=== PATIENT | female | born 1965 | race American Indian/Alaskan Native ===

== ENCOUNTER 2016-10-11 12:33 | Emergency (ER) | payer MEDICARE ==
[2016-10-11 13:39] LABS: Urine Drugs of Abuse Note Disclamer
[2016-10-11 13:55] LABS: Bacteria,Urine 1+ /HPF (Negative); Bilirubin,Urine NEG (Negative); Blood,Urine SM (Negative); Ketones,Urine 20 mg/dL (Negative); Leukocyte Esterase,Urine NEG (Negative); Mucus,Urine FEW /HPF; Nitrite,Urine NEG (Negative)
[2016-10-11 14:30] LABS: Basophils % (Auto) 0.7 % (0.0-1.8); Eosinophils % (Auto) 1.4 % (0.0-4.3); Hematocrit 37.8 % (30.3-42.9); Hemoglobin 12.6 gm/dl (10.1-14.3); Mean Corpuscular HGB Conc 33 % (30-34); Mean Corpuscular Hemoglobin 29 pg (28-32); Mean Corpuscular Volume 88 fl (79-97); Platelet Count 163 K/mm3 (140-440); Red Blood Count 4.32 M/mm3 (3.65-5.03); Red Cell Distribution Width 15.3 % (13.2-15.2)
[2016-10-11 14:31] LABS: Anion Gap 15 mmol/L; BUN/Creatinine Ratio 25.71; Blood Urea Nitrogen 18 mg/dL (7-17); Calcium 8.5 mg/dL (8.4-10.2); Carbon Dioxide 30 mmol/L (22-30); Glucose 260 mg/dL (65-100); Sodium 140 mmol/L (137-145)
[2016-10-11 14:40] LABS: INR 1.86 (0.87-1.13)
[2016-10-11] MEDS ORDERED: CATAPRES PO ONE (15:07)
[2016-10-11] MEDS ORDERED: APRESOLINE PO ONE (15:08)
[2016-10-11] MEDS ORDERED: NORVASC PO ONE (15:20)
[2016-10-11] MEDS ORDERED: COREG PO ONE (15:22)
--- NOTE | 2016-10-11 19:01 | Emergency Department Report ---
ED Psych HPI - General Chief Complaint: Psych Stated Complaint: EVALUATION Time Seen by Provider: 10/11/16 15:11 Source: EMS Mode of arrival: Stretcher - History of Present Illness Initial Comments: Patient is a 50-year-old female past medical history schizophrenia and diabetes who presents from [facility] for medical clearance. Patient was in her blood pressure checked and it was elevated. She states that she wants to go back to [facility]. She denies having any homicidal or suicidal ideation. However the triage summary states that she wants to cut her wrists. Patient also states that she is currently hearing voices at the moment. Patient symptoms are moderate and nothing makes them better or worse. They have been going on for the last 2 days. Patient denies having chest pain nausea vomiting or any fever. - Related Data Allergies Allergy/AdvReac Type Severity Reaction Status Date / Time hydrocortisone Allergy Unknown Verified 10/11/16 13:24 [From [facility]] yerba maya [From [facility]] Allergy Unknown Verified 10/11/16 13:24 ED Review of Systems ROS: Stated complaint: EVALUATION Other details as noted in HPI Constitutional: denies: chills, fever Eyes: denies: eye pain, eye discharge, vision change ENT: denies: ear pain, throat pain Respiratory: denies: cough, shortness of breath, wheezing Cardiovascular: denies: chest pain, palpitations Endocrine: no symptoms reported Gastrointestinal: denies: abdominal pain, nausea, diarrhea Genitourinary: denies: urgency, dysuria, discharge Musculoskeletal: denies: back pain, joint swelling, arthralgia Skin: denies: rash, lesions Neurological: denies: headache, weakness, paresthesias Psychiatric: auditory hallucinations. denies: anxiety, depression, homicidal thoughts, suicidal thoughts Hematological/Lymphatic: denies: easy bleeding, easy bruising ED Past Medical Hx - Past Medical History Hx Hypertension: Yes Hx Diabetes: Yes Hx Seizures: Yes Hx Psychiatric Treatment: Yes (Schizophrenia) Additional medical history: Neuropathy, Hyperlipidemia - Social History Smoking Status: Never Smoker Substance Use Type: None ED Physical Exam - General Limitations: No Limitations General appearance: alert, in no apparent distress - Head Head exam: Present: atraumatic, normocephalic - Eye Eye exam: Present: normal appearance - ENT ENT exam: Present: mucous membranes moist - Neck Neck exam: Present: normal inspection - Respiratory Respiratory exam: Present: normal lung sounds bilaterally. Absent: respiratory distress - Cardiovascular Cardiovascular Exam: Present: regular rate, normal rhythm. Absent: systolic murmur, diastolic murmur, rubs, gallop - GI/Abdominal GI/Abdominal exam: Present: soft, normal bowel sounds - Extremities Exam Extremities exam: Present: normal inspection - Back Exam Back exam: Present: normal inspection - Neurological Exam Neurological exam: Present: alert, oriented X3, CN II-XII intact - Psychiatric Psychiatric exam: Present: flat affect, other (auditory hallucinations). Absent : homicidal ideation, suicidal ideation - Skin Skin exam: Present: warm, dry, intact, normal color. Absent: rash ED Course Vital Signs 10/11/16 10/11/16 10/11/16 13:24 14:36 15:45 Temperature 98.0 F Pulse Rate 64 65 Respiratory Rate Blood Pressure 209/92 230/95 Blood Pressure 213/78 [Left] O2 Sat by Pulse 96 Oximetry 10/11/16 10/11/16 10/11/16 15:46 16:26 17:15 Temperature Pulse Rate 65 65 74 Respiratory 16 16 Rate Blood Pressure 230/95 Blood Pressure 192/67 173/68 [Left] O2 Sat by Pulse 95 95 Oximetry - Reevaluation(s) Reevaluation #1: 10/11/16 19:00 [facility] states that therefore I'll have patient be evaluated by mental health worker. Also see if the patient can be transferred to [facility]. Reevaluation #2: 10/11/16 19:45 Mental health worker has evaluated patient and I will sign [id number] hold for patient to the patient needing to go to refer [facility] and patient now stating that she wants to slice her wrists. ED Medical Decision Making - Lab Data Result diagrams: 10/11/16 14:01 10/11/16 14:01 Lab Results 10/11/16 10/11/16 10/11/16 Range/Units 13:30 13:30 14:01 WBC (4.5-11.0) K/mm3 RBC (3.65-5.03) M/mm3 Hgb (10.1-14.3) gm/dl Hct (30.3-42.9) % MCV (79-97) fl MCH (28-32) pg MCHC (30-34) % RDW (13.2-15.2) % Plt Count (140-440) K/mm3 Lymph % (Auto) (13.4-35.0) % [place] % (Auto) (0.0-7.3) % Eos % (Auto) (0.0-4.3) % Baso % (Auto) (0.0-1.8) % Lymph # (1.2-5.4) K/mm3 [place] # (0.0-0.8) K/mm3 Eos # (0.0-0.4) K/mm3 Baso # (0.0-0.1) K/mm3 Seg Neutrophils % (40.0-70.0) % Seg Neutrophils # (1.8-7.7) K/mm3 PT (12.2-14.9) Sec. INR (0.87-1.13) Sodium 140 (137-145) mmol/L Potassium 4.0 (3.6-5.0) mmol/L Chloride 99.0 (98-107) mmol/L Carbon Dioxide 30 (22-30) mmol/L Anion Gap 15 mmol/L BUN 18 H (7-17) mg/dL Creatinine 0.7 (0.7-1.2) mg/dL Estimated GFR > 60 ml/min BUN/Creatinine Ratio 25.71 % Glucose 260 H (65-100) mg/dL Calcium 8.5 (8.4-10.2) mg/dL Urine Color Yellow (Yellow) Urine Turbidity Clear (Clear) Urine pH 5.0 (5.0-7.0) Ur Specific [place] 1.032 H (1.003-1.030) Urine Protein 100 mg/dl (Negative) mg/dL Urine Glucose (UA) >=500 (Negative) mg/dL Urine Ketones 20 (Negative) mg/dL Urine Blood Sm (Negative) Urine Nitrite Neg (Negative) Urine Bilirubin Neg (Negative) Urine Urobilinogen 2.0 (<2.0) mg/dL Ur Leukocyte Esterase Neg (Negative) Urine WBC (Auto) 2.0 (0.0-6.0) /HPF Urine RBC (Auto) 5.0 (0.0-6.0) /HPF U Epithel Cells (Auto) 6.0 (0-13.0) /HPF Urine Bacteria (Auto) 1+ (Negative) /HPF Urine Mucus Few /HPF Urine Opiates Screen Presumptive negative Urine Methadone Screen Presumptive negative Ur Barbiturates Screen Presumptive negative Ur Phencyclidine Scrn Presumptive negative Ur Amphetamines Screen Presumptive negative U Benzodiazepines Scrn Presumptive negative Urine Cocaine Screen Presumptive negative U Marijuana (THC) Screen Presumptive negative Drugs of Abuse Note Disclamer Plasma/Serum Alcohol (0-0.07) gm% 10/11/16 10/11/16 10/11/16 Range/Units 14:01 14:01 14:01 WBC 10.0 (4.5-11.0) K/mm3 RBC 4.32 (3.65-5.03) M/mm3 Hgb 12.6 (10.1-14.3) gm/dl Hct 37.8 (30.3-42.9) % MCV 88 (79-97) fl MCH 29 (28-32) pg MCHC 33 (30-34) % RDW 15.3 H (13.2-15.2) % Plt Count 163 (140-440) K/mm3 Lymph % (Auto) 43.9 H (13.4-35.0) % [place] % (Auto) 6.0 (0.0-7.3) % Eos % (Auto) 1.4 (0.0-4.3) % Baso % (Auto) 0.7 (0.0-1.8) % Lymph # 4.4 (1.2-5.4) K/mm3 [place] # 0.6 (0.0-0.8) K/mm3 Eos # 0.1 (0.0-0.4) K/mm3 Baso # 0.1 (0.0-0.1) K/mm3 Seg Neutrophils % 48.0 (40.0-70.0) % Seg Neutrophils # 4.8 (1.8-7.7) K/mm3 PT 21.4 H (12.2-14.9) Sec. INR 1.86 H (0.87-1.13) Sodium (137-145) mmol/L Potassium (3.6-5.0) mmol/L Chloride (98-107) mmol/L Carbon Dioxide (22-30) mmol/L Anion Gap mmol/L BUN (7-17) mg/dL Creatinine (0.7-1.2) mg/dL Estimated GFR ml/min BUN/Creatinine Ratio % Glucose (65-100) mg/dL Calcium (8.4-10.2) mg/dL Urine Color (Yellow) Urine Turbidity (Clear) Urine pH (5.0-7.0) Ur Specific [place] (1.003-1.030) Urine Protein (Negative) mg/dL Urine Glucose (UA) (Negative) mg/dL Urine Ketones (Negative) mg/dL Urine Blood (Negative) Urine Nitrite (Negative) Urine Bilirubin (Negative) Urine Urobilinogen (<2.0) mg/dL Ur Leukocyte Esterase (Negative) Urine WBC (Auto) (0.0-6.0) /HPF Urine RBC (Auto) (0.0-6.0) /HPF U Epithel Cells (Auto) (0-13.0) /HPF Urine Bacteria (Auto) (Negative) /HPF Urine Mucus /HPF Urine Opiates Screen Urine Methadone Screen Ur Barbiturates Screen Ur Phencyclidine Scrn Ur Amphetamines Screen U Benzodiazepines Scrn Urine Cocaine Screen U Marijuana (THC) Screen Drugs of Abuse Note Plasma/Serum Alcohol < 0.01 (0-0.07) gm% - Medical Decision Making Chief medical diagnosis: Hypotension secondary to his essential hypertension Differential medical diagnosis: Substance induced mood disorder, psychosis, schizophrenia, bipolar CBC, CMP, urine drug screen, urinalysis and I'll give patient oral antihypertensive medication. Also I will have patient seen by mental health worker. Critical care attestation.: If time is entered above; I have spent that time in minutes in the direct care of this critically ill patient, excluding procedure time. ED Disposition Clinical Impression: HTN (hypertension) Qualifiers: Hypertension type: essential hypertension Qualified Code(s): I10 - Essential ( primary) hypertension Schizophrenia Qualifiers: Schizophrenia type: unspecified Qualified Code(s): F20.9 - Schizophrenia, unspecified Disposition: DC/TX-65 PSY HOSP/PSY UNIT Is pt being admited?: No Does the pt Need Aspirin: No Condition: Stable Instructions: Hypertension (ED) Referrals: PRIMARY CARE, [Primary Care Provider] - 3-5 Days
[2016-10-11] MEDS ORDERED: ALUM-MAG HYDROX-SIMETH 200-200-20MG/5ML PO PRN (19:46)
[2016-10-11] MEDS ORDERED: TYLENOL PO PRN (19:46)
[2016-10-11] MEDS ORDERED: COREG PO PRN (19:47)
[2016-10-12] MEDS ORDERED: NACL 0.9% 1000 ML 1,000 ML IV ONE (01:28)
[2016-10-12 15:20] VITALS: BP 135/82
== END 2016-10-12 18:50 ==
LOC: ED 12:33 → EEVIPCON 12:33 → ED 10-12 18:50
DX: F20.9 Schizophrenia, unspecified (principal); E11.9 Type 2 diabetes mellitus without complications; E78.00 Pure hypercholesterolemia, unspecified; E11.65 Type 2 diabetes mellitus with hyperglycemia
CPT/HCPCS: 36415; 80048; 80307; 81001; 82962; 85025; 85610; 96374; 99285; G0480; J7030; 80320; J1815

== ENCOUNTER 2019-10-06 23:06 | Emergency (ER) | payer SELFPAY ==
[2019-10-06] MEDS ORDERED: ASPIRIN 325 MG TAB PO ONE (23:23)
--- NOTE | 2019-10-07 00:07 | XRay Report ---
CHEST 1 VIEW, 10/06/2019 11:52 PM CLINICAL INFORMATION/INDICATION: Chest pain COMPARISON: None FINDINGS: SUPPORT DEVICES: None. HEART: The cardiac silhouette is normal in size. LUNGS/PLEURA: The lungs are clear of focal airspace disease or significant pleural effusion. ADDITIONAL FINDINGS: No additional acute findings. IMPRESSION: 1. No evidence of acute cardiopulmonary process. Signer Name: Heydi Marcelo MD Signed: 10/07/2019 12:03 AM Workstation Name: [id number]
[2019-10-07 00:32] LABS: BUN/Creatinine Ratio 21; Blood Urea Nitrogen 19 mg/dL (7-17); Calcium 9.7 mg/dL (8.4-10.2); Hemolysis Index 7
[2019-10-07 00:34] LABS: Hematocrit 33.9 % (30.3-42.9); Hemoglobin 11.5 gm/dl (10.1-14.3); Mean Corpuscular HGB Conc 34 % (30-34); Mean Corpuscular Volume 87 fl (79-97); Platelet Count 247 K/mm3 (140-440); Red Cell Distribution Width 15.8 % (13.2-15.2)
[2019-10-07 03:27] VITALS: BP 145/55
--- NOTE | 2019-10-07 04:07 | Emergency Department Report ---
ED Chest Pain HPI - General Chief Complaint: Chest Pain Stated Complaint: CP PUI?: No Time Seen by Provider: 10/07/19 03:54 Source: patient, EMS Mode of arrival: Stretcher Limitations: No Limitations - History of Present Illness Initial Comments: Mrs. Ashley is a 53-year-old female with history of diabetes mellitus, hypertension, schizophrenia, seizures, neuropathy, hyperlipidemia who presents with chest pain. Gradual onset this evening while she was getting out of the bathtub. Sharp mild pain. She denies chest pain. She denies shortness of breath. She denies leg pain. No previous history of cardiac disease. MD Complaint: chest pain -: Gradual, This evening Onset: during rest, during exertion Pain Location: substernal Severity: mild Quality: sharp Consistency: constant Improves With: nothing Worsens With: nothing re: denies: nausea, vomting, diaphoresis, dyspnea, sense of impending doom - Related Data Allergies Allergy/AdvReac Type Severity Reaction Status Date / Time hydrocortisone Allergy Unknown Verified 10/11/16 13:24 [From [facility]] yerba maya [From [facility]] Allergy Unknown Verified 10/11/16 13:24 Heart Score - HEART Score History: Slightly suspicious EKG: Normal Age: 45-65 Risk factors: > 3 risk factors or hx of atherosclerotic disease Troponin: < normal limit HEART Score: 3 ED Review of Systems ROS: Stated complaint: CP Other details as noted in HPI Comment: All other systems reviewed and negative Constitutional: denies: fever, malaise Respiratory: denies: cough, shortness of breath, wheezing Cardiovascular: chest pain Gastrointestinal: denies: abdominal pain, nausea, vomiting ED Past Medical Hx - Past Medical History Previous Medical History?: Yes Hx Hypertension: Yes Hx Diabetes: Yes Hx Seizures: Yes Hx Psychiatric Treatment: Yes (Schizophrenia) Additional medical history: Neuropathy, Hyperlipidemia - Surgical History Past Surgical History?: No - Social History Smoking Status: Current Every Day Smoker Substance Use Type: None ED Physical Exam - General Limitations: No Limitations General appearance: alert, in no apparent distress, other (Patient is sleeping once I enter examination room. She is easily arousable and gives a full history.) - Head Head exam: Present: atraumatic, normocephalic - Eye Eye exam: Present: normal appearance - ENT ENT exam: Present: mucous membranes moist - Neck Neck exam: Present: normal inspection, full ROM - Respiratory Respiratory exam: Present: normal lung sounds bilaterally. Absent: respiratory distress, wheezes, rales, rhonchi - Cardiovascular Cardiovascular Exam: Present: regular rate, normal rhythm, normal heart sounds. Absent: systolic murmur, diastolic murmur, rubs, gallop - GI/Abdominal GI/Abdominal exam: Present: soft, normal bowel sounds. Absent: distended, tenderness, guarding, rebound - Extremities Exam Extremities exam: Present: normal inspection - Back Exam Back exam: Present: normal inspection - Neurological Exam Neurological exam: Present: alert, oriented X3 - Psychiatric Psychiatric exam: Present: normal mood, flat affect - Skin Skin exam: Present: warm, dry, intact, normal color. Absent: rash ED Course Vital Signs 10/06/19 10/07/19 10/07/19 23:23 03:20 03:21 Temperature 97.7 F Pulse Rate 70 Respiratory 18 Rate Blood Pressure 140/61 O2 Sat by Pulse 97 96 97 Oximetry 10/07/19 10/07/19 10/07/19 03:23 03:24 03:25 Temperature Pulse Rate 63 59 L 64 Respiratory 14 13 13 Rate Blood Pressure 145/55 145/55 O2 Sat by Pulse 96 93 96 Oximetry ED Medical Decision Making - Lab Data Result diagrams: 10/06/19 23:52 10/07/19 Unknown Laboratory Results - last 24 hr 10/06/19 10/07/19 10/07/19 23:52 02:19 Unknown WBC 10.1 RBC 3.90 Hgb 11.5 Hct 33.9 MCV 87 MCH 30 MCHC 34 RDW 15.8 H Plt Count 247 Lymph # Piece Worker Sodium 142 Potassium 4.3 Chloride 104.9 Carbon Dioxide 23 Anion Gap 18 BUN 19 H Creatinine 0.9 Estimated GFR > 60 BUN/Creatinine Ratio 21 Glucose 313 H Calcium 9.7 Troponin T < 0.010 < 0.010 - EKG Data -: EKG Interpreted by Me EKG shows normal: sinus rhythm, axis, intervals, QRS complexes, ST-T waves Rate: normal - EKG Data Interpretation: normal EKG 10/07/19 04:06 EKG obtained 2316 interpreted by me Normal sinus rhythm normal rate normal axis normal intervals no ST elevation no ST-T signs of ischemia normal EKG - Radiology Data Radiology results: report reviewed Chest radiograph: No acute findings - Medical Decision Making Ms. Ashley presents with chest pain atypical for ACS. For initial examination, patient was sleeping comfortably. Without tachycardia shortness of breath I do not suspect pulmonary embolism or acute emergent cause of chest pain such as aortic dissection. With chest radiograph pneumothorax pneumonia have been ruled out. Patient was referred to outpatient medicine physician and armed custom protection officer. Referral request faxed to [facility]. She is discharged home. Critical care attestation.: If time is entered above; I have spent that time in minutes in the direct care of this critically ill patient, excluding procedure time. ED Disposition Clinical Impression: Chest pain Disposition: DC-01 TO HOME OR SELFCARE Is pt being admited?: No Does the pt Need Aspirin: No Condition: Stable Instructions: Chest Pain (ED) Referrals: KAREN PLATT MD [Staff Physician] - 3-5 Days YUMIKO MACDONALD MD [Staff Physician] - 3-5 Days
[2019-10-07 04:52] LABS: Anisocytosis 1+; Basophils % (Manual) 0 % (0.0-1.8); Platelet Estimate Consistent w Auto; Total Cells Counted 100
== END 2019-10-07 04:30 | disposition home or self-care (01) ==
LOC: ED 23:06
DX: R07.89 Other chest pain (principal); I10 Essential (primary) hypertension; E11.9 Type 2 diabetes mellitus without complications; Z86.69 Personal history of other diseases of the nervous system and sense organs; F20.9 Schizophrenia, unspecified; F17.200 Nicotine dependence, unspecified, uncomplicated; Z79.899 Other long term (current) drug therapy
CPT/HCPCS: 36415; 71045; 80048; 84484; 85007; 85025; 93005

== ENCOUNTER 2020-02-14 09:49 | Emergency (ER) | payer MEDICARE ==
[2020-02-14 09:57] VITALS: BP 148/61
--- NOTE | 2020-02-14 10:44 | Emergency Department Report ---
Chief Complaint: Extremity Injury, Lower Stated Complaint: LT HIP PAIN Time Seen by Provider: 02/14/20 10:42 - HPI History of Present Illness: no fall or trauma ambulatory to ER with l hip pain no neuro def or focal def - ROS Review of Systems: l hip pain for 3 days did not see pcp out of motrin at home - Exam Vital Signs: Vital Signs 02/14/20 09:56 Temperature 98.0 F Pulse Rate 71 Respiratory 18 Rate Blood Pressure 148/61 O2 Sat by Pulse 96 Oximetry Physical Exam: a/o nad ambulatory neurovasc intact dp plus 2 b no cva tenderness no abd pain abd snt no n/v/d no fever no cough no sob a/p without focal def MSE screening note: Focused history and physical exam performed. Due to findings the following was ordered: no life threat will see pcp in AM Patient discussed with doctor:: LISSET PARKER ED Disposition for MSE Clinical Impression: Hip pain Disposition: DC-01 TO HOME OR SELFCARE Condition: Stable Prescriptions: Ibuprofen [Ibu-200] 600 mg PO Q8H #14 tablet Referrals: KAREN PLATT MD [Staff Physician] - 3-5 Days
[2020-02-14] MEDS ORDERED: IBUPROFEN 800 MG TAB PO ONE (10:45)
== END 2020-02-14 10:50 | disposition left against medical advice (07) ==
LOC: ED 09:49
DX: M25.552 Pain in left hip (principal)
CPT/HCPCS: 99282

== ENCOUNTER 2020-03-04 07:16 | Emergency (ER) | payer SELFPAY ==
[2020-03-04 07:26] VITALS: BP 142/70
[2020-03-04] MEDS ORDERED: IBUPROFEN 800 MG TAB PO ONE (07:39)
--- NOTE | 2020-03-04 07:39 | Emergency Department Report ---
Chief Complaint: Extremity Problem,Nontraumatic Stated Complaint: HIP PAIN Time Seen by Provider: 03/04/20 07:37 - HPI History of Present Illness: Patient is a 54-year-old -[place] female who comes to the emergency room with acute on chronic left hip pain. Patient has no fall or trauma. She states her hip is hurt for over a month and she reports that she has been taking [id number] Motrin with no relief. Patient denies having seen her primary care doctor. Patient tells me that she does have a primary care doctor. However, when I called her friend and roommate the roommate says that there is a problem with her insurance and that they have been unable to verify her medical insurance. The friend as this is why she was brought to the emergency room. Patient has a medical history of diabetes, hypertension and schizophrenia. The patient and friend state that she is taking her medications. The friend adds that she has bubble packs of her medicines and is not out of her meds. When asked how she gets her medications they are mail order and the friend does not have know how they come or how they are paid for. I explained to the patient and friend that the patient has a nonmedical emergency. She has no acute traumatic injury to her hip. And that she really needs to be seen by primary care who can follow her not only for her hip pain but also her chronic medical conditions. She is can get to a point where she needs her medications refilled and be unable to get them refilled in the emergency room. I have encouraged him to be proactive in resolving this insurance issue and finding a primary care doctor to address these chronic is sues. - ROS Review of Systems: Left hip pain. Worse with movement. Ambulatory. Full range of motion of hip. Full range of motion of knee. Motrin alleviates the pain to some degree but does not take it away. Patient has not tried Tylenol. She has not tried warm bathing or compresses. - Exam Vital Signs: Vital Signs 03/04/20 07:23 Temperature 98.3 F Pulse Rate 76 Respiratory 16 Rate Blood Pressure 142/70 O2 Sat by Pulse 98 Oximetry Physical Exam: Patient is alert and oriented x4. Her friend brings her into the ER in a wheelchair. However, the patient is able to walk. She has no tenderness on palpation to the hip. Patient has full range of motion of the knee. Patient has no distal swelling. DP +2 bilaterally. Patient has a history of schizophrenia. No HI no SI. Denies hearing voices or seeing things that are not present. States that she is taking her schizophrenic medications. Patient is cooperative. MSE screening note: Focused history and physical exam performed. Due to findings the following was ordered: Patient has no life-threatening medical issues and is being MSE with PCP referral. Patient being discharged home. Her friend dropped her off is gone to work so patient is calling over for a ride home. Patient verbalizes understanding of the need to see primary care. She is has referral in her hand. She is also been encouraged to continue Motrin, Tylenol and warm baths and compresses. Patient discussed with doctor:: FERNANDO KEATING ED Disposition for MSE Clinical Impression: Chronic hip pain Disposition: MED SCREENING EXAM-LEFT Is pt being admited?: No Does the pt Need Aspirin: No Condition: Stable Instructions: Chronic Pain (ED) Additional Instructions: continue over the counter motrin and or tylenol for pain warm compresses referral to our PCP is given below Referrals: KAREN PLATT MD [Staff Physician] - 3-5 Days Time of Disposition: 07:38
== END 2020-03-04 08:00 | disposition left against medical advice (07) ==
LOC: ED 07:16
DX: M25.552 Pain in left hip (principal); Z53.21 Procedure and treatment not carried out due to patient leaving prior to being seen by health care provider

== ENCOUNTER 2020-06-02 22:08 | Emergency (ER) | payer OTHER ==
[2020-06-02 23:54] LABS: Basophils # (Auto) 0.1 K/mm3 (0.0-0.1); Basophils % (Auto) 0.9 % (0.0-1.8); Eosinophils # (Auto) 0.2 K/mm3 (0.0-0.4); Eosinophils % (Auto) 2.2 % (0.0-4.3); Hematocrit 33.8 % (30.3-42.9); Hemoglobin 11.3 gm/dl (10.1-14.3); Lymphocytes # (Auto) 4.5 K/mm3 (1.2-5.4); Lymphocytes % (Auto) 39.9 % (13.4-35.0); Mean Corpuscular HGB Conc 34 % (30-34); Mean Corpuscular Volume 89 fl (79-97); Monocytes # (Auto) 0.5 K/mm3 (0.0-0.8); Monocytes % (Auto) 4.7 % (0.0-7.3); Platelet Count 219 K/mm3 (140-440); Red Blood Count 3.81 M/mm3 (3.65-5.03); Red Cell Distribution Width 16.4 % (13.2-15.2)
[2020-06-02 23:59] LABS: Calcium 9.1 mg/dL (8.4-10.2)
--- NOTE | 2020-06-03 01:26 | Emergency Department Report ---
ED Psych HPI - General Chief Complaint: Psych Stated Complaint: AMS Time Seen by Provider: 06/03/20 01:19 Source: patient Mode of arrival: Ambulatory - History of Present Illness Initial Comments: 54-year-old female, history of schizophrenia, presents to ED with report of auditory hallucinations. Patient states voices are telling her to drown herself. Patient reports left-sided. States she did attempt to drown herself but states it did not work. Patient states she is supposed to be on psychiatric medications but has not been taking them. She denies any alcohol or drug. She denies any HI. Patient has fracture boot to right foot. States she broke her ankle a couple of weeks ago. MD Complaint: suicidal ideation, other -: unknown Associated Psychiatric Symptoms: suicidal ideation, auditory hallucinations Quality: constant Improves With: none Worsens With: medication Context: not taking psychiatric Associated Symptoms: denies other symptoms - Related Data Home Medications Medication Instructions Recorded Confirmed Last Taken Citalopram Hydrobromide [celeXA] 40 mg PO DAILY 06/03/20 06/03/20 Unknown Citalopram [celeXA] 20 mg PO QDAY 06/03/20 06/03/[address] [DepaKOTE DR] 500 mg PO BID 06/03/20 06/03/20 Unknown Losartan [Cozaar] 25 mg PO QDAY 06/03/20 06/03/20 Unknown Ziprasidone [Geodon] 40 mg PO DAILY 06/03/20 06/03/20 Unknown amLODIPine [Norvasc] 10 mg PO DAILY 06/03/20 06/03/20 Unknown traMADoL [Ultram] 50 mg PO Q4HR PRN 06/03/20 06/03/20 Unknown Allergies Allergy/AdvReac Type Severity Reaction Status Date / Time hydrocortisone Allergy Unknown Verified 03/04/20 07:26 [From [facility]] yerba maya [From [facility]] Allergy Unknown Verified 03/04/20 07:26 ED Review of Systems ROS: Stated complaint: AMS Other details as noted in HPI Comment: All other systems reviewed and negative Psychiatric: auditory hallucinations, suicidal thoughts ED Past Medical Hx - Past Medical History Hx Hypertension: Yes Hx Diabetes: Yes Hx Seizures: Yes Hx Psychiatric Treatment: Yes (Schizophrenia) Additional medical history: Neuropathy, Hyperlipidemia - Surgical History Hx Cholecystectomy: Yes - Social History Smoking Status: Current Every Day Smoker Substance Use Type: None - Medications Home Medications: Home Medications Medication Instructions Recorded Confirmed Last Taken Type Citalopram Hydrobromide [celeXA] 40 mg PO DAILY 06/03/20 06/03/20 Unknown History Citalopram [celeXA] 20 mg PO QDAY 06/03/20 06/03/[address] [DepaKOTE DR] 500 mg PO BID 06/03/20 06/03/20 Unknown History Losartan [Cozaar] 25 mg PO QDAY 06/03/20 06/03/20 Unknown History Ziprasidone [Geodon] 40 mg PO DAILY 06/03/20 06/03/20 Unknown History amLODIPine [Norvasc] 10 mg PO DAILY 06/03/20 06/03/20 Unknown History traMADoL [Ultram] 50 mg PO Q4HR PRN 06/03/20 06/03/20 Unknown History ED Physical Exam - General Limitations: No Limitations General appearance: alert, in no apparent distress - Head Head exam: Present: atraumatic, normocephalic - Eye Eye exam: Present: normal appearance - ENT ENT exam: Present: mucous membranes moist - Neck Neck exam: Present: normal inspection - Respiratory Respiratory exam: Absent: respiratory distress - Cardiovascular Cardiovascular Exam: Present: regular rate, normal rhythm - GI/Abdominal GI/Abdominal exam: Absent: distended - Extremities Exam Extremities exam: Present: other (Fracture boot right foot) - Neurological Exam Neurological exam: Present: alert, oriented X3 - Psychiatric Psychiatric exam: Present: normal affect, normal mood - Skin Skin exam: Present: warm, dry, intact, normal color ED Course Vital Signs 06/02/20 06/03/20 06/03/20 23:02 02:17 04:26 Temperature 98.3 F 98.3 F Pulse Rate 85 77 Respiratory 16 18 20 Rate Blood Pressure 154/64 Blood Pressure 114/55 [Right] O2 Sat by Pulse 98 97 98 Oximetry ED Medical Decision Making - Lab Data Result diagrams: 06/02/20 23:14 06/02/20 23:14 Critical care attestation.: If time is entered above; I have spent that time in minutes in the direct care of this critically ill patient, excluding procedure time. ED Disposition Condition: Stable Referrals: PRIMARY CARE, [Primary Care Provider] - 3-5 Days
[2020-06-03] MEDS ORDERED: SODIUM CHLORIDE 0.9% 1000 ML 1,000 ML IV ONE (03:20)
[2020-06-03] MEDS: traMADol 50 MG TAB PO PRN ×2 (05:00→11:25)
[2020-06-03 07:58] LABS: Bilirubin,Urine NEG (Negative); Blood,Urine NEG (Negative); Color,Urine Straw (Yellow); Mucus,Urine FEW /HPF; Urobilinogen,Urine < 2.0 mg/dL (<2.0)
[2020-06-03 08:04] LABS: Amphetamine Screen,Urine Negative; Benzodiazepines Screen,Urine Negative; Cannabinoid Screen,Urine Negative; Cocaine Screen,Urine Negative; Methadone Screen,Urine Negative; Opiate Screen,Urine Negative
--- NOTE | 2020-06-03 09:53 | Consultation ---
History of Present Illness - Reason for Consult Consult date: 06/03/20 Reason for consult: MHE Requesting physician: ROSE VALLEJO - History of Present Psychiatric Illness Per ED Provider: 54-year-old female, history of schizophrenia, presents to ED with report of auditory hallucinations. Patient states voices are telling her to drown herself. Patient reports left-sided. States she did attempt to drown herself but states it did not work. Patient states she is supposed to be on psychiatric medications but has not been taking them. She denies any alcohol or drug. She denies any HI. Patient has fracture boot to right foot. States she broke her ankle a couple of weeks ago. PSYCH HPI Patient is single, disabled 54-year-old -[place] female with past psychiatric history of schizophrenia and past medical history of diabetes, hypertension and seizure who currently resides in a personal group home presented to the ED with chief complaint of having hallucinations. Patient reported she has been having very bad hallucinations since last week, was hoping taking the medication that she had previously stopped after she traveled to attend a [facility] forgot to bring along her medications with her. She reports she is to resume her medication, but symptoms are still not gone awake she reports she has been hearing commanding auditory hallucination telling her to drown herself. She reportedly with psychiatric issues since age of 17, currently has 1 daughter who resides in [facility] and has 2 other cousins in the [facility] but rarely communicate. PAST PSYCHIATRIC HISTORY Diagnoses: Schizophrenia Suicide attempts or Self-harm behavior: Yes Prior psychiatric hospitalizations: Yes Substance Abuse history: Cocaine Previous psychiatric medications tried: Geodon, Celexa and Depakote Outpatient treatment: Yes PAST MEDICAL HISTORY: Hypertension, diabetes, seizures Family Psychiatric History: None reported or documented SOCIAL HISTORY Marital Status: Single Living Arrangements: Personal-group home Employment Status: Disabled Access to guns/weapons: None reported Education: College History of Abuse: None reported Legal History: None report REVIEW OF SYSTEMS Constitutional: Negative for weight loss ENT: Negative for stridor Respiratory: Negative for cough or hemoptysis All other systems reviewed and are negative MENTAL STATUS EXAMINATION General Appearance and Behavior: Age appropriate, good hygiene, wearing appropriate clothes, poor eye contact, cooperative polite with questioning. Cooperation: Cooperative Psychomotor Behavior: Psychomotor normal Mood: so-so Affect and affective range: dysthymic Thought Process:=Illogical, Thought Content: Obsessions, Hallucinations Speech: Normal rate volume and rhythm Intellectual Functioning: Average Suicidal Ideation: Denies SI Homicidal Ideation: Denies HI Impulse Control: Impaired Insight and Judgment: Impaired Memory: Short term memory impaired, Attention: Divided attention impaired Orientation: Alert, oriented Diagnoses: Assessment and Plan - Psychiatric problem (1) Schizophrenia Current Visit: Yes Status: Acute Treatment Plan We will resume patient's home medication MEDICATIONS: Risks, benefits and alternatives of medications discussed with the patient, questions answered and consent obtained from patient. PSYCHOTHERAPY: Supportive psychotherapy provided MEDICAL: Per primary team DELIRIUM PRECAUTIONS: Please re-orient patient frequently, keep lights on during the day, and minimize benzodiazepines and opiates as these medications could worsen patient's confusion. AGING ROOM HAND: DISPOSITION: Do Recommend acute inpatient psychiatric hospitalization at this time. Case discussed with Dr. Kan who agrees with current disposition LEGAL STATUS: 1013 FOLLOW-UP: Will follow Thank you for the consult. Please contact with any questions and/or concerns. Medications and Allergies Allergies Allergy/AdvReac Type Severity Reaction Status Date / Time hydrocortisone Allergy Unknown Verified 03/04/20 07:26 [From [facility]] yerba maya [From [facility]] Allergy Unknown Verified 03/04/20 07:26 Home Medications Medication Instructions Recorded Confirmed Last Taken Type Citalopram Hydrobromide [celeXA] 40 mg PO DAILY 06/03/20 06/03/20 Unknown History Citalopram [celeXA] 20 mg PO QDAY 06/03/20 06/03/[address] [Elda MACIEL] 500 mg PO BID 06/03/20 06/03/20 Unknown History Losartan [Cozaar] 25 mg PO QDAY 06/03/20 06/03/20 Unknown History Ziprasidone [Geodon] 40 mg PO DAILY 06/03/20 06/03/20 Unknown History amLODIPine [Norvasc] 10 mg PO DAILY 06/03/20 06/03/20 Unknown History traMADoL [Ultram] 50 mg PO Q4HR PRN 06/03/20 06/03/20 Unknown History Active Meds: Active Medications Divalproex Sodium (Divalproex Dr 500 Mg Tab) 500 mg PO BID BHASKAR Tramadol HCl (Tramadol 50 Mg Tab) 50 mg PO Q4HR PRN PRN Reason: PAIN Last Admin: 06/03/20 05:00 Dose: 50 mg Documented by: Mental Status Exam - Vital signs Last Vital Signs Temp 98.3 F 06/03/20 02:17 Pulse 77 06/03/20 02:17 Resp 20 06/03/20 04:26 BP 114/55 06/03/20 02:17 Pulse Ox 98 06/03/20 04:26 Results Result Diagrams: 06/02/20 23:14 06/02/20 23:14 Abnormal lab results 06/02/20 06/02/20 06/02/20 Range/Units 23:14 23:14 23:14 WBC (4.5-11.0) K/mm3 RDW (13.2-15.2) % Lymph % (Auto) (13.4-35.0) % Sodium 136 L (137-145) mmol/L Chloride 96.8 L (98-107) mmol/L BUN 26 H (7-17) mg/dL Creatinine 1.3 H (0.6-1.2) mg/dL Glucose 303 H (65-100) mg/dL POC Glucose (70-105) mg/dL Salicylates < 0.3 L (2.8-20.0) mg/dL Acetaminophen 5.0 L (10.0-30.0) ug/mL 06/02/20 06/03/20 Range/Units 23:14 04:37 WBC 11.2 H (4.5-11.0) K/mm3 RDW 16.4 H (13.2-15.2) % Lymph % (Auto) 39.9 H (13.4-35.0) % Sodium (137-145) mmol/L Chloride (98-107) mmol/L BUN (7-17) mg/dL Creatinine (0.6-1.2) mg/dL Glucose (65-100) mg/dL POC Glucose 231 H (70-105) mg/dL Salicylates (2.8-20.0) mg/dL Acetaminophen (10.0-30.0) ug/mL All other labs normal. Assessment and Plan - Psychiatric problem (1) Schizophrenia Current Visit: Yes Status: Acute
[2020-06-03] MEDS ORDERED: DIVALPROEX DR 500 MG TAB PO SCH (10:00)
[2020-06-03] MEDS ORDERED: CITALOPRAM HYDROBROMIDE 40 MG PO SCH (11:00)
[2020-06-03] MEDS ORDERED: ZIPRASIDONE 40 MG CAP PO SCH (11:00)
[2020-06-03] MEDS ORDERED: CITALOPRAM 20 MG TAB PO SCH (11:30)
[2020-06-04 02:34] VITALS: BP 133/52
== END 2020-06-03 20:30 | disposition other institution (70) ==
LOC: EEVIPCON 22:08 → ED 22:08
DX: R41.82 Altered mental status, unspecified (principal); I10 Essential (primary) hypertension; E11.9 Type 2 diabetes mellitus without complications; G40.909 Epilepsy, unspecified, not intractable, without status epilepticus; F20.9 Schizophrenia, unspecified; F17.200 Nicotine dependence, unspecified, uncomplicated; Z90.49 Acquired absence of other specified parts of digestive tract; Z79.899 Other long term (current) drug therapy; Z20.828 Contact with and (suspected) exposure to other viral communicable diseases
CPT/HCPCS: 36415; 80048; 80307; 81001; 82962; 85025; 96360; 96361; 99285; J7030; U0003; 80320; G0480

== ENCOUNTER 2020-09-27 11:52 | Inpatient (IN) | payer MEDICARE, OTHER ==
--- NOTE | 2020-09-27 12:43 | XRay Report ---
CHEST 1 VIEW 09/27/2020 12:28 PM INDICATION / CLINICAL INFORMATION: Altered mental status. COMPARISON: 10/06/2019 FINDINGS: SUPPORT DEVICES: None. HEART / MEDIASTINUM: No significant abnormality. LUNGS / PLEURA: Multifocal patchy airspace disease throughout the right lung. No pneumothorax. ADDITIONAL FINDINGS: No significant additional findings. IMPRESSION: 1. Multifocal patchy airspace disease throughout the right lung. Signer Name: Julius Soares MD Signed: 09/27/2020 12:38 PM Workstation Name: [id number]
--- NOTE | 2020-09-27 12:47 | Emergency Department Report ---
HPI - General Time Seen by Provider: 09/27/20 12:10 - HPI HPI: This is a 54-year-old -[place] female presents to the emergency department via EMS from her home, that she shares with roommates, with a complaint of altered mental status and shortness of breath with low oxygen. The patient is currently confused and therefore a poor historian. Information is obtained from EMS and previous charts. EMS found the patient to have a room air pulse ox of about 55%. She was given some supplemental oxygen via nasal cannula and a breathing treatment and they were able to get up her oxygen saturation to about 90%. Upon arrival to our emergency department, on room air, the patient is seen to be 70% oxygen saturation. The patient is lethargic/somnolent and attempts to answer questions with nodding her head or grunting. Patient was seen here about 4 days ago with complaint of left leg pain and some rib pain after a previous fall. There was also concern at that time as the patient had a history of lower extremity DVT, but no acute DVT was found. She does appear to have a history of hypertension and schizophrenia. ED Past Medical Hx - Past Medical History Hx Hypertension: Yes Hx Diabetes: Yes Hx Seizures: Yes Hx Psychiatric Treatment: Yes (Schizophrenia) Additional medical history: Neuropathy, Hyperlipidemia - Surgical History Hx Cholecystectomy: Yes - Social History Smoking Status: Unknown if ever smoked - Medications Home Medications: Home Medications Medication Instructions Recorded Confirmed Last Taken Type Citalopram Hydrobromide [celeXA] 40 mg PO DAILY 06/03/20 09/27/20 Unknown History Citalopram [celeXA] 20 mg PO QDAY 06/03/20 09/27/20 Unknown History Divalproex [Elda MACIEL] 500 mg PO BID 06/03/20 09/27/20 Unknown History Losartan [Cozaar] 25 mg PO QDAY 06/03/20 09/27/20 Unknown History Ziprasidone [Geodon] 40 mg PO DAILY 06/03/20 09/27/20 Unknown History amLODIPine [Norvasc] 10 mg PO DAILY 06/03/20 09/27/20 Unknown History traMADoL [Ultram] 50 mg PO Q4HR PRN 06/03/20 09/27/20 Unknown History ED Review of Systems ROS: Stated complaint: YAMIL Other details as noted in HPI Comment: Unobtainable due to pts medical conditions Physical Exam - Physical Exam Vital Signs: Vital Signs 09/27/20 09/27/20 09/27/20 12:06 12:31 12:32 Temperature 100.5 F H Pulse Rate 92 H 85 Respiratory 21 18 Rate Blood Pressure 137/52 O2 Sat by Pulse 70 L 97 Oximetry Physical Exam: GENERAL: The patient is ill-appearing. HENT: Normocephalic. Atraumatic. Patient has moist mucous membranes. EYES: Extraocular motions are intact. Pupils equal reactive to light bilaterally. NECK: Supple. Trachea is midline. CHEST/LUNGS: Rhonchi heard bilaterally. There is tachypnea. No cough heard during examination. HEART/CARDIOVASCULAR: Regular. There is no tachycardia. There is no murmur. ABDOMEN: Abdomen is soft, nontender. Patient has normal bowel sounds. SKIN: Skin is warm and dry. NEURO: The patient is awake and cooperative, but appears confused. Answers questions yes/no or with nodding or grunting. Withdraws from painful stimuli. MUSCULOSKELETAL: There is no obvious deformity. ED Course Vital Signs 09/27/20 09/27/20 09/27/20 12:06 12:31 12:32 Temperature 100.5 F H Pulse Rate 92 H 85 Respiratory 21 18 Rate Blood Pressure 137/52 O2 Sat by Pulse 70 L 97 Oximetry - Consultations Consultation #1: 09/27/20 14:[address] Walters at [place] and we have been given permission to admit this patient to our hospital. ED Medical Decision Making - Lab Data Result diagrams: 09/27/20 12:47 09/27/20 12:47 Lab Results 09/27/20 09/27/20 09/27/20 Range/Units 12:47 12:47 12:47 WBC 11.3 H (4.5-11.0) K/mm3 RBC 4.08 (3.65-5.03) M/mm3 Hgb 12.1 (10.1-14.3) gm/dl Hct 35.9 (30.3-42.9) % MCV 88 (79-97) fl MCH 30 (28-32) pg MCHC 34 (30-34) % RDW 15.7 H (13.2-15.2) % Plt Count 286 (140-440) K/mm3 Lymph % (Auto) 15.5 (13.4-35.0) % [place] % (Auto) 7.2 (0.0-7.3) % Eos % (Auto) 0.3 (0.0-4.3) % Baso % (Auto) 1.4 (0.0-1.8) % Lymph # (Auto) 1.8 (1.2-5.4) K/mm3 [place] # (Auto) 0.8 (0.0-0.8) K/mm3 Eos # (Auto) 0.0 (0.0-0.4) K/mm3 Baso # (Auto) 0.2 H (0.0-0.1) K/mm3 Seg Neutrophils % 75.6 H (40.0-70.0) % Seg Neutrophils # 8.5 H (1.8-7.7) K/mm3 PT 13.9 (12.2-14.9) Sec. INR 1.01 (0.87-1.13) APTT 26.6 (24.2-36.6) Sec. D-Dimer 445.09 H (0-234) ng/mlDDU Sodium 132 L (137-145) mmol/L Potassium 5.6 H (3.6-5.0) mmol/L Chloride 92.7 L (98-107) mmol/L Carbon Dioxide 29 (22-30) mmol/L Anion Gap 16 mmol/L BUN 22 H (7-17) mg/dL Creatinine 1.0 (0.6-1.2) mg/dL Estimated GFR > 60 ml/min BUN/Creatinine Ratio 22 % Glucose 254 H (65-100) mg/dL Lactic Acid (0.7-2.0) mmol/L Calcium 9.3 (8.4-10.2) mg/dL Ferritin (10.0-200.0) ng/mL Total Bilirubin 0.40 (0.1-1.2) mg/dL AST 15 (5-40) units/L ALT 10 (7-56) units/L Alkaline Phosphatase 83 (35-129) units/L Ammonia (25-60) umol/L Lactate Dehydrogenase 221 H (91-180) units/L Troponin T 0.012 (0.00-0.029) ng/mL C-Reactive Protein 10.10 H (0.00-1.30) mg/dL NT-Pro-B Natriuret Pep 1392 H (0-900) pg/mL Total Protein 7.8 (6.3-8.2) g/dL Albumin 3.9 (3.9-5) g/dL Albumin/Globulin Ratio 1.0 % Procalcitonin (<0.15) ng/mL TSH (0.270-4.200) mlU/mL Plasma/Serum Alcohol (0-0.07) % 09/27/20 09/27/20 09/27/20 Range/Units 12:47 12:47 12:47 WBC (4.5-11.0) K/mm3 RBC (3.65-5.03) M/mm3 Hgb (10.1-14.3) gm/dl Hct (30.3-42.9) % MCV (79-97) fl MCH (28-32) pg MCHC (30-34) % RDW (13.2-15.2) % Plt Count (140-440) K/mm3 Lymph % (Auto) (13.4-35.0) % [place] % (Auto) (0.0-7.3) % Eos % (Auto) (0.0-4.3) % Baso % (Auto) (0.0-1.8) % Lymph # (Auto) (1.2-5.4) K/mm3 [place] # (Auto) (0.0-0.8) K/mm3 Eos # (Auto) (0.0-0.4) K/mm3 Baso # (Auto) (0.0-0.1) K/mm3 Seg Neutrophils % (40.0-70.0) % Seg Neutrophils # (1.8-7.7) K/mm3 PT (12.2-14.9) Sec. INR (0.87-1.13) APTT (24.2-36.6) Sec. D-Dimer (0-234) ng/mlDDU Sodium (137-145) mmol/L Potassium (3.6-5.0) mmol/L Chloride (98-107) mmol/L Carbon Dioxide (22-30) mmol/L Anion Gap mmol/L BUN (7-17) mg/dL Creatinine (0.6-1.2) mg/dL Estimated GFR ml/min BUN/Creatinine Ratio % Glucose (65-100) mg/dL Lactic Acid (0.7-2.0) mmol/L Calcium (8.4-10.2) mg/dL Ferritin 142.8 (10.0-200.0) ng/mL Total Bilirubin (0.1-1.2) mg/dL AST (5-40) units/L ALT (7-56) units/L Alkaline Phosphatase (35-129) units/L Ammonia 17.0 L (25-60) umol/L Lactate Dehydrogenase (91-180) units/L Troponin T (0.00-0.029) ng/mL C-Reactive Protein (0.00-1.30) mg/dL NT-Pro-B Natriuret Pep (0-900) pg/mL Total Protein (6.3-8.2) g/dL Albumin (3.9-5) g/dL Albumin/Globulin Ratio % Procalcitonin (<0.15) ng/mL TSH 1.760 (0.270-4.200) mlU/mL Plasma/Serum Alcohol (0-0.07) % 09/27/20 09/27/20 09/27/20 Range/Units 12:47 12:47 13:43 WBC (4.5-11.0) K/mm3 RBC (3.65-5.03) M/mm3 Hgb (10.1-14.3) gm/dl Hct (30.3-42.9) % MCV (79-97) fl MCH (28-32) pg MCHC (30-34) % RDW (13.2-15.2) % Plt Count (140-440) K/mm3 Lymph % (Auto) (13.4-35.0) % [place] % (Auto) (0.0-7.3) % Eos % (Auto) (0.0-4.3) % Baso % (Auto) (0.0-1.8) % Lymph # (Auto) (1.2-5.4) K/mm3 [place] # (Auto) (0.0-0.8) K/mm3 Eos # (Auto) (0.0-0.4) K/mm3 Baso # (Auto) (0.0-0.1) K/mm3 Seg Neutrophils % (40.0-70.0) % Seg Neutrophils # (1.8-7.7) K/mm3 PT (12.2-14.9) Sec. INR (0.87-1.13) APTT (24.2-36.6) Sec. D-Dimer (0-234) ng/mlDDU Sodium (137-145) mmol/L Potassium (3.6-5.0) mmol/L Chloride (98-107) mmol/L Carbon Dioxide (22-30) mmol/L Anion Gap mmol/L BUN (7-17) mg/dL Creatinine (0.6-1.2) mg/dL Estimated GFR ml/min BUN/Creatinine Ratio % Glucose (65-100) mg/dL Lactic Acid 1.20 (0.7-2.0) mmol/L Calcium (8.4-10.2) mg/dL Ferritin (10.0-200.0) ng/mL Total Bilirubin (0.1-1.2) mg/dL AST (5-40) units/L ALT (7-56) units/L Alkaline Phosphatase (35-129) units/L Ammonia (25-60) umol/L Lactate Dehydrogenase (91-180) units/L Troponin T (0.00-0.029) ng/mL C-Reactive Protein (0.00-1.30) mg/dL NT-Pro-B Natriuret Pep (0-900) pg/mL Total Protein (6.3-8.2) g/dL Albumin (3.9-5) g/dL Albumin/Globulin Ratio % Procalcitonin < 0.05 (<0.15) ng/mL TSH (0.270-4.200) mlU/mL Plasma/Serum Alcohol < 0.01 (0-0.07) % - EKG Data -: EKG Interpreted by Ks EKG shows normal: sinus rhythm, axis, intervals, QRS complexes, ST-T waves (Nonspecific T waves laterally) Rate: normal - EKG Data When compared to previous EKG there are: previous EKG unavailable Interpretation: other (Sinus rhythm at 86 bpm, normal axis, normal intervals, nonspecific T waves laterally. No ST elevation SD) - Radiology Data Radiology results: report reviewed CT HEAD WITHOUT CONTRAST INDICATION / CLINICAL INFORMATION: Altered mental status. TECHNIQUE: All CT scans at this location are performed using CT dose reduction for ALARA by means of automated exposure control. COMPARISON: None available. FINDINGS: BRAIN PARENCHYMA: No acute intracranial hemorrhage. No evidence of recent infarct. No mass effect or midline shift. VENTRICULAR SYSTEM/EXTRA-AXIAL SPACES: Ventricles are normal for age. No extra-axial fluid collection. ORBITS: Normal as visualized. SKELETAL SYSTEM/SOFT TISSUES: Normal bones and soft tissues. PARANASAL SINUSES/MASTOID AIR CELLS: No significant abnormality. ADDITIONAL FINDINGS: None. IMPRESSION: 1. No acute intracranial abnormality. CHEST 1 VIEW 09/27/2020 12:28 PM INDICATION / CLINICAL INFORMATION: Altered mental status. COMPARISON: 10/06/2019 FINDINGS: SUPPORT DEVICES: None. HEART / MEDIASTINUM: No significant abnormality. LUNGS / PLEURA: Multifocal patchy air space disease throughout the right lung. No pneumothorax. ADDITIONAL FINDINGS: No significant additional findings. IMPRESSION: 1. Multifocal patchy airspace disease throughout the right lung. - Medical Decision Making This patient presents to the emergency department from her house with altered mental status, shortness of breath and hypoxia. She was about 55% on room air initially with EMS. The patient has a room air oxygen saturation of 70%. She went up to 90%, and later 95%, on a nonrebreather. Chest x-ray shows bilateral patchy infiltrates much greater on the left with concern for pneumonia. Patient's labs are remarkable for mild hyperkalemia with a potassium of 5.6, hyperglycemia with a sugar of about 250, and elevated inflammatory markers D- dimer, LDH and CRP. The patient is supposedly vaccinated against COVID-19. However, with the hypoxia, pneumonia, elevated inflammatory markers, and this delta variant, the patient is still a concern for a COVID-19 infection. She is allergic to hydrocortisone so the patient has not been given Decadron to treat her hypoxia as is usually an appropriate treatment for a Covid infection. She has been given IV antibiotics and blood cultures have been sent. The patient has become more lucid during her ED course. However, the patient has been seen pulling off her mask and monitoring equipment. I just saw the patient talking on the phone to her roommates and her oxygen saturation, when she was placed back on the monitor, was at 49%. The patient was placed on back on the nonrebreather and went up to 83%. We will continue to monitor and respiratory therapy is on their way to assess for high flow oxygen versus BiPAP. The patient will be admitted to the IM and was accepted for admission by the hospitalist, Dr. Paredes. Critical Care Time: Yes Critical care time in (mins) excluding proc time.: 35 Critical care attestation.: If time is entered above; I have spent that time in minutes in the direct care of this critically ill patient, excluding procedure time. Critical care time was spent on this patient in doing her initial evaluation, multiple reevaluations, ordering and interpretation of labs and imaging, supplemental oxygen for her hypoxia, multiple discussions. Critical Care Time: 35 minutes ED Disposition Clinical Impression: Acute respiratory failure with hypoxia, Suspected COVID-19 virus infection, Pneumonia, Hypoxia Disposition: ADMITTED INPATIENT Is pt being admited?: Yes Condition: Serious Instructions: Bacterial Pneumonia (ED) Time of Disposition: 18:25
[2020-09-27] MEDS ORDERED: AZITHROMYCIN/NS 500 MG/250 ML 500 MG/250 ML BAG IV ONE (12:49)
[2020-09-27] MEDS ORDERED: cefTRIAXone/NS 1 GM/50 ML 1 GM/50 ML BAG IV ONE (12:49)
[2020-09-27 13:08] LABS: Basophils # (Auto) 0.2 K/mm3 (0.0-0.1); Basophils % (Auto) 1.4 % (0.0-1.8); Eosinophils % (Auto) 0.3 % (0.0-4.3); Hematocrit 35.9 % (30.3-42.9); Hemoglobin 12.1 gm/dl (10.1-14.3); Lymphocytes # (Auto) 1.8 K/mm3 (1.2-5.4); Lymphocytes % (Auto) 15.5 % (13.4-35.0); Mean Corpuscular HGB Conc 34 % (30-34); Mean Corpuscular Volume 88 fl (79-97); Monocytes # (Auto) 0.8 K/mm3 (0.0-0.8); Monocytes % (Auto) 7.2 % (0.0-7.3); Platelet Count 286 K/mm3 (140-440); Red Blood Count 4.08 M/mm3 (3.65-5.03); Red Cell Distribution Width 15.7 % (13.2-15.2)
[2020-09-27 13:16] LABS: Alanine Aminotransferase 10 units/L (7-56); Albumin 3.9 g/dL (3.9-5); BUN/Creatinine Ratio 22; Blood Urea Nitrogen 22 mg/dL (7-17); Calcium 9.3 mg/dL (8.4-10.2); Hemolysis Index 4
[2020-09-27 13:18] LABS: INR 1.01 (0.87-1.13)
[2020-09-27 13:19] LABS: Partial Thromboplastin Time 26.6 Sec. (24.2-36.6)
[2020-09-27] MEDS ORDERED: ACETAMINOPHEN 325 MG TAB PO ONE (13:50)
--- NOTE | 2020-09-27 14:07 | Cat Scan Report ---
CT HEAD WITHOUT CONTRAST INDICATION / CLINICAL INFORMATION: Altered mental status. TECHNIQUE: All CT scans at this location are performed using CT dose reduction for ALARA by means of automated exposure control. COMPARISON: None available. FINDINGS: BRAIN PARENCHYMA: No acute intracranial hemorrhage. No evidence of recent infarct. No mass effect or midline shift. VENTRICULAR SYSTEM/EXTRA-AXIAL SPACES: Ventricles are normal for age. No extra-axial fluid collection . ORBITS: Normal as visualized. SKELETAL SYSTEM/SOFT TISSUES: Normal bones and soft tissues. PARANASAL SINUSES/MASTOID AIR CELLS: No significant abnormality. ADDITIONAL FINDINGS: None. IMPRESSION: 1. No acute intracranial abnormality. Signer Name: Vik Ramirez MD Signed: 09/27/2020 2:02 PM Workstation Name: [id number]
[2020-09-27] MEDS ORDERED: ACETAMINOPHEN 325 MG TAB PO PRN (21:27)
[2020-09-27] MEDS ORDERED: ONDANSETRON 4 MG/2 ML INJ IV PRN (21:27)
[2020-09-27] MEDS ORDERED: HYDROmorphone 1 MG/1 ML INJ IV PRN (21:27)
[2020-09-27] MEDS ORDERED: MORPHINE 2 MG/1 ML INJ IV PRN (21:27)
[2020-09-27] MEDS ORDERED: SODIUM CHLORIDE 0.9% 1000 ML 1,000 ML IV SCH (21:30)
[2020-09-27] MEDS: dexAMETHasone 4 MG/ML VIAL IV SCH (23:58)
[2020-09-28] MEDS: ENOXAPARIN 40 MG/0.4 ML INJ SUB-Q SCH ×2 (03:19→12:37)
[2020-09-28 06:50] LABS: Basophils # (Auto) 0.1 K/mm3 (0.0-0.1); Basophils % (Auto) 0.7 % (0.0-1.8); Eosinophils % (Auto) 0.5 % (0.0-4.3); Hematocrit 32.9 % (30.3-42.9); Hemoglobin 10.9 gm/dl (10.1-14.3); Lymphocytes # (Auto) 2.3 K/mm3 (1.2-5.4); Lymphocytes % (Auto) 21.2 % (13.4-35.0); Mean Corpuscular HGB Conc 33 % (30-34); Mean Corpuscular Volume 90 fl (79-97); Monocytes # (Auto) 0.6 K/mm3 (0.0-0.8); Monocytes % (Auto) 5.6 % (0.0-7.3); Platelet Count 252 K/mm3 (140-440); Red Blood Count 3.67 M/mm3 (3.65-5.03); Red Cell Distribution Width 15.5 % (13.2-15.2)
--- NOTE | 2020-09-28 06:57 | History and Physical Report ---
History of Present Illness Date of examination: 09/27/20 Date of admission: 09/27/2020 Chief complaint: Shortness of breath for 1 day History of present illness: 54-year-old -French female with history of hypertension and behavioral disorder on Depakote and Geodon lives in a alf. Brought in by EMS for low oxygen saturations of 55%. EMS gave supplemental oxygen and they were able to get her oxygen saturations up to 90%. In the emergency room patient was again in the 70s and was lethargic and somnolent. Unable to review much history. Patient was seen in the same emergency room 4 days ago with history of back pain. But no acute DVT was found. Vaccination status not known. Pulmonary and problem was shortness of breath and low oxygen saturations. - Past Medical History --Hypertension: Yes -- Diabetes: Yes --Seizures: Yes --Psychiatric Treatment: Yes (Schizophrenia) --Additional medical history: Neuropathy, Hyperlipidemia - Surgical History --Cholecystectomy: Yes - Social History --Smoking Status: Unknown if ever smoked - Medications Home Medications: Home Medications Medication Instructions Recorded Confirmed Last Taken Type Citalopram Hydrobromide [celeXA] 40 mg PO DAILY 06/03/20 09/27/20 Unknown History Citalopram [celeXA] 20 mg PO QDAY 06/03/20 09/27/[address] [DepaKOTE DR] 500 mg PO BID 06/03/20 09/27/20 Unknown History Losartan [Cozaar] 25 mg PO QDAY 06/03/20 09/27/20 Unknown History Ziprasidone [Geodon] 40 mg PO DAILY 06/03/20 09/27/20 Unknown History amLODIPine [Norvasc] 10 mg PO DAILY 06/03/20 09/27/20 Unknown History traMADoL [Ultram] 50 mg PO Q4HR PRN 06/03/20 09/27/20 Unknown History Review of Systems ROS: Stated complaint: YAMIL Other details as noted in HPI Comment: Unobtainable due to pts medical conditions Medications and Allergies Allergies Allergy/AdvReac Type Severity Reaction Status Date / Time hydrocortisone Allergy Unknown Verified 03/04/20 07:26 [From EarSol-HC] yerba maya [From EarSol-[facility]] Allergy Unknown Verified 03/04/20 07:26 Home Medications Medication Instructions Recorded Confirmed Last Taken Type Citalopram Hydrobromide [celeXA] 40 mg PO DAILY 06/03/20 09/27/20 Unknown History Citalopram [celeXA] 20 mg PO QDAY 06/03/20 09/27/[address] [Elda MACIEL] 500 mg PO BID 06/03/20 09/27/20 Unknown History Losartan [Cozaar] 25 mg PO QDAY 06/03/20 09/27/20 Unknown History Ziprasidone [Geodon] 40 mg PO DAILY 06/03/20 09/27/20 Unknown History amLODIPine [Norvasc] 10 mg PO DAILY 06/03/20 09/27/20 Unknown History traMADoL [Ultram] 50 mg PO Q4HR PRN 06/03/20 09/27/20 Unknown History Active Meds: Active Medications Acetaminophen (Acetaminophen 325 Mg Tab) 650 mg PO Q4H PRN PRN Reason: Pain MILD(1-3)/Fever >100.5/CAM Dexamethasone (Dexamethasone 4 Mg/Ml Vial) 8 mg IV Q24H [facility] Last Admin: 09/27/20 23:58 Dose: 8 mg Documented by: Enoxaparin Sodium (Enoxaparin 40 Mg/0.4 Ml Inj) 40 mg SUB-Q QDAY [facility] Last Admin: 09/28/20 03:19 Dose: 40 mg Documented by: Hydromorphone HCl (Hydromorphone 1 Mg/1 Ml Inj) 0.5 mg IV Q3H PRN PRN Reason: Pain , Severe (7-10) Sodium Chloride (Nacl 0.9% 1000 Ml) 1,000 mls @ 100 mls/hr IV DIRECT [facility] Azithromycin (Zithromax/Ns) 500 mg in 250 mls @ 250 mls/hr IV Q24H [facility] Ceftriaxone Sodium (Rocephin/Ns 2 Gm/100 Ml) 2 gm in 100 mls @ 200 mls/hr IV Q24HR [facility]; Protocol Morphine Sulfate (Morphine 2 Mg/1 Ml Inj) 2 mg IV Q4H PRN PRN Reason: Pain, Moderate (4-6) Ondansetron HCl (Ondansetron 4 Mg/2 Ml Inj) 4 mg IV Q8H PRN PRN Reason: Nausea And Vomiting Sodium Chloride (Sodium Chloride 0.9% 10 Ml Flush Syringe) 10 ml IV BID [facility] Last Admin: 09/27/20 23:58 Dose: 10 ml Documented by: Sodium Chloride (Sodium Chloride 0.9% 10 Ml Flush Syringe) 10 ml IV PRN PRN PRN Reason: LINE FLUSH Exam - Constitutional Vitals: Temp Pulse Resp BP Pulse Ox 100.5 F H 77 16 136/58 94 09/27/20 12:32 09/28/20 03:15 09/28/20 03:15 09/28/20 03:15 09/28/20 03:15 General appearance: Present: severe distress, well-nourished - EENT Eyes: Present: PERRL ENT: hearing intact, clear oral mucosa - Neck Neck: Present: supple, normal ROM - Respiratory Respiratory effort: normal Respiratory: bilateral: CTA, rhonchi (Scattered rhonchi) - Cardiovascular Heart rate: 90 Rhythm: regular Heart Sounds: Present: S1 & S2. Absent: rub, click - Extremities Extremities: pulses symmetrical, No edema Peripheral Pulses: within normal limits - Abdominal General gastrointestinal: Present: soft, non-tender, non-distended, normal bowel sounds Female genitourinary: Present: normal - Integumentary Integumentary: Present: clear, warm, dry - Musculoskeletal Musculoskeletal: gait normal, strength equal bilaterally - Psychiatric Psychiatric: appropriate mood/affect, intact judgment & insight - Neurologic Neurologic: CNII-XII intact, moves all extremities HEART Score - HEART Score History: Slightly suspicious Risk factors: 1-2 risk factors Troponin: Troponin T 0.012 ng/mL (0.00-0.029) 09/27/20 12:47 Troponin: < normal limit - Critical Actions Critical Actions: 0-3 pts:0.9-1.7%risk of adverse cardiac event.Candidate for discharge Results - Labs CBC & Chem 7: 09/28/20 05:59 09/27/20 12:47 Labs: Laboratory Last Values WBC 10.8 K/mm3 (4.5-11.0) 09/28/20 05:59 RBC 3.67 M/mm3 (3.65-5.03) 09/28/20 05:59 Hgb 10.9 gm/dl (10.1-14.3) 09/28/20 05:59 Hct 32.9 % (30.3-42.9) 09/28/20 05:59 MCV 90 fl (79-97) 09/28/20 05:59 MCH 30 pg (28-32) 09/28/20 05:59 MCHC 33 % (30-34) 09/28/20 05:59 RDW 15.5 % (13.2-15.2) H 09/28/20 05:59 Plt Count 252 K/mm3 (140-440) 09/28/20 05:59 Lymph % (Auto) 21.2 % (13.4-35.0) 09/28/20 05:59 Borden % (Auto) 5.6 % (0.0-7.3) 09/28/20 05:59 Eos % (Auto) 0.5 % (0.0-4.3) 09/28/20 05:59 Baso % (Auto) 0.7 % (0.0-1.8) 09/28/20 05:59 Lymph # (Auto) 2.3 K/mm3 (1.2-5.4) 09/28/20 05:59 Borden # (Auto) 0.6 K/mm3 (0.0-0.8) 09/28/20 05:59 Eos # (Auto) 0.0 K/mm3 (0.0-0.4) 09/28/20 05:59 Baso # (Auto) 0.1 K/mm3 (0.0-0.1) 09/28/20 05:59 Seg Neutrophils % 72.0 % (40.0-70.0) H 09/28/20 05:59 Seg Neutrophils # 7.8 K/mm3 (1.8-7.7) H 09/28/20 05:59 PT 13.9 Sec. (12.2-14.9) 09/27/20 12:47 INR 1.01 (0.87-1.13) 09/27/20 12:47 APTT 26.6 Sec. (24.2-36.6) 09/27/20 12:47 D-Dimer 445.09 ng/mlDDU (0-234) H 09/27/20 12:47 Sodium 132 mmol/L (137-145) L 09/27/20 12:47 Potassium 5.6 mmol/L (3.6-5.0) H 09/27/20 12:47 Chloride 92.7 mmol/L (98-107) L 09/27/20 12:47 Carbon Dioxide 29 mmol/L (22-30) 09/27/20 12:47 Anion Gap 16 mmol/L 09/27/20 12:47 BUN 22 mg/dL (7-17) H 09/27/20 12:47 Creatinine 1.0 mg/dL (0.6-1.2) 09/27/20 12:47 Estimated GFR > 60 ml/min 09/27/20 12:47 BUN/Creatinine Ratio 22 % 09/27/20 12:47 Glucose 254 mg/dL (65-100) H 09/27/20 12:47 Lactic Acid 1.20 mmol/L (0.7-2.0) 09/27/20 13:43 Calcium 9.3 mg/dL (8.4-10.2) 09/27/20 12:47 Ferritin 142.8 ng/mL (10.0-200.0) 09/27/20 12:47 Total Bilirubin 0.40 mg/dL (0.1-1.2) 09/27/20 12:47 AST 15 units/L (5-40) 09/27/20 12:47 ALT 10 units/L (7-56) 09/27/20 12:47 Alkaline Phosphatase 83 units/L (35-129) 09/27/20 12:47 Ammonia 17.0 umol/L (25-60) L 09/27/20 12:47 Lactate Dehydrogenase 221 units/L (91-180) H 09/27/20 12:47 Troponin T 0.012 ng/mL (0.00-0.029) 09/27/20 12:47 C-Reactive Protein 10.10 mg/dL (0.00-1.30) H 09/27/20 12:47 NT-Pro-B Natriuret Pep 1392 pg/mL (0-900) H 09/27/20 12:47 Total Protein 7.8 g/dL (6.3-8.2) 09/27/20 12:47 Albumin 3.9 g/dL (3.9-5) 09/27/20 12:47 Albumin/Globulin Ratio 1.0 % 09/27/20 12:47 Procalcitonin < 0.05 ng/mL (<0.15) 09/27/20 12:47 TSH 1.760 mlU/mL (0.270-4.200) 09/27/20 12:47 Plasma/Serum Alcohol < 0.01 % (0-0.07) 09/27/20 12:47 Short CBC 09/27/20 09/28/20 Range/Units 12:47 05:59 WBC 11.3 H 10.8 (4.5-11.0) K/mm3 Hgb 12.1 10.9 (10.1-14.3) gm/dl Hct 35.9 32.9 (30.3-42.9) % Plt Count 286 252 (140-440) K/mm3 BMP 09/27/20 12:47 Sodium 132 L Potassium 5.6 H Chloride 92.7 L Carbon Dioxide 29 BUN 22 H Creatinine 1.0 Glucose 254 H Calcium 9.3 Cardiac Enzymes 09/27/20 Range/Units 12:47 Troponin T 0.012 (0.00-0.029) ng/mL Liver Function 09/27/20 Range/Units 12:47 Total Bilirubin 0.40 (0.1-1.2) mg/dL AST 15 (5-40) units/L ALT 10 (7-56) units/L Alkaline Phosphatase 83 (35-129) units/L Albumin 3.9 (3.9-5) g/dL Microbiology: Microbiology 09/27/20 13:43 Peripheral/Venous Blood Culture - Preliminary Culture in Progress 09/27/20 13:47 Peripheral/Venous Blood Culture - Preliminary Culture in Progress - Imaging and Cardiology Chest x-ray: report reviewed Imaging and Cardiology: Chest x-ray Multifocal patchy airspace disease throughout the right lung head CT No acute intracranial abnormality Assessment and Plan Advance Directives: Yes (Full code) VTE prophylaxis?: Chemical Plan of care discussed with patient/family: Yes - Patient Problems (1) Acute respiratory failure with hypoxia Current Visit: Yes Status: Acute Plan to address problem: Patient on high flow nasal cannula oxygen IV Decadron initiated IV antibiotics in the form of Zithromax and ceftriaxone initiated Patient appears to be unvaccinated (2) Pneumonia Current Visit: Yes Status: Acute Plan to address problem: Right-sided pneumonia Possible bacterial pneumonia Patient initiated on IV Zithromax and IV Rocephin Covid test pending (3) Suspected COVID-19 virus infection Current Visit: Yes Status: Acute Plan to address problem: Covid test pending Patient initiated on IV Decadron ID consult (4) Schizophrenia Current Visit: No Status: Chronic Qualifiers: Schizophrenia type: unspecified Qualified Code(s): F20.9 - Schizophrenia, unspecified Plan to address problem: Continue Geodon and Depakote (5) Hyponatremia Current Visit: Yes Status: Acute Plan to address problem: Normal saline for about 10 hours (6) Hyperkalemia Current Visit: Yes Status: Acute Plan to address problem: Treated (7) DVT prophylaxis Current Visit: Yes Status: Acute Plan to address problem: On Lovenox and GI prophylaxis
[2020-09-28 07:10] LABS: Alanine Aminotransferase 8 units/L (7-56); Albumin 3.3 g/dL (3.9-5); BUN/Creatinine Ratio 29; Blood Urea Nitrogen 26 mg/dL (7-17); Calcium 8.5 mg/dL (8.4-10.2); Hemolysis Index 0
[2020-09-28] MEDS: CHOLECALCIFEROL (VIT D3) 1000 UNIT (25 mcg) TAB PO SCH (12:35)
[2020-09-28] MEDS: ASCORBIC ACID 500 MG TAB PO SCH ×2 (12:35→23:00)
[2020-09-28] MEDS: ZINC SULFATE 220 MG CAP PO SCH ×2 (12:35→23:00)
--- NOTE | 2020-09-28 14:16 | Progress Note ---
Assessment and Plan Advance Directives: Yes (Full code) VTE prophylaxis?: Chemical Plan of care discussed with patient/family: Yes - Patient Problems (1) Acute respiratory failure with hypoxia Current Visit: Yes Status: Acute Plan to address problem: Patient on high flow nasal cannula oxygen IV Decadron initiated IV antibiotics in the form of Zithromax and ceftriaxone initiated Patient appears to be unvaccinated Pulmonary consult placed (2) Pneumonia Current Visit: Yes Status: Acute Plan to address problem: Right-sided pneumonia Possible bacterial pneumonia Patient initiated on IV Zithromax and IV Rocephin Covid test pending (3) Suspected COVID-19 virus infection Current Visit: Yes Status: Acute Plan to address problem: Covid test pending Patient initiated on IV Decadron ID consult (4) Schizophrenia Current Visit: No Status: Chronic Qualifiers: Schizophrenia type: unspecified Qualified Code(s): F20.9 - Schizophrenia, unspecified Plan to address problem: Continue Geodon and Depakote (5) Hyponatremia Current Visit: Yes Status: Acute Plan to address problem: Normal saline for about 10 hours (6) Hyperkalemia Current Visit: Yes Status: Acute Plan to address problem: Treated (7) DVT prophylaxis Current Visit: Yes Status: Acute Plan to address problem: On Lovenox and GI prophylaxis 09/28/2020: Pending COVID-19 test. Patient states that she did get Covid vaccine. She is currently on high flow nasal cannula. Titrate off oxygen as patient tolerates. Pulmonary consult placed. Subjective Date of service: 09/27/20 Interval history: Resting comfortably on a.m. encounter. Objective - Constitutional Vitals: Vital Signs - 12hr 09/28/20 09/28/20 09/28/20 02:31 02:45 02:51 Pulse Rate 83 79 Respiratory 13 14 Rate Blood Pressure 136/58 136/58 O2 Sat by Pulse 95 95 95 Oximetry 09/28/20 09/28/20 09/28/20 03:01 03:15 08:50 Pulse Rate 81 77 Respiratory 16 16 Rate Blood Pressure 136/58 136/58 O2 Sat by Pulse 94 94 96 Oximetry General appearance: Present: no acute distress, well-nourished - EENT Eyes: PERRL, EOM intact ENT: hearing intact, clear oral mucosa Ears: bilateral: normal - Neck Neck: supple, normal ROM - Respiratory Respiratory effort: normal Respiratory: bilateral: CTA - Breasts Breasts: normal - Cardiovascular Rhythm: regular Heart Sounds: Present: S1 & S2. Absent: gallop, rub Extremities: pulses intact, No edema, normal color, Full ROM - Gastrointestinal General gastrointestinal: Present: soft, non-tender, non-distended, normal bowel sounds - Genitourinary Female genitourinary: normal - Integumentary Integumentary: clear, warm, dry - Musculoskeletal Musculoskeletal: 1, strength equal bilaterally - Neurologic Neurologic: moves all extremities - Psychiatric Psychiatric: memory intact, appropriate mood/affect, intact judgment & insight - Labs CBC & Chem 7: 09/28/20 05:59 09/28/20 05:59 Labs: Abnormal lab results 09/28/20 09/28/20 Range/Units 05:59 05:59 RDW 15.5 H (13.2-15.2) % Seg Neutrophils % 72.0 H (40.0-70.0) % Seg Neutrophils # 7.8 H (1.8-7.7) K/mm3 Potassium 5.2 H (3.6-5.0) mmol/L BUN 26 H (7-17) mg/dL Glucose 198 H (65-100) mg/dL Albumin 3.3 L (3.9-5) g/dL HEART Score - HEART Score Risk factors: 1-2 risk factors Troponin: Troponin T 0.012 ng/mL (0.00-0.029) 09/27/20 12:47 Troponin: < normal limit - Critical Actions Critical Actions: 0-3 pts:0.9-1.7%risk of adverse cardiac event.Candidate for discharge
[2020-09-28] MEDS ORDERED: AZITHROMYCIN/NS 500 MG/250 ML 500 MG/250 ML BAG IV SCH (15:00)
[2020-09-28] MEDS: cefTRIAXone/NS 2 GM/100 ML 2 GM/100 ML BAG IV SCH (15:10)
[2020-09-28] MEDS: dexAMETHasone 4 MG/ML VIAL IV SCH (23:00)
--- NOTE | 2020-09-29 08:41 | Consultation ---
History of Present Illness Consult date: 09/29/20 Requesting physician: JOANNE GARCIA Reason for consult: hypoxemia History of present illness: 54 y/o morbidly obese female admitted with acute respiratory failure. Initial concern for COVID but covid testing is negative. CXR shows right greater than left infiltrates with white count of 11k. She was started on abx and steroids as well as COVID precautions. BNP was >1300 on admit and she is hypertensive. Patient is vaccinated for COVID and currently resides in a long term. Past History Past Medical History: hypertension, other (behavioral/psych disorder) Medications and Allergies Allergies Allergy/AdvReac Type Severity Reaction Status Date / Time hydrocortisone Allergy Unknown Verified 03/04/20 07:26 [From EarSol-HC] yerba maya [From EarSol-HC] Allergy Unknown Verified 03/04/20 07:26 Home Medications Medication Instructions Recorded Confirmed Last Taken Type Citalopram Hydrobromide [celeXA] 40 mg PO DAILY 06/03/20 09/27/20 Unknown History Citalopram [celeXA] 20 mg PO QDAY 06/03/20 09/27/20 Unknown History Divalproex [Elda MACIEL] 500 mg PO BID 06/03/20 09/27/20 Unknown History Losartan [Cozaar] 25 mg PO QDAY 06/03/20 09/27/20 Unknown History Ziprasidone [Geodon] 40 mg PO DAILY 06/03/20 09/27/20 Unknown History amLODIPine [Norvasc] 10 mg PO DAILY 06/03/20 09/27/20 Unknown History traMADoL [Ultram] 50 mg PO Q4HR PRN 06/03/20 09/27/20 Unknown History Active Meds: Active Medications Acetaminophen (Acetaminophen 325 Mg Tab) 650 mg PO Q4H PRN PRN Reason: Pain MILD(1-3)/Fever >100.5/CAM Ascorbic Acid (Ascorbic Acid 500 Mg Tab) 1,000 mg PO BID [facility] Last Admin: 09/28/20 23:00 Dose: 1,000 mg Documented by: Azithromycin (Azithromycin 250 Mg Tab) 500 mg PO Q24H [facility]; Protocol Stop: 10/01/20 10:01 Cholecalciferol (Cholecalciferol (Vit D3) 1000 Unit (25 Mcg) Tab) 1,000 unit PO QDAY [facility] Last Admin: 09/28/20 12:35 Dose: 1,000 unit Documented by: Dexamethasone (Dexamethasone 4 Mg/Ml Vial) 8 mg IV Q24H [facility] Last Admin: 09/28/20 23:00 Dose: 8 mg Documented by: Enoxaparin Sodium (Enoxaparin 40 Mg/0.4 Ml Inj) 40 mg SUB-Q QDAY [facility] Last Admin: 09/28/20 12:37 Dose: 40 mg Documented by: Furosemide (Furosemide 40 Mg/4 Ml Inj) 40 mg IV ONCE ONE Stop: 09/29/20 08:36 Hydromorphone HCl (Hydromorphone 1 Mg/1 Ml Inj) 0.5 mg IV Q3H PRN PRN Reason: Pain , Severe (7-10) Sodium Chloride (Nacl 0.9% 1000 Ml) 1,000 mls @ 100 mls/hr IV DIRECT [facility] Ceftriaxone Sodium (Rocephin/Ns 2 Gm/100 Ml) 2 gm in 100 mls @ 200 mls/hr IV Q24HR [facility]; Protocol Stop: 10/02/20 10:29 Last Admin: 09/28/20 15:10 Dose: 200 mls/hr Documented by: Morphine Sulfate (Morphine 2 Mg/1 Ml Inj) 2 mg IV Q4H PRN PRN Reason: Pain, Moderate (4-6) Ondansetron HCl (Ondansetron 4 Mg/2 Ml Inj) 4 mg IV Q8H PRN PRN Reason: Nausea And Vomiting Sodium Chloride (Sodium Chloride 0.9% 10 Ml Flush Syringe) 10 ml IV BID [facility] Last Admin: 09/28/20 21:00 Dose: 10 ml Documented by: Sodium Chloride (Sodium Chloride 0.9% 10 Ml Flush Syringe) 10 ml IV PRN PRN PRN Reason: LINE FLUSH Zinc Sulfate (Zinc Sulfate 220 Mg Cap) 220 mg PO BID [facility] Last Admin: 09/28/20 23:00 Dose: 220 mg Documented by: Review of Systems All systems: negative Physical Examination Vital signs: Vital Signs Pulse Resp Pulse Ox 92 H 21 70 L 09/27/20 12:06 09/27/20 12:06 09/27/20 12:06 General appearance: no acute distress, alert Eyes: non-icteric Neck: supple, other (large in circumference) Effort: mildly labored Ascultation: Bilateral: rales Percussion: Bilateral: not dull Cardiovascular: regular rate and rhythm Gastrointestinal: other (obese) Results - Laboratory Findings CBC and BMP: 09/28/20 05:59 09/28/20 05:59 PT/INR, D-dimer PT 13.9 Sec. (12.2-14.9) 09/27/20 12:47 INR 1.01 (0.87-1.13) 09/27/20 12:47 D-Dimer 445.09 ng/mlDDU (0-234) H 09/27/20 12:47 Abnormal lab findings: Abnormal Labs 09/27/20 09/27/20 09/27/20 12:47 12:47 12:47 WBC 11.3 H RDW 15.7 H Baso # (Auto) 0.2 H Seg Neutrophils % 75.6 H Seg Neutrophils # 8.5 H D-Dimer 445.09 H Sodium 132 L Potassium 5.6 H Chloride 92.7 L BUN 22 H Glucose 254 H Ammonia Lactate Dehydrogenase 221 H C-Reactive Protein 10.10 H NT-Pro-B Natriuret Pep 1392 H Albumin 09/27/20 09/28/20 09/28/20 12:47 05:59 05:59 WBC RDW 15.5 H Baso # (Auto) Seg Neutrophils % 72.0 H Seg Neutrophils # 7.8 H D-Dimer Sodium Potassium 5.2 H Chloride BUN 26 H Glucose 198 H Ammonia 17.0 L Lactate Dehydrogenase C-Reactive Protein NT-Pro-B Natriuret Pep Albumin 3.3 L - Diagnostic Findings Chest x-ray: image reviewed Assessment and Plan 54 y/o female with acute respiratory failure secondary to possible right sided p neumonia vs pulmonary edema with morbid obesity. 1. ABG NOW 2. Lasix 40mg IV x1 now 3. May need bipap therapy given low saturations on HFNC 4. BP control, may need to consider nitropaste and morphine injection to help with dyspnea 5. Weight loss 6. Ok with abx therapy
[2020-09-29] MEDS ORDERED: FUROSEMIDE 40 MG/4 ML INJ IV NR (08:45)
[2020-09-29 10:32] LABS: ABG Base Excess 4.5 mmol/L (-2.0-3.0); ABG HCO3 29.8 mmol/L (20.0-26.0); ABG Methemoglobin 0.6 % (0.0-1.5); ABG Oxygen Saturation 87.2 % (95.0-99.0); ABG PCO2 47.2 mm Hg; ABG PH 7.419 pH Units (7.350-7.450); ABG PO2 53.3 mm Hg (80.0-90.0)
--- NOTE | 2020-09-29 10:57 | Electrocardiograph Report ---
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
[2020-09-29] MEDS: amLODIPine 10 MG TAB PO SCH (12:04)
[2020-09-29] MEDS: ENOXAPARIN 40 MG/0.4 ML INJ SUB-Q SCH (12:05)
[2020-09-29] MEDS: LOSARTAN 25 MG TAB PO SCH (12:05)
[2020-09-29] MEDS: CITALOPRAM 20 MG TAB PO SCH (12:05)
[2020-09-29] MEDS: cefTRIAXone/NS 2 GM/100 ML 2 GM/100 ML BAG IV SCH (12:05)
[2020-09-29] MEDS: DIVALPROEX DR 500 MG TAB PO SCH (12:05)
[2020-09-29] MEDS: AZITHROMYCIN 250 MG TAB PO SCH (12:06)
[2020-09-29] MEDS: CHOLECALCIFEROL (VIT D3) 1000 UNIT (25 mcg) TAB PO SCH (12:06)
[2020-09-29] MEDS: ASCORBIC ACID 500 MG TAB PO SCH (12:06)
[2020-09-29] MEDS: ZINC SULFATE 220 MG CAP PO SCH (12:09)
[2020-09-29] MEDS: ZIPRASIDONE 40 MG CAP PO SCH (12:41)
--- NOTE | 2020-09-29 14:56 | Progress Note ---
Assessment and Plan Assessment and plan: Advance Directives: Yes (Full code) VTE prophylaxis?: Chemical Plan of care discussed with patient/family: Yes - Patient Problems (1) Acute respiratory failure with hypoxia Current Visit: Yes Status: Acute Plan to address problem: Patient on high flow nasal cannula oxygen 40 L/min at 100% FiO2 IV Decadron initiated, will maintain at this time even if Covid negative IV antibiotics in the form of Zithromax and ceftriaxone initiated CTA chest ordered, rule out pulmonary embolism Pulmonary following Lasix 40 IV x 1 ordered. (2) Pneumonia Current Visit: Yes Status: Acute Plan to address problem: Admission chest x-ray: Multifocal patchy infiltrates appreciated official read per radiology Possible bacterial pneumonia Patient initiated on IV Zithromax and IV Rocephin Covid 19 PCR test negative (3) Suspected COVID-19 virus infection Current Visit: Yes Status: Acute Plan to address problem: Covid test pending Patient initiated on IV Decadron, IV zithromax, IV rocephin ID following. (4) Schizophrenia Current Visit: No Status: Chronic Qualifiers: Schizophrenia type: unspecified Qualified Code(s): F20.9 - Schizophrenia, unspecified Plan to address problem: Continue Geodon and Depakote (5) Hyponatremia Current Visit: Yes Status: Acute Plan to address problem: Normal saline for about 10 hours (6) Hyperkalemia Current Visit: Yes Status: Acute Plan to address problem: Treated (7) DVT prophylaxis Current Visit: Yes Status: Acute Plan to address problem: On Lovenox and GI prophylaxis 09/28/2020: Pending COVID-19 test. Patient states that she did get Covid vaccine. She is currently on high flow nasal cannula. Titrate off oxygen as patient tolerates. Pulmonary consult placed. 09/29/2020: COVID test negative. Bilateral insterstial edema noted on cxr, lasix 40 IV x 1 per pulm direction. CTA chest ordered to R/o PE. Last sat 100% per notes. Will order PT for evaluation of weakness. History Interval history: Resting comfortably on a.m. encounter. Hospitalist Physical - Constitutional Vitals: Temp Pulse Resp BP Pulse Ox 98.2 F 65 11 L 149/80 100 09/29/20 12:11 09/29/20 14:01 09/29/20 14:01 09/29/20 14:01 09/29/20 14:01 General appearance: Present: no acute distress, well-nourished HEART Score - HEART Score Risk factors: 1-2 risk factors Troponin: Troponin T 0.012 ng/mL (0.00-0.029) 09/27/20 12:47 Troponin: < normal limit - Critical Actions Critical Actions: 0-3 pts:0.9-1.7%risk of adverse cardiac event.Candidate for discharge Results - Labs CBC & Chem 7: 09/28/20 05:59 09/28/20 05:59 Labs: Laboratory Last Values WBC 10.8 K/mm3 (4.5-11.0) 09/28/20 05:59 RBC 3.67 M/mm3 (3.65-5.03) 09/28/20 05:59 Hgb 10.9 gm/dl (10.1-14.3) 09/28/20 05:59 Hct 32.9 % (30.3-42.9) 09/28/20 05:59 MCV 90 fl (79-97) 09/28/20 05:59 MCH 30 pg (28-32) 09/28/20 05:59 MCHC 33 % (30-34) 09/28/20 05:59 RDW 15.5 % (13.2-15.2) H 09/28/20 05:59 Plt Count 252 K/mm3 (140-440) 09/28/20 05:59 Lymph % (Auto) 21.2 % (13.4-35.0) 09/28/20 05:59 [place] % (Auto) 5.6 % (0.0-7.3) 09/28/20 05:59 Eos % (Auto) 0.5 % (0.0-4.3) 09/28/20 05:59 Baso % (Auto) 0.7 % (0.0-1.8) 09/28/20 05:59 Lymph # (Auto) 2.3 K/mm3 (1.2-5.4) 09/28/20 05:59 [place] # (Auto) 0.6 K/mm3 (0.0-0.8) 09/28/20 05:59 Eos # (Auto) 0.0 K/mm3 (0.0-0.4) 09/28/20 05:59 Baso # (Auto) 0.1 K/mm3 (0.0-0.1) 09/28/20 05:59 Seg Neutrophils % 72.0 % (40.0-70.0) H 09/28/20 05:59 Seg Neutrophils # 7.8 K/mm3 (1.8-7.7) H 09/28/20 05:59 PT 13.9 Sec. (12.2-14.9) 09/27/20 12:47 INR 1.01 (0.87-1.13) 09/27/20 12:47 APTT 26.6 Sec. (24.2-36.6) 09/27/20 12:47 D-Dimer 445.09 ng/mlDDU (0-234) H 09/27/20 12:47 ABG pH 7.419 pH Units (7.350-7.450) 09/29/20 09:44 ABG pCO2 47.2 mm Hg 09/29/20 09:44 ABG pO2 53.3 mm Hg (80.0-90.0) L 09/29/20 09:44 ABG HCO3 29.8 mmol/L (20.0-26.0) H 09/29/20 09:44 ABG O2 Saturation 87.2 % (95.0-99.0) L 09/29/20 09:44 ABG O2 Content 16.6 (0.0-44) 09/29/20 09:44 ABG Base Excess 4.5 mmol/L (-2.0-3.0) H 09/29/20 09:44 ABG Hemoglobin 13.8 gm/dl (12.0-16.0) 09/29/20 09:44 ABG Carboxyhemoglobin 1.3 % (0.0-5.0) 09/29/20 09:44 ABG Methemoglobin 0.6 % (0.0-1.5) 09/29/20 09:44 Oxyhemoglobin 85.5 % (95.0-99.0) L 09/29/20 09:44 FiO2 100 % 09/29/20 09:44 Sodium 138 mmol/L (137-145) 09/28/20 05:59 Potassium 5.2 mmol/L (3.6-5.0) H 09/28/20 05:59 Chloride 98.3 mmol/L (98-107) 09/28/20 05:59 Carbon Dioxide 30 mmol/L (22-30) 09/28/20 05:59 Anion Gap 15 mmol/L 09/28/20 05:59 BUN 26 mg/dL (7-17) H 09/28/20 05:59 Creatinine 0.9 mg/dL (0.6-1.2) 09/28/20 05:59 Estimated GFR > 60 ml/min 09/28/20 05:59 BUN/Creatinine Ratio 29 % 09/28/20 05:59 Glucose 198 mg/dL (65-100) H 09/28/20 05:59 Lactic Acid 1.20 mmol/L (0.7-2.0) 09/27/20 13:43 Calcium 8.5 mg/dL (8.4-10.2) 09/28/20 05:59 Ferritin 142.8 ng/mL (10.0-200.0) 09/27/20 12:47 Total Bilirubin 0.30 mg/dL (0.1-1.2) 09/28/20 05:59 AST 14 units/L (5-40) 09/28/20 05:59 ALT 8 units/L (7-56) 09/28/20 05:59 Alkaline Phosphatase 74 units/L (35-129) 09/28/20 05:59 Ammonia 17.0 umol/L (25-60) L 09/27/20 12:47 Lactate Dehydrogenase 221 units/L (91-180) H 09/27/20 12:47 Troponin T 0.012 ng/mL (0.00-0.029) 09/27/20 12:47 C-Reactive Protein 10.10 mg/dL (0.00-1.30) H 09/27/20 12:47 NT-Pro-B Natriuret Pep 1392 pg/mL (0-900) H 09/27/20 12:47 Total Protein 6.7 g/dL (6.3-8.2) 09/28/20 05:59 Albumin 3.3 g/dL (3.9-5) L 09/28/20 05:59 Albumin/Globulin Ratio 1.0 % 09/28/20 05:59 Procalcitonin < 0.05 ng/mL (<0.15) 09/27/20 12:47 TSH 1.760 mlU/mL (0.270-4.200) 09/27/20 12:47 Plasma/Serum Alcohol < 0.01 % (0-0.07) 09/27/20 12:47 Coronavirus (PCR) Negative (Negative) 09/27/20 Unknown Microbiology: Microbiology 09/27/20 13:43 Peripheral/Venous Blood Culture - Preliminary NO GROWTH AFTER 48 HOURS 09/27/20 13:47 Peripheral/Venous Blood Culture - Preliminary NO GROWTH AFTER 48 HOURS Active Medications - Current Medications Current Medications: Generic Name Dose Route Start Last Admin Trade Name Freq PRN Reason Stop Dose Admin Acetaminophen 650 mg 09/27/20 21:27 Acetaminophen 325 Mg Tab PO Q4H PRN Pain MILD(1-3)/Fever >100.5/CAM Amlodipine Besylate 10 mg 09/29/20 10:00 09/29/20 12:04 Amlodipine 10 Mg Tab PO 10 mg DAILY BHASKAR Administration Ascorbic Acid 1,000 mg 09/28/20 10:00 09/29/20 12:06 Ascorbic Acid 500 Mg Tab PO 1,000 mg BID BHASKAR Administration Azithromycin 500 mg 09/29/20 10:00 09/29/20 12:06 Azithromycin 250 Mg Tab PO 10/01/20 10:01 500 mg Q24H BHASKAR Administration Protocol Cholecalciferol 1,000 unit 09/28/20 10:00 09/29/20 12:06 Cholecalciferol (Vit D3) 1000 Unit (25 Mcg) Tab PO 1,000 unit QDAY BHASKAR Administration Citalopram Hydrobromide 20 mg 09/29/20 10:00 09/29/20 12:05 Citalopram 20 Mg Tab PO 20 mg QDAY BHASKAR Administration Divalproex Sodium 500 mg 09/29/20 10:00 09/29/20 12:[address] 500 Mg Tab PO 500 mg BID BHASKAR Administration Enoxaparin Sodium 40 mg 09/27/20 22:00 09/29/20 12:05 Enoxaparin 40 Mg/0.4 Ml Inj SUB-Q 40 mg QDAY BHASKRA Administration Hydromorphone HCl 0.5 mg 09/27/20 21:27 Hydromorphone 1 Mg/1 Ml Inj IV Q3H PRN Pain , Severe (7-10) Sodium Chloride 1,000 mls @ 100 mls/hr 09/27/20 21:30 Nacl 0.9% 1000 Ml IV DIRECT BHASKAR Ceftriaxone Sodium 2 gm in 100 mls @ 200 mls/hr 09/28/20 15:00 09/29/20 12:05 Rocephin/Ns 2 Gm/100 Ml IV 10/02/20 10:29 200 mls/hr Q24HR BHASKAR Administration Protocol Labetalol HCl 10 mg 09/29/20 09:00 Labetalol 20 Mg/4 Ml Inj IV Q4HR PRN SBP>160 Losartan Potassium 25 mg 09/29/20 10:00 09/29/20 12:05 Losartan 25 Mg Tab PO 25 mg QDAY BHASKAR Administration Morphine Sulfate 2 mg 09/27/20 21:27 Morphine 2 Mg/1 Ml Inj IV Q4H PRN Pain, Moderate (4-6) Ondansetron HCl 4 mg 09/27/20 21:27 Ondansetron 4 Mg/2 Ml Inj IV Q8H PRN Nausea And Vomiting Sodium Chloride 10 ml 09/27/20 22:00 09/29/20 12:06 Sodium Chloride 0.9% 10 Ml Flush Syringe IV 10 ml BID BHASKAR Administration Sodium Chloride 10 ml 09/27/20 21:27 Sodium Chloride 0.9% 10 Ml Flush Syringe IV PRN PRN LINE FLUSH Zinc Sulfate 220 mg 09/28/20 10:00 09/29/20 12:09 Zinc Sulfate 220 Mg Cap PO Not Given BID BHASKAR Ziprasidone 40 mg 09/29/20 10:00 09/29/20 12:41 Ziprasidone 40 Mg Cap PO 40 mg DAILY BHASKAR Administration
--- NOTE | 2020-09-30 01:12 | Cat Scan Report ---
CTA CHEST WITH IV CONTRAST INDICATION: Respiratory Distress. TECHNIQUE: Axial CT images were obtained through the chest after injection of 100 cc IV contrast. 3 plane MIP re constructions were produced. All CT scans at this location are performed using CT dose reduction for ALARA by means of automated exposure control. COMPARISON: None available. FINDINGS: PULMONARY ARTERIES: No pulmonary emboli. THORACIC AORTA: No acute abnormality. HEART: Normal. CORONARY ARTERIES: No significant calcification. PLEURA: No pleural effusion. No pneumothorax. LYMPH NODES: No significant adenopathy. LUNGS: Moderate bilateral streaky groundglass parenchymal disease characteristic for Covid pneumonia ADDITIONAL FINDINGS: None. UPPER ABDOMEN: Gallbladder surgically absent. Hepatic Steatosis SKELETAL STRUCTURES: No significant osseous abnormality. IMPRESSION: 1. No CT evidence for pulmonary embolism. 2. Bilateral Covid pneumonia Signer Name: Kanu Gaitan MD Signed: 09/30/2020 1:07 AM Workstation Name: [id number]
[2020-09-30] MEDS: DIVALPROEX DR 500 MG TAB PO SCH ×3 (01:13→23:49)
[2020-09-30] MEDS: ASCORBIC ACID 500 MG TAB PO SCH ×2 (01:13→10:36)
[2020-09-30] MEDS: ZINC SULFATE 220 MG CAP PO SCH ×2 (01:13→10:37)
[2020-09-30 07:14] LABS: C-Reactive Protein 6.6 mg/dL (0.00-1.30)
--- NOTE | 2020-09-30 08:35 | XRay Report ---
XR chest 1V ap INDICATION / CLINICAL INFORMATION: covid 19 pna. COMPARISON: 09/27/2020 FINDINGS: SUPPORT DEVICES: None HEART /PULMONARY VASCULATURE: Unchanged. LUNGS / PLEURA: Slight improvement in bilateral airspace opacities, particularly within the right upp er and midlung. No pneumothorax. IMPRESSION: Slight improvement in pulmonary airspace opacities. Signer Name: Vik Ramirez MD Signed: 09/30/2020 8:31 AM Workstation Name: [id number]
[2020-09-30] MEDS: ZIPRASIDONE 40 MG CAP PO SCH (10:35)
[2020-09-30] MEDS: amLODIPine 10 MG TAB PO SCH (10:35)
[2020-09-30] MEDS: CHOLECALCIFEROL (VIT D3) 1000 UNIT (25 mcg) TAB PO SCH (10:35)
[2020-09-30] MEDS: CITALOPRAM 20 MG TAB PO SCH (10:36)
[2020-09-30] MEDS: ENOXAPARIN 40 MG/0.4 ML INJ SUB-Q SCH (10:36)
[2020-09-30] MEDS: LOSARTAN 25 MG TAB PO SCH (10:36)
--- NOTE | 2020-09-30 12:26 | Progress Note ---
Assessment and Plan 54 y/o female with acute respiratory failure secondary to possible right sided pneumonia vs pulmonary edema with morbid obesity. 09/30/20: Continue diuretic therapy as this is helping with oxygen requirement. Keep bipap available PRN. Continue to wean for sats >88%. BP control per primary. 1. ABG NOW 2. Lasix 40mg IV x1 now 3. May need bipap therapy given low saturations on HFNC 4. BP control, may need to consider nitropaste and morphine injection to help with dyspnea 5. Weight loss 6. Ok with abx therapy Subjective Date of service: 09/30/20 Interval history: Weaned to [place] 8 liters with good sats. Objective Vital Signs - 12hr 09/30/20 09/30/20 09/30/20 02:14 05:53 08:35 O2 Sat by Pulse 94 98 96 Oximetry Constitutional: no acute distress, alert Eyes: non-icteric Neck: supple, other (large in circumference) Effort: mildly labored Ascultation: Bilateral: rales Percussion: Bilateral: not dull Cardiovascular: regular rate and rhythm Gastrointestinal: other (obese) CBC and BMP: 09/28/20 05:59 09/28/20 05:59 ABG, PT/INR, D-dimer: ABG ABG pH 7.419 pH Units (7.350-7.450) 09/29/20 09:44 ABG pCO2 47.2 mm Hg 09/29/20 09:44 ABG pO2 53.3 mm Hg (80.0-90.0) L 09/29/20 09:44 ABG O2 Saturation 87.2 % (95.0-99.0) L 09/29/20 09:44 PT/INR, D-dimer PT 13.9 Sec. (12.2-14.9) 09/27/20 12:47 INR 1.01 (0.87-1.13) 09/27/20 12:47 D-Dimer 1726.31 ng/mlDDU (0-234) H 09/30/20 04:31 Abnormal lab findings: Abnormal Labs 09/27/20 09/27/20 09/27/20 12:47 12:47 12:47 WBC 11.3 H RDW 15.7 H Baso # (Auto) 0.2 H Seg Neutrophils % 75.6 H Seg Neutrophils # 8.5 H D-Dimer 445.09 H ABG pO2 ABG HCO3 ABG O2 Saturation ABG Base Excess Oxyhemoglobin Sodium 132 L Potassium 5.6 H Chloride 92.7 L BUN 22 H Glucose 254 H POC Glucose Ammonia Lactate Dehydrogenase 221 H C-Reactive Protein 10.10 H NT-Pro-B Natriuret Pep 1392 H Albumin 09/27/20 09/28/20 09/28/20 12:47 05:59 05:59 WBC RDW 15.5 H Baso # (Auto) Seg Neutrophils % 72.0 H Seg Neutrophils # 7.8 H D-Dimer ABG pO2 ABG HCO3 ABG O2 Saturation ABG Base Excess Oxyhemoglobin Sodium Potassium 5.2 H Chloride BUN 26 H Glucose 198 H POC Glucose Ammonia 17.0 L Lactate Dehydrogenase C-Reactive Protein NT-Pro-B Natriuret Pep Albumin 3.3 L 09/29/20 09/30/20 09/30/20 09:44 04:31 04:31 WBC RDW Baso # (Auto) Seg Neutrophils % Seg Neutrophils # D-Dimer 1726.31 H ABG pO2 53.3 L ABG HCO3 29.8 H ABG O2 Saturation 87.2 L ABG Base Excess 4.5 H Oxyhemoglobin 85.5 L Sodium Potassium Chloride BUN Glucose POC Glucose Ammonia Lactate Dehydrogenase 392 H C-Reactive Protein 6.60 H NT-Pro-B Natriuret Pep Albumin 09/30/20 09/30/20 07:55 11:21 WBC RDW Baso # (Auto) Seg Neutrophils % Seg Neutrophils # D-Dimer ABG pO2 ABG HCO3 ABG O2 Saturation ABG Base Excess Oxyhemoglobin Sodium Potassium Chloride BUN Glucose POC Glucose 319 H 324 H Ammonia Lactate Dehydrogenase C-Reactive Protein NT-Pro-B Natriuret Pep Albumin
[2020-09-30] MEDS: AZITHROMYCIN 250 MG TAB PO SCH (12:58)
--- NOTE | 2020-09-30 18:11 | Progress Note ---
Assessment and Plan Assessment and plan: Advance Directives: Yes (Full code) VTE prophylaxis?: Chemical Plan of care discussed with patient/family: Yes --Acute respiratory failure with hypoxia/on high flow nasal cannula oxygen Current Visit: Yes Status: Acute Patient on high flow nasal cannula oxygen 15 L/min at 100% FiO2 COVID-19 negative, continue supportive care, wean as tolerated Pulmonary following, continue empiric antibiotics CTA chest negative for PE Continue supportive care --Pneumonia/community-acquired Current Visit: Yes Status: Acute Admission chest x-ray: Multifocal patchy infiltrates appreciated official read p er radiology Possible bacterial pneumonia Patient initiated on IV Zithromax and IV Rocephin Covid 19 PCR test negative --Negative COVID-19 test Current Visit: Yes Status: Acute Remy PCR test negative --Hyperglycemia/type 2 diabetes mellitus; Current Visit: Yes Status: Acute Accu-Chek, sliding scale coverage, ADA diet Check A1c, long-acting insulin as needed Diabetic education, nutrition education prior to discharge --History of schizophrenia Current Visit: No Status: Chronic Continue Geodon and Depakote Psych evaluation if needed --Hyponatremia/present on admission Current Visit: Yes Status: Acute Resolved , closely monitor electrolytes Gentle hydration -- Hyperkalemia/resolved Current Visit: Yes Status: Acute Monitor electrolytes --Obesity; BMI 36.5; Current Visit: No Status: Chronic Diet modification, lifestyle changes, exercise as tolerated Weight reduction when medically stable --DVT prophylaxis Current Visit: Yes Status: Acute Plan to address problem: On Lovenox and GI prophylaxis [employer] recommendations noted and appreciated We will closely monitor the patient and adjust the management as needed Plan of care reviewed with the patient and her nurse Daily Hospital course: 09/28/2020: Pending COVID-19 test. Patient states that she did get Covid vaccine. She is currently on high flow nasal cannula. Titrate off oxygen as patient tolerates. Pulmonary consult placed. 09/29/2020: COVID test negative. Bilateral insterstial edema noted on cxr, lasix 40 IV x 1 per pulm direction. CTA chest ordered to R/o PE. Last sat 100% per notes. Will order PT for evaluation of weakness. 09/30/2020; uncontrolled blood sugars, Accu-Chek sliding scale coverage, ADA diet, long-acting insulin Check A1c, diabetic education, nutrition education prior to discharge History Interval history: I have seen and examined the patient at the bedside Patient's chart and medications reviewed Patient complains of generalized weakness Continues to be on high flow oxygen 15 L Vital signs noted Hospitalist Physical - Constitutional Vitals: Temp Pulse Resp BP Pulse Ox 98.0 F 77 14 119/81 97 09/29/20 14:36 09/30/20 00:11 09/30/20 00:11 09/30/20 00:11 09/30/20 13:06 General appearance: Present: no acute distress, well-nourished, obese - EENT Eyes: Present: PERRL, EOM intact - Neck Neck: Present: supple, normal ROM - Respiratory Respiratory effort: normal Respiratory: bilateral: diminished, rhonchi, negative: rales, wheezing - Cardiovascular Rhythm: regular Heart Sounds: Present: S1 & S2 - Extremities Extremities: no ischemia, No edema - Abdominal General gastrointestinal: soft, non-tender, non-distended, normal bowel sounds - Integumentary Integumentary: Present: clear, warm - Psychiatric Psychiatric: appropriate mood/affect, cooperative - Neurologic Neurologic: CNII-XII intact, moves all extremities HEART Score - HEART Score Risk factors: 1-2 risk factors Troponin: Troponin T 0.012 ng/mL (0.00-0.029) 09/27/20 12:47 Troponin: < normal limit - Critical Actions Critical Actions: 0-3 pts:0.9-1.7%risk of adverse cardiac event.Candidate for discharge Results - Labs CBC & Chem 7: 09/28/20 05:59 09/28/20 05:59 Labs: Laboratory Last Values WBC 10.8 K/mm3 (4.5-11.0) 09/28/20 05:59 RBC 3.67 M/mm3 (3.65-5.03) 09/28/20 05:59 Hgb 10.9 gm/dl (10.1-14.3) 09/28/20 05:59 Hct 32.9 % (30.3-42.9) 09/28/20 05:59 MCV 90 fl (79-97) 09/28/20 05:59 MCH 30 pg (28-32) 09/28/20 05:59 MCHC 33 % (30-34) 09/28/20 05:59 RDW 15.5 % (13.2-15.2) H 09/28/20 05:59 Plt Count 252 K/mm3 (140-440) 09/28/20 05:59 Lymph % (Auto) 21.2 % (13.4-35.0) 09/28/20 05:59 [place] % (Auto) 5.6 % (0.0-7.3) 09/28/20 05:59 Eos % (Auto) 0.5 % (0.0-4.3) 09/28/20 05:59 Baso % (Auto) 0.7 % (0.0-1.8) 09/28/20 05:59 Lymph # (Auto) 2.3 K/mm3 (1.2-5.4) 09/28/20 05:59 [place] # (Auto) 0.6 K/mm3 (0.0-0.8) 09/28/20 05:59 Eos # (Auto) 0.0 K/mm3 (0.0-0.4) 09/28/20 05:59 Baso # (Auto) 0.1 K/mm3 (0.0-0.1) 09/28/20 05:59 Seg Neutrophils % 72.0 % (40.0-70.0) H 09/28/20 05:59 Seg Neutrophils # 7.8 K/mm3 (1.8-7.7) H 09/28/20 05:59 PT 13.9 Sec. (12.2-14.9) 09/27/20 12:47 INR 1.01 (0.87-1.13) 09/27/20 12:47 APTT 26.6 Sec. (24.2-36.6) 09/27/20 12:47 D-Dimer 1726.31 ng/mlDDU (0-234) H 09/30/20 04:31 ABG pH 7.419 pH Units (7.350-7.450) 09/29/20 09:44 ABG pCO2 47.2 mm Hg 09/29/20 09:44 ABG pO2 53.3 mm Hg (80.0-90.0) L 09/29/20 09:44 ABG HCO3 29.8 mmol/L (20.0-26.0) H 09/29/20 09:44 ABG O2 Saturation 87.2 % (95.0-99.0) L 09/29/20 09:44 ABG O2 Content 16.6 (0.0-44) 09/29/20 09:44 ABG Base Excess 4.5 mmol/L (-2.0-3.0) H 09/29/20 09:44 ABG Hemoglobin 13.8 gm/dl (12.0-16.0) 09/29/20 09:44 ABG Carboxyhemoglobin 1.3 % (0.0-5.0) 09/29/20 09:44 ABG Methemoglobin 0.6 % (0.0-1.5) 09/29/20 09:44 Oxyhemoglobin 85.5 % (95.0-99.0) L 09/29/20 09:44 FiO2 100 % 09/29/20 09:44 Sodium 138 mmol/L (137-145) 09/28/20 05:59 Potassium 5.2 mmol/L (3.6-5.0) H 09/28/20 05:59 Chloride 98.3 mmol/L (98-107) 09/28/20 05:59 Carbon Dioxide 30 mmol/L (22-30) 09/28/20 05:59 Anion Gap 15 mmol/L 09/28/20 05:59 BUN 26 mg/dL (7-17) H 09/28/20 05:59 Creatinine 0.9 mg/dL (0.6-1.2) 09/28/20 05:59 Estimated GFR > 60 ml/min 09/28/20 05:59 BUN/Creatinine Ratio 29 % 09/28/20 05:59 Glucose 198 mg/dL (65-100) H 09/28/20 05:59 POC Glucose 303 mg/dL (70-105) H 09/30/20 15:35 Lactic Acid 1.20 mmol/L (0.7-2.0) 09/27/20 13:43 Calcium 8.5 mg/dL (8.4-10.2) 09/28/20 05:59 Ferritin 193.8 ng/mL (10.0-200.0) 09/30/20 04:31 Total Bilirubin 0.30 mg/dL (0.1-1.2) 09/28/20 05:59 AST 14 units/L (5-40) 09/28/20 05:59 ALT 8 units/L (7-56) 09/28/20 05:59 Alkaline Phosphatase 74 units/L (35-129) 09/28/20 05:59 Ammonia 17.0 umol/L (25-60) L 09/27/20 12:47 Lactate Dehydrogenase 392 units/L (91-180) H 09/30/20 04:31 Troponin T 0.012 ng/mL (0.00-0.029) 09/27/20 12:47 C-Reactive Protein 6.60 mg/dL (0.00-1.30) H 09/30/20 04:31 NT-Pro-B Natriuret Pep 1392 pg/mL (0-900) H 09/27/20 12:47 Total Protein 6.7 g/dL (6.3-8.2) 09/28/20 05:59 Albumin 3.3 g/dL (3.9-5) L 09/28/20 05:59 Albumin/Globulin Ratio 1.0 % 09/28/20 05:59 Procalcitonin < 0.05 ng/mL (<0.15) 09/27/20 12:47 TSH 1.760 mlU/mL (0.270-4.200) 09/27/20 12:47 Plasma/Serum Alcohol < 0.01 % (0-0.07) 09/27/20 12:47 Coronavirus (PCR) Negative (Negative) 09/27/20 Unknown Microbiology: Microbiology 09/27/20 13:43 Peripheral/Venous Blood Culture - Preliminary NO GROWTH AFTER 72 HOURS 09/27/20 13:47 Peripheral/Venous Blood Culture - Preliminary NO GROWTH AFTER 72 HOURS Harry/IV: Voiding Method External Female Catheter Active Medications - Current Medications Current Medications: Generic Name Dose Route Start Last Admin Trade Name Freq PRN Reason Stop Dose Admin Acetaminophen 650 mg 09/27/20 21:27 Acetaminophen 325 Mg Tab PO Q4H PRN Pain MILD(1-3)/Fever >100.5/CAM Amlodipine Besylate 10 mg 09/29/20 10:00 09/30/20 10:35 Amlodipine 10 Mg Tab PO 10 mg DAILY BHASKAR Administration Azithromycin 500 mg 09/29/20 10:00 09/30/20 12:58 Azithromycin 250 Mg Tab PO 10/01/20 10:01 500 mg Q24H BHASKAR Administration Protocol Citalopram Hydrobromide 20 mg 09/29/20 10:00 09/30/20 10:36 Citalopram 20 Mg Tab PO 20 mg QDAY BHASKAR Administration Divalproex Sodium 500 mg 09/29/20 10:00 09/30/20 10:[address] 500 Mg Tab PO 500 mg BID BHASKAR Administration Enoxaparin Sodium 40 mg 09/27/20 22:00 09/30/20 10:36 Enoxaparin 40 Mg/0.4 Ml Inj SUB-Q 40 mg QDAY BHASKAR Administration Hydromorphone HCl 0.5 mg 09/27/20 21:27 Hydromorphone 1 Mg/1 Ml Inj IV Q3H PRN Pain , Severe (7-10) Sodium Chloride 1,000 mls @ 100 mls/hr 09/27/20 21:30 Nacl 0.9% 1000 Ml IV DIRECT BHASKAR Ceftriaxone Sodium 2 gm in 100 mls @ 200 mls/hr 09/28/20 15:00 09/29/20 12:05 Rocephin/Ns 2 Gm/100 Ml IV 10/02/20 10:29 200 mls/hr Q24HR BHASKAR Administration Protocol Insulin Human Isoph/Insulin Regular 10 unit 10/01/20 08:00 Insulin Nph/Regular 70/30 Inj SUB-Q BIDDIAB BHASKAR Insulin Human Lispro 0 unit 09/30/20 22:00 Insulin Lispro 100 Unit/Ml SUB-Q [facility] Protocol Labetalol HCl 10 mg 09/29/20 09:00 Labetalol 20 Mg/4 Ml Inj IV Q4HR PRN SBP>160 Losartan Potassium 25 mg 09/29/20 10:00 09/30/20 10:36 Losartan 25 Mg Tab PO 25 mg QDAY BHASKAR Administration Morphine Sulfate 2 mg 09/27/20 21:27 Morphine 2 Mg/1 Ml Inj IV Q4H PRN Pain, Moderate (4-6) Ondansetron HCl 4 mg 09/27/20 21:27 Ondansetron 4 Mg/2 Ml Inj IV Q8H PRN Nausea And Vomiting Sodium Chloride 10 ml 09/27/20 22:00 09/30/20 10:36 Sodium Chloride 0.9% 10 Ml Flush Syringe IV 10 ml BID BHASKAR Administration Sodium Chloride 10 ml 08/14/21 21:27 Sodium Chloride 0.9% 10 Ml Flush Syringe IV PRN PRN LINE FLUSH Ziprasidone 40 mg 09/29/20 10:00 09/30/20 10:35 Ziprasidone 40 Mg Cap PO 40 mg DAILY BHASKAR Administration
[2020-09-30] MEDS ORDERED: INSULIN NPH/REGULAR 70/30 INJ SUB-Q ONE (19:00)
[2020-09-30] MEDS: INSULIN LISPRO 100 UNIT/ML SUB-Q SCH (23:50)
--- NOTE | 2020-10-01 07:04 | Progress Note ---
Assessment and Plan 54 y/o female with acute respiratory failure secondary to possible right sided pneumonia vs pulmonary edema with morbid obesity. 10/01/20: Suggest obtaining echo given elevated BNP on admission. Will give another dose of lasix today. Wean FiO2 for sats >88%. Can likely stop abx therapy as well. Will repeat CXR today to see improvement in opacities, if so, most likely related to edema. 09/30/20: Continue diuretic therapy as this is helping with oxygen requirement. Keep bipap available PRN. Continue to wean for sats >88%. BP control per primary. 1. ABG NOW 2. Lasix 40mg IV x1 now 3. May need bipap therapy given low saturations on HFNC 4. BP control, may need to consider nitropaste and morphine injection to help with dyspnea 5. Weight loss 6. Ok with abx therapy Subjective Date of service: 10/01/20 Interval history: No acute events. Awake and alert. Asking about going home today but still on 8 liter salter. Lasix has fallen off APR. BP better but still elevated. Objective Vital Signs - 12hr 09/30/20 09/30/20 09/30/20 19:35 20:00 23:28 Temperature 98.3 F 98.2 F Pulse Rate 65 77 Respiratory 18 18 Rate Blood Pressure 146/46 165/74 O2 Sat by Pulse 94 94 94 Oximetry 10/01/20 10/01/20 04:29 04:30 Temperature 98.0 F Pulse Rate 68 Respiratory 18 Rate Blood Pressure 143/63 O2 Sat by Pulse 89 96 Oximetry Constitutional: no acute distress, alert Eyes: non-icteric Neck: supple, other (large in circumference) Effort: mildly labored Ascultation: Bilateral: rales Percussion: Bilateral: not dull Cardiovascular: regular rate and rhythm Gastrointestinal: other (obese) CBC and BMP: 09/28/20 05:59 09/28/20 05:59 ABG, PT/INR, D-dimer: ABG ABG pH 7.419 pH Units (7.350-7.450) 09/29/20 09:44 ABG pCO2 47.2 mm Hg 09/29/20 09:44 ABG pO2 53.3 mm Hg (80.0-90.0) L 09/29/20 09:44 ABG O2 Saturation 87.2 % (95.0-99.0) L 09/29/20 09:44 PT/INR, D-dimer PT 13.9 Sec. (12.2-14.9) 09/27/20 12:47 INR 1.01 (0.87-1.13) 09/27/20 12:47 D-Dimer 1726.31 ng/mlDDU (0-234) H 09/30/20 04:31 Abnormal lab findings: Abnormal Labs 09/27/20 09/27/20 09/27/20 12:47 12:47 12:47 WBC 11.3 H RDW 15.7 H Baso # (Auto) 0.2 H Seg Neutrophils % 75.6 H Seg Neutrophils # 8.5 H D-Dimer 445.09 H ABG pO2 ABG HCO3 ABG O2 Saturation ABG Base Excess Oxyhemoglobin Sodium 132 L Potassium 5.6 H Chloride 92.7 L BUN 22 H Glucose 254 H POC Glucose Hemoglobin A1c Ammonia Lactate Dehydrogenase 221 H C-Reactive Protein 10.10 H NT-Pro-B Natriuret Pep 1392 H Albumin 09/27/20 09/28/20 09/28/20 12:47 05:59 05:59 WBC RDW 15.5 H Baso # (Auto) Seg Neutrophils % 72.0 H Seg Neutrophils # 7.8 H D-Dimer ABG pO2 ABG HCO3 ABG O2 Saturation ABG Base Excess Oxyhemoglobin Sodium Potassium 5.2 H Chloride BUN 26 H Glucose 198 H POC Glucose Hemoglobin A1c Ammonia 17.0 L Lactate Dehydrogenase C-Reactive Protein NT-Pro-B Natriuret Pep Albumin 3.3 L 09/29/20 09/30/20 09/30/20 09:44 04:31 04:31 WBC RDW Baso # (Auto) Seg Neutrophils % Seg Neutrophils # D-Dimer 1726.31 H ABG pO2 53.3 L ABG HCO3 29.8 H ABG O2 Saturation 87.2 L ABG Base Excess 4.5 H Oxyhemoglobin 85.5 L Sodium Potassium Chloride BUN Glucose POC Glucose Hemoglobin A1c Ammonia Lactate Dehydrogenase 392 H C-Reactive Protein 6.60 H NT-Pro-B Natriuret Pep Albumin 09/30/20 09/30/20 09/30/20 07:55 11:21 15:35 WBC RDW Baso # (Auto) Seg Neutrophils % Seg Neutrophils # D-Dimer ABG pO2 ABG HCO3 ABG O2 Saturation ABG Base Excess Oxyhemoglobin Sodium Potassium Chloride BUN Glucose POC Glucose 319 H 324 H 303 H Hemoglobin A1c Ammonia Lactate Dehydrogenase C-Reactive Protein NT-Pro-B Natriuret Pep Albumin 09/30/20 10/01/20 20:17 04:11 WBC RDW Baso # (Auto) Seg Neutrophils % Seg Neutrophils # D-Dimer ABG pO2 ABG HCO3 ABG O2 Saturation ABG Base Excess Oxyhemoglobin Sodium Potassium Chloride BUN Glucose POC Glucose 248 H Hemoglobin A1c 10.5 H Ammonia Lactate Dehydrogenase C-Reactive Protein NT-Pro-B Natriuret Pep Albumin
[2020-10-01] MEDS ORDERED: FUROSEMIDE 40 MG/4 ML INJ IV ONE (08:00)
[2020-10-01] MEDS: INSULIN NPH/REGULAR 70/30 INJ SUB-Q SCH ×2 (09:56→17:43)
[2020-10-01] MEDS: INSULIN LISPRO 100 UNIT/ML SUB-Q SCH ×4 (09:56→22:46)
[2020-10-01] MEDS: ZIPRASIDONE 40 MG CAP PO SCH (10:17)
[2020-10-01] MEDS: cefTRIAXone/NS 2 GM/100 ML 2 GM/100 ML BAG IV SCH ×3 (10:17→22:40)
[2020-10-01] MEDS: amLODIPine 10 MG TAB PO SCH (10:17)
[2020-10-01] MEDS: CITALOPRAM 20 MG TAB PO SCH (10:18)
[2020-10-01] MEDS: LOSARTAN 25 MG TAB PO SCH (10:18)
[2020-10-01] MEDS: DIVALPROEX DR 500 MG TAB PO SCH ×2 (10:18→22:46)
--- NOTE | 2020-10-01 10:38 | Progress Note ---
Assessment and Plan Assessment and plan: --Acute respiratory failure with hypoxia/on high flow nasal cannula oxygen Current Visit: Yes Status: Acute Patient on high flow nasal cannula oxygen 15 L/min at 100% FiO2 Today O2 requirements improved to 8 L nasal cannula saturating 97% Continue to titrate , home O2 evaluation upon discharge COVID-19 negative, continue antibiotics CTA chest negative for PE Continue supportive care --Pneumonia multifocal/community-acquired Current Visit: Yes Status: Acute chest x-ray: Multifocal patchy infiltrates appreciated official read per radiology Patient initiated on IV Zithromax and IV Rocephin Covid 19 PCR test negative --Negative COVID-19 test Current Visit: Yes Status: Acute Remy PCR test negative --Hyperglycemia/type 2 diabetes mellitus; Current Visit: Yes Status: Acute Accu-Chek, sliding scale coverage, ADA diet Check A1c, long-acting insulin as needed Diabetic education, nutrition education prior to discharge --History of schizophrenia Current Visit: No Status: Chronic Continue Geodon and Depakote Psych evaluation if needed --Hyponatremia/present on admission Current Visit: Yes Status: Acute Resolved , closely monitor electrolytes Gentle hydration -- Hyperkalemia/resolved Current Visit: Yes Status: Acute Monitor electrolytes --Obesity; BMI 39.4 Current Visit: No Status: Chronic Diet modification, lifestyle changes, exercise as tolerated Weight reduction when medically stable --DVT prophylaxis Current Visit: Yes Status: Acute Plan to address problem: On Lovenox and GI prophylaxis Bias Cutter Helper recommendations noted and appreciated We will closely monitor the patient and adjust the management as needed Plan of care reviewed with the patient and her nurse Daily Hospital course: 09/28/2020: Pending COVID-19 test. Patient states that she did get Covid vaccine. She is currently on high flow nasal cannula. Titrate off oxygen as patient tolerates. Pulmonary consult placed. 09/29/2020: COVID test negative. Bilateral insterstial edema noted on cxr, lasix 40 IV x 1 per pulm direction. CTA chest ordered to R/o PE. Last sat 100% per notes. Will order PT for evaluation of weakness. 09/30/2020; uncontrolled blood sugars, Accu-Chek sliding scale coverage, ADA diet, long-acting insulin Check A1c, diabetic education, nutrition education prior to discharge 10/01/2020; continue to wean oxygen, continue antibiotics I discussed with [place] physician Dr. Castillo at [phone] and updated patient's condition Oxygen requirement and discharge planning History Interval history: I have seen and examined the patient at the bedside this morning Patient's chart and medications reviewed Patient feels slightly better Oxygen requirements were 15 L yesterday, today came down to 8 L via nasal cannula Vital signs noted Hospitalist Physical - Constitutional Vitals: Temp Pulse Resp BP Pulse Ox 98.9 F 69 20 131/54 98 10/01/20 07:40 10/01/20 07:40 10/01/20 07:40 10/01/20 07:40 10/01/20 08:20 General appearance: Present: no acute distress, well-nourished, obese - EENT Eyes: Present: PERRL, EOM intact - Neck Neck: Present: supple, normal ROM - Respiratory Respiratory effort: normal Respiratory: bilateral: diminished, rhonchi, negative: rales, wheezing - Cardiovascular Rhythm: regular Heart Sounds: Present: S1 & S2 - Extremities Extremities: no ischemia, No edema - Abdominal General gastrointestinal: soft, non-tender, non-distended, normal bowel sounds - Integumentary Integumentary: Present: clear, warm - Psychiatric Psychiatric: appropriate mood/affect, cooperative - Neurologic Neurologic: CNII-XII intact, moves all extremities HEART Score - HEART Score Risk factors: 1-2 risk factors Troponin: Troponin T 0.012 ng/mL (0.00-0.029) 09/27/20 12:47 Troponin: < normal limit - Critical Actions Critical Actions: 0-3 pts:0.9-1.7%risk of adverse cardiac event.Candidate for discharge Results - Labs CBC & Chem 7: 09/28/20 05:59 09/28/20 05:59 Labs: Laboratory Last Values WBC 10.8 K/mm3 (4.5-11.0) 09/28/20 05:59 RBC 3.67 M/mm3 (3.65-5.03) 09/28/20 05:59 Hgb 10.9 gm/dl (10.1-14.3) 09/28/20 05:59 Hct 32.9 % (30.3-42.9) 09/28/20 05:59 MCV 90 fl (79-97) 09/28/20 05:59 MCH 30 pg (28-32) 09/28/20 05:59 MCHC 33 % (30-34) 09/28/20 05:59 RDW 15.5 % (13.2-15.2) H 09/28/20 05:59 Plt Count 252 K/mm3 (140-440) 09/28/20 05:59 Lymph % (Auto) 21.2 % (13.4-35.0) 09/28/20 05:59 Gregory % (Auto) 5.6 % (0.0-7.3) 09/28/20 05:59 Eos % (Auto) 0.5 % (0.0-4.3) 09/28/20 05:59 Baso % (Auto) 0.7 % (0.0-1.8) 09/28/20 05:59 Lymph # (Auto) 2.3 K/mm3 (1.2-5.4) 09/28/20 05:59 Gregory # (Auto) 0.6 K/mm3 (0.0-0.8) 09/28/20 05:59 Eos # (Auto) 0.0 K/mm3 (0.0-0.4) 09/28/20 05:59 Baso # (Auto) 0.1 K/mm3 (0.0-0.1) 09/28/20 05:59 Seg Neutrophils % 72.0 % (40.0-70.0) H 09/28/20 05:59 Seg Neutrophils # 7.8 K/mm3 (1.8-7.7) H 09/28/20 05:59 PT 13.9 Sec. (12.2-14.9) 09/27/20 12:47 INR 1.01 (0.87-1.13) 09/27/20 12:47 APTT 26.6 Sec. (24.2-36.6) 09/27/20 12:47 D-Dimer 1726.31 ng/mlDDU (0-234) H 09/30/20 04:31 ABG pH 7.419 pH Units (7.350-7.450) 09/29/20 09:44 ABG pCO2 47.2 mm Hg 09/29/20 09:44 ABG pO2 53.3 mm Hg (80.0-90.0) L 09/29/20 09:44 ABG HCO3 29.8 mmol/L (20.0-26.0) H 09/29/20 09:44 ABG O2 Saturation 87.2 % (95.0-99.0) L 09/29/20 09:44 ABG O2 Content 16.6 (0.0-44) 09/29/20 09:44 ABG Base Excess 4.5 mmol/L (-2.0-3.0) H 09/29/20 09:44 ABG Hemoglobin 13.8 gm/dl (12.0-16.0) 09/29/20 09:44 ABG Carboxyhemoglobin 1.3 % (0.0-5.0) 09/29/20 09:44 ABG Methemoglobin 0.6 % (0.0-1.5) 09/29/20 09:44 Oxyhemoglobin 85.5 % (95.0-99.0) L 09/29/20 09:44 FiO2 100 % 09/29/20 09:44 Sodium 138 mmol/L (137-145) 09/28/20 05:59 Potassium 5.2 mmol/L (3.6-5.0) H 09/28/20 05:59 Chloride 98.3 mmol/L (98-107) 09/28/20 05:59 Carbon Dioxide 30 mmol/L (22-30) 09/28/20 05:59 Anion Gap 15 mmol/L 09/28/20 05:59 BUN 26 mg/dL (7-17) H 09/28/20 05:59 Creatinine 0.9 mg/dL (0.6-1.2) 09/28/20 05:59 Estimated GFR > 60 ml/min 09/28/20 05:59 BUN/Creatinine Ratio 29 % 09/28/20 05:59 Glucose 198 mg/dL (65-100) H 09/28/20 05:59 POC Glucose 71 mg/dL (70-105) 10/01/20 07:37 Hemoglobin A1c 10.5 % (4-6) H 10/01/20 04:11 Lactic Acid 1.20 mmol/L (0.7-2.0) 09/27/20 13:43 Calcium 8.5 mg/dL (8.4-10.2) 09/28/20 05:59 Ferritin 193.8 ng/mL (10.0-200.0) 09/30/20 04:31 Total Bilirubin 0.30 mg/dL (0.1-1.2) 09/28/20 05:59 AST 14 units/L (5-40) 09/28/20 05:59 ALT 8 units/L (7-56) 09/28/20 05:59 Alkaline Phosphatase 74 units/L (35-129) 09/28/20 05:59 Ammonia 17.0 umol/L (25-60) L 09/27/20 12:47 Lactate Dehydrogenase 392 units/L (91-180) H 09/30/20 04:31 Troponin T 0.012 ng/mL (0.00-0.029) 09/27/20 12:47 C-Reactive Protein 6.60 mg/dL (0.00-1.30) H 09/30/20 04:31 NT-Pro-B Natriuret Pep 1392 pg/mL (0-900) H 09/27/20 12:47 Total Protein 6.7 g/dL (6.3-8.2) 09/28/20 05:59 Albumin 3.3 g/dL (3.9-5) L 09/28/20 05:59 Albumin/Globulin Ratio 1.0 % 09/28/20 05:59 Procalcitonin < 0.05 ng/mL (<0.15) 09/27/20 12:47 TSH 1.760 mlU/mL (0.270-4.200) 09/27/20 12:47 Plasma/Serum Alcohol < 0.01 % (0-0.07) 09/27/20 12:47 Coronavirus (PCR) Negative (Negative) 09/27/20 Unknown Microbiology: Microbiology 09/27/20 13:43 Peripheral/Venous Blood Culture - Preliminary NO GROWTH AFTER 72 HOURS 09/27/20 13:47 Peripheral/Venous Blood Culture - Preliminary NO GROWTH AFTER 72 HOURS Harry/IV: Voiding Method External Female Catheter Active Medications - Current Medications Current Medications: Generic Name Dose Route Start Last Admin Trade Name Freq PRN Reason Stop Dose Admin Acetaminophen 650 mg 09/27/20 21:27 Acetaminophen 325 Mg Tab PO Q4H PRN Pain MILD(1-3)/Fever >100.5/CAM Amlodipine Besylate 10 mg 09/29/20 10:00 10/01/20 10:17 Amlodipine 10 Mg Tab PO 10 mg DAILY BHASKAR Administration Citalopram Hydrobromide 20 mg 09/29/20 10:00 10/01/20 10:18 Citalopram 20 Mg Tab PO 20 mg QDAY [facility]ASKAR Administration Divalproex Sodium 500 mg 09/29/20 10:00 10/01/20 10:[address] 500 Mg Tab PO 500 mg BID BHASKAR Administration Enoxaparin Sodium 40 mg 09/27/20 22:00 09/30/20 10:36 Enoxaparin 40 Mg/0.4 Ml Inj SUB-Q 40 mg QDAY [facility] Administration Hydromorphone HCl 0.5 mg 09/27/20 21:27 Hydromorphone 1 Mg/1 Ml Inj IV Q3H PRN Pain , Severe (7-10) Sodium Chloride 1,000 mls @ 100 mls/hr 09/27/20 21:30 Nacl 0.9% 1000 Ml IV DIRECT BHASKAR Ceftriaxone Sodium 2 gm in 100 mls @ 200 mls/hr 09/28/20 15:00 10/01/20 10:17 Rocephin/Ns 2 Gm/100 Ml IV 10/02/20 10:29 200 mls/hr Q24HR [facility] Administration Protocol Insulin Human Isoph/Insulin Regular 10 unit 10/01/20 08:00 10/01/20 09:56 Insulin Nph/Regular 70/30 Inj SUB-Q Not Given BIDDIAB [facility] Insulin Human Lispro 0 unit 09/30/20 22:00 10/01/20 09:56 Insulin Lispro 100 Unit/Ml SUB-Q Not Given ACHS [facility] Protocol Labetalol HCl 10 mg 09/29/20 09:00 Labetalol 20 Mg/4 Ml Inj IV Q4HR PRN SBP>160 Losartan Potassium 25 mg 09/29/20 10:00 10/01/20 10:18 Losartan 25 Mg Tab PO 25 mg QDAY [facility] Administration Morphine Sulfate 2 mg 09/27/20 21:27 Morphine 2 Mg/1 Ml Inj IV Q4H PRN Pain, Moderate (4-6) Ondansetron HCl 4 mg 09/27/20 21:27 Ondansetron 4 Mg/2 Ml Inj IV Q8H PRN Nausea And Vomiting Sodium Chloride 10 ml 09/27/20 22:00 10/01/20 10:18 Sodium Chloride 0.9% 10 Ml Flush Syringe IV 10 ml BID BHASKAR Administration Sodium Chloride 10 ml 09/27/20 21:27 Sodium Chloride 0.9% 10 Ml Flush Syringe IV PRN PRN LINE FLUSH Ziprasidone 40 mg 09/29/20 10:00 10/01/20 10:17 Ziprasidone 40 Mg Cap PO 40 mg DAILY BHASKAR Administration
--- NOTE | 2020-10-01 13:41 | Event Note ---
Date: 10/01/20 I discussed with [place] physician Dr. Castillo at [phone] and updated patient's condition Oxygen requirement and discharge planning, answered all her questions
[2020-10-01] MEDS ORDERED: AZITHROMYCIN 250 MG TAB ONE (15:20)
[2020-10-01] MEDS: AZITHROMYCIN 250 MG TAB PO SCH (15:29)
[2020-10-01] MEDS: ENOXAPARIN 40 MG/0.4 ML INJ SUB-Q SCH (15:29)
[2020-10-02] MEDS: INSULIN LISPRO 100 UNIT/ML SUB-Q SCH ×4 (07:37→21:54)
[2020-10-02] MEDS: INSULIN NPH/REGULAR 70/30 INJ SUB-Q SCH ×2 (07:38→17:43)
--- NOTE | 2020-10-02 08:42 | XRay Report ---
CHEST 1 VIEW INDICATION: Eval infiltrates post treatment. COMPARISON: 09/30/2020 FINDINGS: Support devices: None. Heart: Within normal limits. Lungs/Pleura: Scattered bilateral airspace opacities have decreased by approximately 25% since the pr evious exam. No pleural effusion or pneumothorax. Additional findings: None. IMPRESSION: Mild improvement as described. Signer Name: Mahendra Adams Jr, MD Signed: 10/02/2020 8:38 AM Workstation Name: [id number]
[2020-10-02] MEDS: DIVALPROEX DR 500 MG TAB PO SCH ×2 (09:59→21:34)
[2020-10-02] MEDS: LOSARTAN 25 MG TAB PO SCH (09:59)
[2020-10-02] MEDS: ZIPRASIDONE 40 MG CAP PO SCH (09:59)
[2020-10-02] MEDS: ENOXAPARIN 40 MG/0.4 ML INJ SUB-Q SCH (09:59)
[2020-10-02] MEDS: CITALOPRAM 20 MG TAB PO SCH (09:59)
[2020-10-02] MEDS: amLODIPine 10 MG TAB PO SCH (09:59)
--- NOTE | 2020-10-02 10:56 | Progress Note ---
Assessment and Plan Assessment and plan: --Acute respiratory failure with hypoxia/on high flow nasal cannula oxygen Current Visit: Yes Status: Acute Patient on high flow nasal cannula oxygen 15 L/min at 100% FiO2 Today O2 requirements improved to 8 L nasal cannula saturating 97% Continue to titrate , home O2 evaluation upon discharge COVID-19 negative, continue antibiotics CTA chest negative for PE Continue supportive care --Pneumonia multifocal/community-acquired Current Visit: Yes Status: Acute chest x-ray: Multifocal patchy infiltrates appreciated official read per radiology Patient initiated on IV Zithromax and IV Rocephin Covid 19 PCR test negative Procalcitonin was normal, antibiotics discontinued --Negative COVID-19 test Current Visit: Yes Status: Acute Remy PCR test negative --Hyperglycemia/type 2 diabetes mellitus; Current Visit: Yes Status: Acute Accu-Chek, sliding scale coverage, ADA diet Check A1c, long-acting insulin as needed Diabetic education, nutrition education prior to discharge --History of schizophrenia Current Visit: No Status: Chronic Continue Geodon and Depakote Psych evaluation if needed --Hyponatremia/present on admission Current Visit: Yes Status: Acute Resolved , closely monitor electrolytes Gentle hydration -- Hyperkalemia/resolved Current Visit: Yes Status: Acute Monitor electrolytes --Obesity; BMI 39.4 Current Visit: No Status: Chronic Diet modification, lifestyle changes, exercise as tolerated Weight reduction when medically stable --DVT prophylaxis Current Visit: Yes Status: Acute Plan to address problem: On Lovenox and GI prophylaxis Entry Level Software Developer recommendations noted and appreciated We will closely monitor the patient and adjust the management as needed Plan of care reviewed with the patient and her nurse Daily Hospital course: 09/28/2020: Pending COVID-19 test. Patient states that she did get Covid vaccine. She is currently on high flow nasal cannula. Titrate off oxygen as patient tolerates. Pulmonary consult placed. 09/29/2020: COVID test negative. Bilateral insterstial edema noted on cxr, lasix 40 IV x 1 per pulm direction. CTA chest ordered to R/o PE. Last sat 100% per notes. Will order PT for evaluation of weakness. 09/30/2020; uncontrolled blood sugars, Accu-Chek sliding scale coverage, ADA diet, long-acting insulin Check A1c, diabetic education, nutrition education prior to discharge 10/01/2020; continue to wean oxygen, continue antibiotics I discussed with [place] physician Dr. Castillo at [phone] and updated patient's condition Oxygen requirement and discharge planning 10/02/2020; echocardiogram requested, pending report Patient has some fluid overload, elevated BNP Low-dose Lasix seem to work, follow LVEF History Interval history: I have seen and examined the patient at the bedside Patient's chart and medications reviewed No new events reported by the nursing staff Patient continues to have mild hypoxia Requiring 5 L of nasal cannula oxygen Trial dose of Lasix seemed to improve the symptoms Vital signs noted Hospitalist Physical - Constitutional Vitals: Temp Pulse Resp BP Pulse Ox 98.1 F 72 20 167/67 97 10/02/20 09:11 10/02/20 09:59 10/02/20 09:11 10/02/20 09:59 10/02/20 09:11 General appearance: Present: no acute distress, well-nourished, obese - EENT Eyes: Present: PERRL, EOM intact - Neck Neck: Present: supple, normal ROM - Respiratory Respiratory effort: normal Respiratory: bilateral: diminished, rales, negative: rhonchi, wheezing - Cardiovascular Rhythm: regular Heart Sounds: Present: S1 & S2 - Extremities Extremities: no ischemia, No edema - Abdominal General gastrointestinal: soft, non-tender, non-distended, normal bowel sounds - Integumentary Integumentary: Present: clear, warm - Psychiatric Psychiatric: appropriate mood/affect, cooperative - Neurologic Neurologic: CNII-XII intact, moves all extremities HEART Score - HEART Score Risk factors: 1-2 risk factors Troponin: Troponin T 0.012 ng/mL (0.00-0.029) 09/27/20 12:47 Troponin: < normal limit - Critical Actions Critical Actions: 0-3 pts:0.9-1.7%risk of adverse cardiac event.Candidate for discharge Results - Labs CBC & Chem 7: 09/28/20 05:59 09/28/20 05:59 Labs: Laboratory Last Values WBC 10.8 K/mm3 (4.5-11.0) 09/28/20 05:59 RBC 3.67 M/mm3 (3.65-5.03) 09/28/20 05:59 Hgb 10.9 gm/dl (10.1-14.3) 09/28/20 05:59 Hct 32.9 % (30.3-42.9) 09/28/20 05:59 MCV 90 fl (79-97) 09/28/20 05:59 MCH 30 pg (28-32) 09/28/20 05:59 MCHC 33 % (30-34) 09/28/20 05:59 RDW 15.5 % (13.2-15.2) H 09/28/20 05:59 Plt Count 252 K/mm3 (140-440) 09/28/20 05:59 Lymph % (Auto) 21.2 % (13.4-35.0) 09/28/20 05:59 Russell % (Auto) 5.6 % (0.0-7.3) 09/28/20 05:59 Eos % (Auto) 0.5 % (0.0-4.3) 09/28/20 05:59 Baso % (Auto) 0.7 % (0.0-1.8) 09/28/20 05:59 Lymph # (Auto) 2.3 K/mm3 (1.2-5.4) 09/28/20 05:59 Russell # (Auto) 0.6 K/mm3 (0.0-0.8) 09/28/20 05:59 Eos # (Auto) 0.0 K/mm3 (0.0-0.4) 09/28/20 05:59 Baso # (Auto) 0.1 K/mm3 (0.0-0.1) 09/28/20 05:59 Seg Neutrophils % 72.0 % (40.0-70.0) H 09/28/20 05:59 Seg Neutrophils # 7.8 K/mm3 (1.8-7.7) H 09/28/20 05:59 PT 13.9 Sec. (12.2-14.9) 09/27/20 12:47 INR 1.01 (0.87-1.13) 09/27/20 12:47 APTT 26.6 Sec. (24.2-36.6) 09/27/20 12:47 D-Dimer 1726.31 ng/mlDDU (0-234) H 09/30/20 04:31 ABG pH 7.419 pH Units (7.350-7.450) 09/29/20 09:44 ABG pCO2 47.2 mm Hg 09/29/20 09:44 ABG pO2 53.3 mm Hg (80.0-90.0) L 09/29/20 09:44 ABG HCO3 29.8 mmol/L (20.0-26.0) H 09/29/20 09:44 ABG O2 Saturation 87.2 % (95.0-99.0) L 09/29/20 09:44 ABG O2 Content 16.6 (0.0-44) 09/29/20 09:44 ABG Base Excess 4.5 mmol/L (-2.0-3.0) H 09/29/20 09:44 ABG Hemoglobin 13.8 gm/dl (12.0-16.0) 09/29/20 09:44 ABG Carboxyhemoglobin 1.3 % (0.0-5.0) 09/29/20 09:44 ABG Methemoglobin 0.6 % (0.0-1.5) 09/29/20 09:44 Oxyhemoglobin 85.5 % (95.0-99.0) L 09/29/20 09:44 FiO2 100 % 09/29/20 09:44 Sodium 138 mmol/L (137-145) 09/28/20 05:59 Potassium 5.2 mmol/L (3.6-5.0) H 09/28/20 05:59 Chloride 98.3 mmol/L (98-107) 09/28/20 05:59 Carbon Dioxide 30 mmol/L (22-30) 09/28/20 05:59 Anion Gap 15 mmol/L 09/28/20 05:59 BUN 26 mg/dL (7-17) H 09/28/20 05:59 Creatinine 0.9 mg/dL (0.6-1.2) 09/28/20 05:59 Estimated GFR > 60 ml/min 09/28/20 05:59 BUN/Creatinine Ratio 29 % 09/28/20 05:59 Glucose 198 mg/dL (65-100) H 09/28/20 05:59 POC Glucose 82 mg/dL (70-105) 10/02/20 07:18 Hemoglobin A1c 10.5 % (4-6) H 10/01/20 04:11 Lactic Acid 1.20 mmol/L (0.7-2.0) 09/27/20 13:43 Calcium 8.5 mg/dL (8.4-10.2) 09/28/20 05:59 Ferritin 193.8 ng/mL (10.0-200.0) 09/30/20 04:31 Total Bilirubin 0.30 mg/dL (0.1-1.2) 09/28/20 05:59 AST 14 units/L (5-40) 09/28/20 05:59 ALT 8 units/L (7-56) 09/28/20 05:59 Alkaline Phosphatase 74 units/L (35-129) 09/28/20 05:59 Ammonia 17.0 umol/L (25-60) L 09/27/20 12:47 Lactate Dehydrogenase 392 units/L (91-180) H 09/30/20 04:31 Troponin T 0.012 ng/mL (0.00-0.029) 09/27/20 12:47 C-Reactive Protein 6.60 mg/dL (0.00-1.30) H 09/30/20 04:31 NT-Pro-B Natriuret Pep 1392 pg/mL (0-900) H 09/27/20 12:47 Total Protein 6.7 g/dL (6.3-8.2) 09/28/20 05:59 Albumin 3.3 g/dL (3.9-5) L 09/28/20 05:59 Albumin/Globulin Ratio 1.0 % 09/28/20 05:59 Procalcitonin < 0.05 ng/mL (<0.15) 09/27/20 12:47 TSH 1.760 mlU/mL (0.270-4.200) 09/27/20 12:47 Plasma/Serum Alcohol < 0.01 % (0-0.07) 09/27/20 12:47 Coronavirus (PCR) Negative (Negative) 09/27/20 Unknown Microbiology: Microbiology 09/27/20 13:43 Peripheral/Venous Blood Culture - Preliminary NO GROWTH AFTER 4 DAYS 09/27/20 13:47 Peripheral/Venous Blood Culture - Preliminary NO GROWTH AFTER 4 DAYS Harry/IV: Voiding Method External Female Catheter Active Medications - Current Medications Current Medications: Generic Name Dose Route Start Last Admin Trade Name Freq PRN Reason Stop Dose Admin Acetaminophen 650 mg 09/27/20 21:27 Acetaminophen 325 Mg Tab PO Q4H PRN Pain MILD(1-3)/Fever >100.5/CAM Amlodipine Besylate 10 mg 09/29/20 10:00 10/02/20 09:59 Amlodipine 10 Mg Tab PO 10 mg DAILY BHASKAR Administration Citalopram Hydrobromide 20 mg 09/29/20 10:00 10/02/20 09:59 Citalopram 20 Mg Tab PO 20 mg QDAY BHASKAR Administration Divalproex Sodium 500 mg 09/29/20 10:00 10/02/20 09:[address] 500 Mg Tab PO 500 mg BID BHASKAR Administration Enoxaparin Sodium 40 mg 09/27/20 22:00 10/02/20 09:59 Enoxaparin 40 Mg/0.4 Ml Inj SUB-Q 40 mg QDAY [facility] Administration Hydromorphone HCl 0.5 mg 09/27/20 21:27 Hydromorphone 1 Mg/1 Ml Inj IV Q3H PRN Pain , Severe (7-10) Sodium Chloride 1,000 mls @ 100 mls/hr 09/27/20 21:30 Nacl 0.9% 1000 Ml IV DIRECT [facility] Insulin Human Isoph/Insulin Regular 10 unit 10/01/20 08:00 10/02/20 07:38 Insulin Nph/Regular 70/30 Inj SUB-Q Not Given BIDDIAB [facility] Insulin Human Lispro 0 unit 09/30/20 22:00 10/02/20 07:37 Insulin Lispro 100 Unit/Ml SUB-Q Not Given [facility] Protocol Labetalol HCl 10 mg 09/29/20 09:00 Labetalol 20 Mg/4 Ml Inj IV Q4HR PRN SBP>160 Losartan Potassium 25 mg 09/29/20 10:00 10/02/20 09:59 Losartan 25 Mg Tab PO 25 mg QDAY [facility] Administration Morphine Sulfate 2 mg 09/27/20 21:27 Morphine 2 Mg/1 Ml Inj IV Q4H PRN Pain, Moderate (4-6) Ondansetron HCl 4 mg 09/27/20 21:27 Ondansetron 4 Mg/2 Ml Inj IV Q8H PRN Nausea And Vomiting Sodium Chloride 10 ml 09/27/20 22:00 10/02/20 09:59 Sodium Chloride 0.9% 10 Ml Flush Syringe IV 10 ml BID [facility]ASK[facility] Administration Sodium Chloride 10 ml 09/27/20 21:27 Sodium Chloride 0.9% 10 Ml Flush Syringe IV PRN PRN LINE FLUSH Ziprasidone 40 mg 09/29/20 10:00 10/02/20 09:59 Ziprasidone 40 Mg Cap PO 40 mg DAILY [facility]ASKAR Administration
--- NOTE | 2020-10-02 11:08 | Progress Note ---
Assessment and Plan 54 y/o female with acute respiratory failure secondary to possible right sided pneumonia vs pulmonary edema with morbid obesity. 10/02/20: CXR shows improvement, most likely this is related to edema. Suggest continued diuresis today. Will order lasix again today. 10/01/20: Suggest obtaining echo given elevated BNP on admission. Will give another dose of lasix today. Wean FiO2 for sats >88%. Can likely stop abx therapy as well. Will repeat CXR today to see improvement in opacities, if so, most likely related to edema. 09/30/20: Continue diuretic therapy as this is helping with oxygen requirement. Keep bipap available PRN. Continue to wean for sats >88%. BP control per primary. 1. ABG NOW 2. Lasix 40mg IV x1 now 3. May need bipap therapy given low saturations on HFNC 4. BP control, may need to consider nitropaste and morphine injection to help with dyspnea 5. Weight loss 6. Ok with abx therapy Subjective Date of service: 10/02/20 Interval history: Down to 5 liters and still has more room to be weaned. Good sats. Objective Vital Signs - 12hr 10/01/20 10/02/20 10/02/20 23:32 02:00 04:26 Temperature 98.1 F 98.4 F Pulse Rate 71 72 Respiratory 18 16 Rate Blood Pressure 172/65 Blood Pressure 160/68 [Left] O2 Sat by Pulse 95 99 98 Oximetry 10/02/20 10/02/20 10/02/20 08:00 09:11 09:59 Temperature 98.1 F Pulse Rate 72 72 Respiratory 20 Rate Blood Pressure 167/67 167/67 Blood Pressure [Left] O2 Sat by Pulse 98 97 Oximetry Constitutional: no acute distress, alert Eyes: non-icteric Neck: supple, other (large in circumference) Effort: mildly labored Ascultation: Bilateral: rales Percussion: Bilateral: not dull Cardiovascular: regular rate and rhythm Gastrointestinal: other (obese) CBC and BMP: 09/28/20 05:59 09/28/20 05:59 ABG, PT/INR, D-dimer: ABG ABG pH 7.419 pH Units (7.350-7.450) 09/29/20 09:44 ABG pCO2 47.2 mm Hg 09/29/20 09:44 ABG pO2 53.3 mm Hg (80.0-90.0) L 09/29/20 09:44 ABG O2 Saturation 87.2 % (95.0-99.0) L 09/29/20 09:44 PT/INR, D-dimer PT 13.9 Sec. (12.2-14.9) 09/27/20 12:47 INR 1.01 (0.87-1.13) 09/27/20 12:47 D-Dimer 1726.31 ng/mlDDU (0-234) H 09/30/20 04:31 Abnormal lab findings: Abnormal Labs 09/27/20 09/27/20 09/27/20 12:47 12:47 12:47 WBC 11.3 H RDW 15.7 H Baso # (Auto) 0.2 H Seg Neutrophils % 75.6 H Seg Neutrophils # 8.5 H D-Dimer 445.09 H ABG pO2 ABG HCO3 ABG O2 Saturation ABG Base Excess Oxyhemoglobin Sodium 132 L Potassium 5.6 H Chloride 92.7 L BUN 22 H Glucose 254 H POC Glucose Hemoglobin A1c Ammonia Lactate Dehydrogenase 221 H C-Reactive Protein 10.10 H NT-Pro-B Natriuret Pep 1392 H Albumin 09/27/20 09/28/20 09/28/20 12:47 05:59 05:59 WBC RDW 15.5 H Baso # (Auto) Seg Neutrophils % 72.0 H Seg Neutrophils # 7.8 H D-Dimer ABG pO2 ABG HCO3 ABG O2 Saturation ABG Base Excess Oxyhemoglobin Sodium Potassium 5.2 H Chloride BUN 26 H Glucose 198 H POC Glucose Hemoglobin A1c Ammonia 17.0 L Lactate Dehydrogenase C-Reactive Protein NT-Pro-B Natriuret Pep Albumin 3.3 L 09/29/20 09/30/20 09/30/20 09:44 04:31 04:31 WBC RDW Baso # (Auto) Seg Neutrophils % Seg Neutrophils # D-Dimer 1726.31 H ABG pO2 53.3 L ABG HCO3 29.8 H ABG O2 Saturation 87.2 L ABG Base Excess 4.5 H Oxyhemoglobin 85.5 L Sodium Potassium Chloride BUN Glucose POC Glucose Hemoglobin A1c Ammonia Lactate Dehydrogenase 392 H C-Reactive Protein 6.60 H NT-Pro-B Natriuret Pep Albumin 09/30/20 09/30/20 09/30/20 07:55 11:21 15:35 WBC RDW Baso # (Auto) Seg Neutrophils % Seg Neutrophils # D-Dimer ABG pO2 ABG HCO3 ABG O2 Saturation ABG Base Excess Oxyhemoglobin Sodium Potassium Chloride BUN Glucose POC Glucose 319 H 324 H 303 H Hemoglobin A1c Ammonia Lactate Dehydrogenase C-Reactive Protein NT-Pro-B Natriuret Pep Albumin 09/30/20 10/01/20 10/01/20 20:17 04:11 12:44 WBC RDW Baso # (Auto) Seg Neutrophils % Seg Neutrophils # D-Dimer ABG pO2 ABG HCO3 ABG O2 Saturation ABG Base Excess Oxyhemoglobin Sodium Potassium Chloride BUN Glucose POC Glucose 248 H 169 H Hemoglobin A1c 10.5 H Ammonia Lactate Dehydrogenase C-Reactive Protein NT-Pro-B Natriuret Pep Albumin 10/01/20 10/01/20 16:34 20:09 WBC RDW Baso # (Auto) Seg Neutrophils % Seg Neutrophils # D-Dimer ABG pO2 ABG HCO3 ABG O2 Saturation ABG Base Excess Oxyhemoglobin Sodium Potassium Chloride BUN Glucose POC Glucose 194 H 192 H Hemoglobin A1c Ammonia Lactate Dehydrogenase C-Reactive Protein NT-Pro-B Natriuret Pep Albumin
[2020-10-02] MEDS: FUROSEMIDE 40 MG/4 ML INJ IV SCH (12:18)
[2020-10-02] MEDS ORDERED: FUROSEMIDE 40 MG/4 ML INJ IV ONE (12:38)
[2020-10-03 05:54] LABS: Blood Urea Nitrogen 15 mg/dL (7-17); Calcium 9.5 mg/dL (8.4-10.2); Hemolysis Index 1
[2020-10-03 06:02] LABS: BUN/Creatinine Ratio 25
[2020-10-03] MEDS: FUROSEMIDE 40 MG/4 ML INJ IV SCH (07:33)
[2020-10-03] MEDS: INSULIN LISPRO 100 UNIT/ML SUB-Q SCH ×2 (08:13→11:44)
[2020-10-03] MEDS: amLODIPine 10 MG TAB PO SCH (09:07)
[2020-10-03] MEDS: CITALOPRAM 20 MG TAB PO SCH (09:07)
[2020-10-03] MEDS: ENOXAPARIN 40 MG/0.4 ML INJ SUB-Q SCH (09:07)
[2020-10-03] MEDS: ZIPRASIDONE 40 MG CAP PO SCH (09:07)
[2020-10-03] MEDS: INSULIN NPH/REGULAR 70/30 INJ SUB-Q SCH (09:07)
[2020-10-03] MEDS: DIVALPROEX DR 500 MG TAB PO SCH (09:07)
[2020-10-03] MEDS: LOSARTAN 25 MG TAB PO SCH (09:09)
[2020-10-03 12:02] VITALS: BP 157/55
--- NOTE | 2020-10-03 13:00 | Progress Note ---
Assessment and Plan 54 y/o female with acute respiratory failure secondary to possible right sided pneumonia vs pulmonary edema with morbid obesity. : Pulm status continue to improve with diuresis. suggest doing again today prepping patient for oral therapy at discharge. Will need walk test prior discharge to assess oxygen need if any. Will sign off. 10/02/20: CXR shows improvement, most likely this is related to edema. Suggest continued diuresis today. Will order lasix again today. 10/01/20: Suggest obtaining echo given elevated BNP on admission. Will give another dose of lasix today. Wean FiO2 for sats >88%. Can likely stop abx t herapy as well. Will repeat CXR today to see improvement in opacities, if so, most likely related to edema. 09/30/20: Continue diuretic therapy as this is helping with oxygen requirement. Keep bipap available PRN. Continue to wean for sats >88%. BP control per primary. 1. ABG NOW 2. Lasix 40mg IV x1 now 3. May need bipap therapy given low saturations on HFNC 4. BP control, may need to consider nitropaste and morphine injection to help with dyspnea 5. Weight loss 6. Ok with abx therapy Subjective Date of service: 10/03/20 Interval history: As of last night down to 3 liters nC. Good sats. Tolerating diuresis very well. Diastolic dysfunction seen on echo but normal EF Objective Vital Signs - 12hr 10/03/20 10/03/20 10/03/20 04:36 07:44 08:08 Temperature 98.2 F 97.5 F L Pulse Rate 72 70 Respiratory 18 20 Rate Blood Pressure 174/59 153/70 O2 Sat by Pulse 97 99 91 Oximetry 10/03/20 11:42 Temperature 97.9 F Pulse Rate 69 Respiratory 18 Rate Blood Pressure 157/55 O2 Sat by Pulse 96 Oximetry Constitutional: no acute distress, alert Eyes: non-icteric Neck: supple, other (large in circumference) Effort: mildly labored Ascultation: Bilateral: rales Percussion: Bilateral: not dull Cardiovascular: regular rate and rhythm Gastrointestinal: other (obese) CBC and BMP: 09/28/20 05:59 10/03/20 05:14 ABG, PT/INR, D-dimer: ABG ABG pH 7.419 pH Units (7.350-7.450) 09/29/20 09:44 ABG pCO2 47.2 mm Hg 09/29/20 09:44 ABG pO2 53.3 mm Hg (80.0-90.0) L 09/29/20 09:44 ABG O2 Saturation 87.2 % (95.0-99.0) L 09/29/20 09:44 PT/INR, D-dimer PT 13.9 Sec. (12.2-14.9) 09/27/20 12:47 INR 1.01 (0.87-1.13) 09/27/20 12:47 D-Dimer 1726.31 ng/mlDDU (0-234) H 09/30/20 04:31 Abnormal lab findings: Abnormal Labs 09/27/20 09/27/20 09/27/20 12:47 12:47 12:47 WBC 11.3 H RDW 15.7 H Baso # (Auto) 0.2 H Seg Neutrophils % 75.6 H Seg Neutrophils # 8.5 H D-Dimer 445.09 H ABG pO2 ABG HCO3 ABG O2 Saturation ABG Base Excess Oxyhemoglobin Sodium 132 L Potassium 5.6 H Chloride 92.7 L Carbon Dioxide BUN 22 H Glucose 254 H POC Glucose Hemoglobin A1c Ammonia Lactate Dehydrogenase 221 H C-Reactive Protein 10.10 H NT-Pro-B Natriuret Pep 1392 H Albumin 09/27/20 09/28/20 09/28/20 12:47 05:59 05:59 WBC RDW 15.5 H Baso # (Auto) Seg Neutrophils % 72.0 H Seg Neutrophils # 7.8 H D-Dimer ABG pO2 ABG HCO3 ABG O2 Saturation ABG Base Excess Oxyhemoglobin Sodium Potassium 5.2 H Chloride Carbon Dioxide BUN 26 H Glucose 198 H POC Glucose Hemoglobin A1c Ammonia 17.0 L Lactate Dehydrogenase C-Reactive Protein NT-Pro-B Natriuret Pep Albumin 3.3 L 09/29/20 09/30/20 09/30/20 09:44 04:31 04:31 WBC RDW Baso # (Auto) Seg Neutrophils % Seg Neutrophils # D-Dimer 1726.31 H ABG pO2 53.3 L ABG HCO3 29.8 H ABG O2 Saturation 87.2 L ABG Base Excess 4.5 H Oxyhemoglobin 85.5 L Sodium Potassium Chloride Carbon Dioxide BUN Glucose POC Glucose Hemoglobin A1c Ammonia Lactate Dehydrogenase 392 H C-Reactive Protein 6.60 H NT-Pro-B Natriuret Pep Albumin 09/30/20 09/30/20 09/30/20 07:55 11:21 15:35 WBC RDW Baso # (Auto) Seg Neutrophils % Seg Neutrophils # D-Dimer ABG pO2 ABG HCO3 ABG O2 Saturation ABG Base Excess Oxyhemoglobin Sodium Potassium Chloride Carbon Dioxide BUN Glucose POC Glucose 319 H 324 H 303 H Hemoglobin A1c Ammonia Lactate Dehydrogenase C-Reactive Protein NT-Pro-B Natriuret Pep Albumin 09/30/20 10/01/20 10/01/20 20:17 04:11 12:44 WBC RDW Baso # (Auto) Seg Neutrophils % Seg Neutrophils # D-Dimer ABG pO2 ABG HCO3 ABG O2 Saturation ABG Base Excess Oxyhemoglobin Sodium Potassium Chloride Carbon Dioxide BUN Glucose POC Glucose 248 H 169 H Hemoglobin A1c 10.5 H Ammonia Lactate Dehydrogenase C-Reactive Protein NT-Pro-B Natriuret Pep Albumin 10/01/20 10/01/20 10/02/20 16:34 20:09 11:10 WBC RDW Baso # (Auto) Seg Neutrophils % Seg Neutrophils # D-Dimer ABG pO2 ABG HCO3 ABG O2 Saturation ABG Base Excess Oxyhemoglobin Sodium Potassium Chloride Carbon Dioxide BUN Glucose POC Glucose 194 H 192 H 137 H Hemoglobin A1c Ammonia Lactate Dehydrogenase C-Reactive Protein NT-Pro-B Natriuret Pep Albumin 10/02/20 10/02/20 10/03/20 16:47 20:47 05:14 WBC RDW Baso # (Auto) Seg Neutrophils % Seg Neutrophils # D-Dimer ABG pO2 ABG HCO3 ABG O2 Saturation ABG Base Excess Oxyhemoglobin Sodium Potassium Chloride Carbon Dioxide 31 H BUN Glucose 110 H POC Glucose 186 H 154 H Hemoglobin A1c Ammonia Lactate Dehydrogenase C-Reactive Protein NT-Pro-B Natriuret Pep Albumin 10/03/20 10/03/20 08:07 11:41 WBC RDW Baso # (Auto) Seg Neutrophils % Seg Neutrophils # D-Dimer ABG pO2 ABG HCO3 ABG O2 Saturation ABG Base Excess Oxyhemoglobin Sodium Potassium Chloride Carbon Dioxide BUN Glucose POC Glucose 119 H 135 H Hemoglobin A1c Ammonia Lactate Dehydrogenase C-Reactive Protein NT-Pro-B Natriuret Pep Albumin
--- NOTE | 2020-10-03 15:26 | Discharge Summary ---
Providers - Providers Date of Admission: 09/27/20 21:27 Attending physician: SUSY ANDREWS 09/28/20 14:11 Physical Therapy Evaluation and Treat [CONS] Routine Comment: Reason For Exam: debility 09/29/20 08:53 Consult to Case Management [CONS] Routine Services Needed at Discharge: Other Notified:: case management Comment:: DISCHARGE PLANNING Hospitalization Condition: Serious Disposition: 01 HOME / SELF CARE / HOMELESS Exam - Constitutional Vitals: Temp Pulse Resp BP Pulse Ox 97.9 F 69 18 157/55 96 10/03/20 11:42 10/03/20 11:42 10/03/20 11:42 10/03/20 11:42 10/03/20 11:42 Plan Follow up with: SANCHEZ STARK [Other] - 3-5 Days
== END 2020-10-03 17:40 | disposition home health service (06) | DRG 193 ==
LOC: ED 11:52 → 3A 21:27 → 4A 09-29 20:38
PROVIDERS: ADMIT Internal Medicine; ATTEND Internal Medicine
PROC: 4A033R1 Measurement of Arterial Saturation, Peripheral, Percutaneous Approach (ICD-10-PCS; principal; 2020-09-29)
PROC: 5A0935A Assistance with Respiratory Ventilation, Less than 24 Consecutive Hours, High Flow/Velocity Cannula (ICD-10-PCS; 2020-09-29)
DX: J18.9 Pneumonia, unspecified organism (principal); J96.01 Acute respiratory failure with hypoxia; E87.1 Hypo-osmolality and hyponatremia; Z20.822 Contact with and (suspected) exposure to COVID-19; F20.9 Schizophrenia, unspecified; E11.65 Type 2 diabetes mellitus with hyperglycemia; I10 Essential (primary) hypertension; E78.5 Hyperlipidemia, unspecified; E87.5 Hyperkalemia; E66.01 Morbid (severe) obesity due to excess calories; Z68.39 Body mass index [BMI] 39.0-39.9, adult; Z90.49 Acquired absence of other specified parts of digestive tract; Z79.899 Other long term (current) drug therapy
CPT/HCPCS: 36415; 36600; 70450; 71045; 71275; 80048; 80053; 80320; 82140; 82728; 82803; 82962; 83036; 83615; 83880; 84145; 84443; 84484; 85025; 85379; 85610; 85730; 86140; 87040; 93005; 93306; 94760; G0378; G0480; J0456; J0696; J1100; J1650; J1815; J1940; Q9967; U0003

== ENCOUNTER 2021-07-05 22:19 | Observation (INO) | payer MEDICARE ==
[2021-07-05] MEDS ORDERED: COLCHICINE 0.6 MG TAB PO ONE (22:57)
[2021-07-05] MEDS ORDERED: ALBUTEROL 2.5 MG/3 ML NEBU IH ONE (22:57)
[2021-07-05] MEDS ORDERED: IPRATROPIUM 0.02% NEBU 2.5 ML IH ONE (22:57)
[2021-07-05] MEDS ORDERED: MAGNESIUM SULFATE 2 GM/50 ML BAG IV ONE (22:57)
[2021-07-05] MEDS ORDERED: HYDROcodone/ACETAMINOPHEN 10-325MG TAB PO ONE (22:57)
--- NOTE | 2021-07-05 23:07 | Emergency Department Report ---
ED Asthma HPI - General Chief Complaint: Adult Asthma Stated Complaint: ASTHMA/YAMIL Time Seen by Provider: 07/05/21 22:48 Source: patient Mode of arrival: Stretcher Limitations: No Limitations - History of Present Illness Initial Comments: 55-year-old female the past medical history of asthma without previous intubations, obesity hypoventilation syndrome, DVT currently on Eliquis, diabetes, hypertension, schizophrenia, and neuropathy presents to the hospital complaining of wheezing and shortness of breath x1 day. Patient ran out of her nebs and inhaler. Patient was treated by EMS with magnesium 2 g, Solu-Medrol 125 mg, and albuterol 5 mg inhaled and reports improvement in symptoms. She does report residual moderate chest tightness with inspiration secondary to asthma, mild abdominal pain secondary to dry cough, and left wrist pain for the last 2 weeks secondary to gout flare. Patient is requesting medication for gout flare as well and taking Naprosyn without improvement. She denies wrist injury. patient states she is vaccinated for COVID with last dose last year but did not receive booster - Related Data Home Medications Medication Instructions Recorded Confirmed Last Taken Citalopram Hydrobromide [celeXA] 40 mg PO DAILY 06/03/20 09/27/20 Unknown Citalopram [celeXA] 20 mg PO QDAY 06/03/20 09/27/20 Unknown Divalproex [Elda MACIEL] 500 mg PO BID 06/03/20 09/27/20 Unknown Losartan [Cozaar] 25 mg PO QDAY 06/03/20 09/27/20 Unknown Ziprasidone [Geodon] 40 mg PO DAILY 06/03/20 09/27/20 Unknown traMADoL [Ultram] 50 mg PO Q4HR PRN 06/03/20 09/27/20 Unknown Previous Rx's Medication Instructions Recorded Last Taken Type HYDROcodone/APAP 5-325 [[place] 1 each PO Q6HR PRN #12 tablet 09/23/20 Unknown Rx 5/325] Ondansetron [Zofran Odt] 4 mg PO Q4HR PRN #20 tab.rapdis 09/23/20 Unknown Rx Furosemide [Lasix TAB] 40 mg PO QDAY #30 tablet 10/03/20 Unknown Rx Allergies Allergy/AdvReac Type Severity Reaction Status Date / Time hydrocortisone Allergy Unknown Verified 05/06/21 06:18 [From [facility]] ibuprofen Allergy Itching Verified 07/05/21 22:44 yerba maya [From [facility]] Allergy Unknown Verified 05/06/21 06:18 Ear drops AdvReac Unknown Uncoded 05/06/21 06:18 ED Review of Systems ROS: Stated complaint: ASTHMA/YAMIL Other details as noted in HPI Comment: All other systems reviewed and negative ED Past Medical Hx - Past Medical History Previous Medical History?: Yes Hx Hypertension: Yes Hx Diabetes: Yes Hx Deep Vein Thrombosis: Yes Hx Seizures: Yes Hx Psychiatric Treatment: Yes (schizophrenia) Additional medical history: Neuropathy, Hyperlipidemia - Surgical History Past Surgical History?: Yes Hx Cholecystectomy: Yes Additional Surgical History: , L rotary cuff, tubal ligation - Social History Smoking Status: Never Smoker Substance Use Type: None - Medications Home Medications: Home Medications Medication Instructions Recorded Confirmed Last Taken Type Citalopram Hydrobromide [celeXA] 40 mg PO DAILY 06/03/20 09/27/20 Unknown History Citalopram [celeXA] 20 mg PO QDAY 06/03/20 09/27/[address] [DepaKOTE DR] 500 mg PO BID 06/03/20 09/27/20 Unknown History Losartan [Cozaar] 25 mg PO QDAY 06/03/20 09/27/20 Unknown History Ziprasidone [Geodon] 40 mg PO DAILY 06/03/20 09/27/20 Unknown History traMADoL [Ultram] 50 mg PO Q4HR PRN 06/03/20 09/27/20 Unknown History HYDROcodone/APAP 5-325 [[place] 1 each PO Q6HR PRN #12 tablet 09/23/20 Unknown Rx 5/325] Ondansetron [Zofran Odt] 4 mg PO Q4HR PRN #20 tab.rapdis 09/23/20 Unknown Rx Furosemide [Lasix TAB] 40 mg PO QDAY #30 tablet 10/03/20 Unknown Rx ED Physical Exam - General Limitations: No Limitations - Other Other exam information: General: No acute distress Head: Atraumatic Eyes: normal appearance ENT: Moist mucous membranes Neck: Normal appearance, no midline tenderness Chest: No accessory muscle use or tachypnea, significant bilateral expiratory wheezing on examination CV: Regular rate and rhythm Abdomen: Soft, normal bowel sounds, nontender, nondistended, no rebound or guarding Back: Normal inspection Extremity: Left wrist mild warmth without redness. Diffuse mild swelling and significant tenderness with palpation and movement. No lower extremity edema Neuro: Alert O x 3, no facial asymmetry, speech clear, no gross motor sensory deficit Psych: Appropriate behavior Skin: No rash ED Course Vital Signs 07/05/21 07/05/21 07/06/21 22:36 23:18 00:45 Temperature 98 F Pulse Rate 84 Pulse Rate [ 81 Anterior] Respiratory 18 Rate Respiratory 16 Rate [Anterior] Blood Pressure 161/70 O2 Sat by Pulse 88 Oximetry ED Medical Decision Making - Lab Data Result diagrams: 07/05/21 23:13 07/05/21 23:13 Lab Results 07/05/21 07/05/21 07/06/21 Range/Units 23:13 23:13 03:11 WBC 11.4 H (4.5-11.0) K/mm3 RBC 3.67 (3.65-5.03) M/mm3 Hgb 10.5 (10.1-14.3) gm/dl Hct 32.6 (30.3-42.9) % MCV 89 (79-97) fl MCH 29 (28-32) pg MCHC 32 (30-34) % RDW 16.7 H (13.2-15.2) % Plt Count 246 (140-440) K/mm3 Lymph % (Auto) 25.0 (13.4-35.0) % [place] % (Auto) 4.5 (0.0-7.3) % Eos % (Auto) 2.1 (0.0-4.3) % Baso % (Auto) 0.9 (0.0-1.8) % Lymph # (Auto) 2.8 (1.2-5.4) K/mm3 [place] # (Auto) 0.5 (0.0-0.8) K/mm3 Eos # (Auto) 0.2 (0.0-0.4) K/mm3 Baso # (Auto) 0.1 (0.0-0.1) K/mm3 Seg Neutrophils % 67.5 (40.0-70.0) % Seg Neutrophils # 7.7 (1.8-7.7) K/mm3 ABG pH (7.350-7.450) pH Units ABG pCO2 mm Hg ABG pO2 (80.0-90.0) mm Hg ABG HCO3 (20.0-26.0) mmol/L ABG O2 Saturation (95.0-99.0) % ABG O2 Content (0.0-44) ABG Base Excess (-2.0-3.0) mmol/L ABG Hemoglobin (12.0-16.0) gm/dl ABG Carboxyhemoglobin (0.0-5.0) % ABG Methemoglobin (0.0-1.5) % Oxyhemoglobin (95.0-99.0) % FiO2 % Sodium 141 (137-145) mmol/L Potassium 4.4 (3.6-5.0) mmol/L Chloride 103.5 (98-107) mmol/L Carbon Dioxide 24 (22-30) mmol/L Anion Gap 18 mmol/L BUN 19 H (7-17) mg/dL Creatinine 1.2 (0.6-1.2) mg/dL Estimated GFR 56 ml/min BUN/Creatinine Ratio 16 % Glucose 249 H (65-100) mg/dL Calcium 9.2 (8.4-10.2) mg/dL Troponin T (0.00-0.029) ng/mL NT-Pro-B Natriuret Pep 712.8 (0-900) pg/mL 07/06/21 07/06/21 Range/Units 03:30 Unknown WBC (4.5-11.0) K/mm3 RBC (3.65-5.03) M/mm3 Hgb (10.1-14.3) gm/dl Hct (30.3-42.9) % MCV (79-97) fl MCH (28-32) pg MCHC (30-34) % RDW (13.2-15.2) % Plt Count (140-440) K/mm3 Lymph % (Auto) (13.4-35.0) % [place] % (Auto) (0.0-7.3) % Eos % (Auto) (0.0-4.3) % Baso % (Auto) (0.0-1.8) % Lymph # (Auto) (1.2-5.4) K/mm3 [place] # (Auto) (0.0-0.8) K/mm3 Eos # (Auto) (0.0-0.4) K/mm3 Baso # (Auto) (0.0-0.1) K/mm3 Seg Neutrophils % (40.0-70.0) % Seg Neutrophils # (1.8-7.7) K/mm3 ABG pH 7.339 L (7.350-7.450) pH Units ABG pCO2 49.2 mm Hg ABG pO2 45.4 L (80.0-90.0) mm Hg ABG HCO3 25.9 (20.0-26.0) mmol/L ABG O2 Saturation 80.4 L (95.0-99.0) % ABG O2 Content 12.2 (0.0-44) ABG Base Excess -0.3 (-2.0-3.0) mmol/L ABG Hemoglobin 11.4 L (12.0-16.0) gm/dl ABG Carboxyhemoglobin 4.7 (0.0-5.0) % ABG Methemoglobin 0.5 (0.0-1.5) % Oxyhemoglobin 76.1 L (95.0-99.0) % FiO2 21 % Sodium (137-145) mmol/L Potassium (3.6-5.0) mmol/L Chloride (98-107) mmol/L Carbon Dioxide (22-30) mmol/L Anion Gap mmol/L BUN (7-17) mg/dL Creatinine (0.6-1.2) mg/dL Estimated GFR ml/min BUN/Creatinine Ratio % Glucose (65-100) mg/dL Calcium (8.4-10.2) mg/dL Troponin T < 0.010 (0.00-0.029) ng/mL NT-Pro-B Natriuret Pep (0-900) pg/mL - EKG Data -: EKG Interpreted by [facility] EKG shows normal: sinus rhythm, ST-T waves (No STEMI) Rate: normal - EKG Data When compared to previous EKG there are: no significant change - Radiology Data Radiology results: report reviewed CHEST 1 VIEW INDICATION / CLINICAL INFORMATION: sob, asthma STUDY TIME: 51 COMPARISON: 10/02/2020 FINDINGS: SUPPORT DEVICES: None HEART / MEDIASTINUM: No significant abnormality. LUNGS / PLEURA: Congestion is noted with interstitial pulmonary edema. Focal density is seen in the right base, possibly related to the congestive process but acute pneumonitis is possible. No obvious pleural effusions are seen. No pneumothorax. ADDITIONAL FINDINGS: No significant additional findings. - Medical Decision Making As registration patient's Clark is no longer active therefore patient will be admitted here Patient presents to the hospital with suspected acute asthma exacerbation with significant wheezing and not having access to bronchodilators at home because she ran out of medications. X-ray shows signs of pulmonary edema. Patient denies history of same. She also has history of DVT and states she is compliant with her Eliquis. Patient has significant hypoxia despite treatment with bronchodilators and steroids 83% on room air at rest even though she reports f eeling better. ABG on room air reveals a saturation of 80% with mild CO2 retention and respiratory acidosis. Patient also consistently has bilateral wheezing despite treatments. Patient medicated with albuterol, Atrovent, and Lasix in the ED as well as supplemental oxygen. She is satting 93% on 2 L room air. EKG and cardiac areas were unremarkable. Patient will be admitted to the hospital service for further treatment Critical Care Time: Yes Critical care time in (mins) excluding proc time.: 40 Critical care attestation.: If time is entered above; I have spent that time in minutes in the direct care of this critically ill patient, excluding procedure time. Critical Care Time: 40 Minutes of critical care time excluding procedures were used in the care of the patient. I came immediately to the bedside upon patient's arrival. I discussed treatment plan with the nursing team members. I reviewed electronic record. Patient required multiple interventions and reassessments. ED Disposition Clinical Impression: Acute respiratory failure with hypoxia, Acute asthma exacerbation, Pulmonary edema, Chronic anticoagulation, History of DVT (deep vein thrombosis) Disposition: ADMITTED INPATIENT Is pt being admited?: Yes Condition: Stable Instructions: Pulmonary Edema (ED) Time of Disposition: 04:11 (Discussed with Dr. Joyner)
[2021-07-05 23:21] LABS: Basophils # (Auto) 0.1 K/mm3 (0.0-0.1); Basophils % (Auto) 0.9 % (0.0-1.8); Eosinophils # (Auto) 0.2 K/mm3 (0.0-0.4); Eosinophils % (Auto) 2.1 % (0.0-4.3); Hematocrit 32.6 % (30.3-42.9); Hemoglobin 10.5 gm/dl (10.1-14.3); Lymphocytes # (Auto) 2.8 K/mm3 (1.2-5.4); Mean Corpuscular HGB Conc 32 % (30-34); Mean Corpuscular Volume 89 fl (79-97); Monocytes # (Auto) 0.5 K/mm3 (0.0-0.8); Monocytes % (Auto) 4.5 % (0.0-7.3); Platelet Count 246 K/mm3 (140-440); Red Blood Count 3.67 M/mm3 (3.65-5.03); Red Cell Distribution Width 16.7 % (13.2-15.2)
[2021-07-05 23:41] LABS: Calcium 9.2 mg/dL (8.4-10.2)
[2021-07-06] MEDS ORDERED: MAGNESIUM SULFATE 2 GM/50 ML BAG IV ONE (00:44)
--- NOTE | 2021-07-06 01:48 | XRay Report ---
CHEST 1 VIEW INDICATION / CLINICAL INFORMATION: sob, asthma STUDY TIME: 51 COMPARISON: 10/02/2020 FINDINGS: SUPPORT DEVICES: None HEART / MEDIASTINUM: No significant abnormality. LUNGS / PLEURA: Congestion is noted with interstitial pulmonary edema. Focal density is seen in the r ight base, possibly related to the congestive process but acute pneumonitis is possible. No obvious p leural effusions are seen. No pneumothorax. ADDITIONAL FINDINGS: No significant additional findings. Signer Name: Santiago Larsen MD Signed: 07/06/2021 1:44 AM Workstation Name: [id number]
[2021-07-06] MEDS ORDERED: FUROSEMIDE 40 MG/4 ML INJ IV ONE (03:14)
[2021-07-06 03:39] LABS: ABG Base Excess -0.3 mmol/L (-2.0-3.0); ABG HCO3 25.9 mmol/L (20.0-26.0); ABG Methemoglobin 0.5 % (0.0-1.5); ABG Oxygen Saturation 80.4 % (95.0-99.0); ABG PCO2 49.2 mm Hg; ABG PH 7.339 pH Units (7.350-7.450); ABG PO2 45.4 mm Hg (80.0-90.0)
[2021-07-06] MEDS ORDERED: ALBUTEROL 2.5 MG/3 ML NEBU IH ONE (04:12)
[2021-07-06] MEDS ORDERED: ONDANSETRON 4 MG/2 ML INJ IV PRN (05:17)
[2021-07-06] MEDS ORDERED: MORPHINE 2 MG/1 ML INJ IV PRN (05:17)
[2021-07-06] MEDS ORDERED: ACETAMINOPHEN 325 MG TAB PO PRN (05:17)
[2021-07-06] MEDS ORDERED: MORPHINE 4 MG/1 ML INJ IV PRN (05:17)
[2021-07-06] MEDS ORDERED: ALBUTEROL 2.5 MG/3 ML NEBU IH PRN (05:17)
--- NOTE | 2021-07-06 05:25 | History and Physical Report ---
History of Present Illness Date of examination: 07/06/21 Date of admission: 07/06/20 Chief complaint: Shortness of breath Gout flare History of present illness: 55-year-old female with history of asthma without previous intubations, obesity hypoventilation syndrome, DVT currently on Eliquis, diabetes, hypertension, schizophrenia, and neuropathy was brought to the emergency room because of wheezing and shortness of breath x1 day. Patient ran out of her nebs and i nhaler. Patient was treated by EMS with magnesium 2 g, Solu-Medrol 125 mg, and albuterol 5 mg inhaled and reports improvement in symptoms. She does report residual moderate chest tightness with inspiration secondary to asthma, mild abdominal pain secondary to dry cough, and left wrist pain for the last 2 weeks secondary to gout flare. Patient is requesting medication for gout flare as well and taking Naprosyn without improvement. She denies wrist injury. patient states she is vaccinated for COVID with last dose last year but did not receive booster In the emergency room she is found to have acute respiratory failure, COPD exacerbation , chest x-ray shows congestion, pulmonary edema. So going to admit the patient we will put the patient on COPD and CHF pathway Past History Past Medical History: diabetes, DVT, hypertension, seizures, other (Sc hizophrenia, neuropathy, hyperlipidemia) Past Surgical History: cholecystectomy, Other (, L rotary cuff, tubal ligation) Social history: no significant social history Family history: hypertension Medications and Allergies Allergies Allergy/AdvReac Type Severity Reaction Status Date / Time hydrocortisone Allergy Unknown Verified 05/06/21 06:18 [From [facility]] ibuprofen Allergy Itching Verified 07/05/21 22:44 yerba maya [From [facility]] Allergy Unknown Verified 05/06/21 06:18 Ear drops AdvReac Unknown Uncoded 05/06/21 06:18 Home Medications Medication Instructions Recorded Confirmed Last Taken Type Citalopram Hydrobromide [celeXA] 40 mg PO DAILY 06/03/20 09/27/20 Unknown History Citalopram [celeXA] 20 mg PO QDAY 06/03/20 09/27/[address] [DepManuelTE DR] 500 mg PO BID 06/03/20 09/27/20 Unknown History Losartan [Cozaar] 25 mg PO QDAY 06/03/20 09/27/20 Unknown History Ziprasidone [Geodon] 40 mg PO DAILY 06/03/20 09/27/20 Unknown History traMADoL [Ultram] 50 mg PO Q4HR PRN 06/03/20 09/27/20 Unknown History HYDROcodone/APAP 5-325 [[place] 1 each PO Q6HR PRN #12 tablet 09/23/20 Unknown Rx 5/325] Ondansetron [Zofran Odt] 4 mg PO Q4HR PRN #20 tab.rapdis 09/23/20 Unknown Rx Furosemide [Lasix TAB] 40 mg PO QDAY #30 tablet 10/03/20 Unknown Rx Review of Systems All systems: negative Cardiovascular: orthopnea, edema, shortness of breath, dyspnea on exertion Respiratory: shortness of breath, dyspnea on exertion Exam - Constitutional Vitals: Temp Pulse Resp BP Pulse Ox 98 F 81 16 161/70 88 07/05/21 22:36 07/05/21 23:18 07/05/21 23:18 07/05/21 22:36 07/06/21 00:45 - Respiratory Respiratory: bilateral: rales HEART Score - HEART Score Troponin: Troponin T < 0.010 ng/mL (0.00-0.029) 07/06/21 Unknown Results - Labs CBC & Chem 7: 07/05/21 23:13 07/05/21 23:13 Labs: Laboratory Last Values WBC 11.4 K/mm3 (4.5-11.0) H 07/05/21 23:13 RBC 3.67 M/mm3 (3.65-5.03) 07/05/21 23:13 Hgb 10.5 gm/dl (10.1-14.3) 07/05/21 23:13 Hct 32.6 % (30.3-42.9) 07/05/21 23:13 MCV 89 fl (79-97) 07/05/21 23:13 MCH 29 pg (28-32) 07/05/21 23:13 MCHC 32 % (30-34) 07/05/21 23:13 RDW 16.7 % (13.2-15.2) H 07/05/21 23:13 Plt Count 246 K/mm3 (140-440) 07/05/21 23:13 Lymph % (Auto) 25.0 % (13.4-35.0) 07/05/21 23:13 [place] % (Auto) 4.5 % (0.0-7.3) 07/05/21 23:13 Eos % (Auto) 2.1 % (0.0-4.3) 07/05/21 23:13 Baso % (Auto) 0.9 % (0.0-1.8) 07/05/21 23:13 Lymph # (Auto) 2.8 K/mm3 (1.2-5.4) 07/05/21 23:13 [place] # (Auto) 0.5 K/mm3 (0.0-0.8) 07/05/21 23:13 Eos # (Auto) 0.2 K/mm3 (0.0-0.4) 07/05/21 23:13 Baso # (Auto) 0.1 K/mm3 (0.0-0.1) 07/05/21 23:13 Seg Neutrophils % 67.5 % (40.0-70.0) 07/05/21 23:13 Seg Neutrophils # 7.7 K/mm3 (1.8-7.7) 07/05/21 23:13 ABG pH 7.339 pH Units (7.350-7.450) L 07/06/21 03:30 ABG pCO2 49.2 mm Hg 07/06/21 03:30 ABG pO2 45.4 mm Hg (80.0-90.0) L 07/06/21 03:30 ABG HCO3 25.9 mmol/L (20.0-26.0) 07/06/21 03:30 ABG O2 Saturation 80.4 % (95.0-99.0) L 07/06/21 03:30 ABG O2 Content 12.2 (0.0-44) 07/06/21 03:30 ABG Base Excess -0.3 mmol/L (-2.0-3.0) 07/06/21 03:30 ABG Hemoglobin 11.4 gm/dl (12.0-16.0) L 07/06/21 03:30 ABG Carboxyhemoglobin 4.7 % (0.0-5.0) 07/06/21 03:30 ABG Methemoglobin 0.5 % (0.0-1.5) 07/06/21 03:30 Oxyhemoglobin 76.1 % (95.0-99.0) L 07/06/21 03:30 FiO2 21 % 07/06/21 03:30 Sodium 141 mmol/L (137-145) 07/05/21 23:13 Potassium 4.4 mmol/L (3.6-5.0) 07/05/21 23:13 Chloride 103.5 mmol/L (98-107) 07/05/21 23:13 Carbon Dioxide 24 mmol/L (22-30) 07/05/21 23:13 Anion Gap 18 mmol/L 07/05/21 23:13 BUN 19 mg/dL (7-17) H 07/05/21 23:13 Creatinine 1.2 mg/dL (0.6-1.2) 07/05/21 23:13 Estimated GFR 56 ml/min 07/05/21 23:13 BUN/Creatinine Ratio 16 % 07/05/21 23:13 Glucose 249 mg/dL (65-100) H 07/05/21 23:13 Calcium 9.2 mg/dL (8.4-10.2) 07/05/21 23:13 Troponin T < 0.010 ng/mL (0.00-0.029) 07/06/21 Unknown NT-Pro-B Natriuret Pep 712.8 pg/mL (0-900) 07/06/21 03:11 - Imaging and Cardiology Chest x-ray: report reviewed Assessment and Plan VTE prophylaxis?: Chemical Plan of care discussed with patient/family: Yes - Patient Problems (1) Acute respiratory failure with hypoxia Current Visit: Yes Status: Acute Plan to address problem: Admit the patient to the medical telemetry. Oxygen per nasal cannula 3 L/min. DuoNeb by nebulizer every 4 hours. Albuterol via nebulizer every 4 hours as needed. Solu-Medrol 40 mg IV daily (2) COPD exacerbation Current Visit: Yes Status: Acute Plan to address problem: Oxygen per nasal cannula 3 L/min. DuoNeb by nebulizer every 4 hours. Albuterol via nebulizer every 4 hours as needed. Solu-Medrol 40 mg IV daily (3) Pulmonary edema Current Visit: Yes Status: Acute Plan to address problem: Cardiac diet. Fluid restriction. Maintain input output. Daily weight. Lasix 40 mg IV daily. Echocardiogram (4) History of DVT (deep vein thrombosis) Current Visit: Yes Status: Acute Plan to address problem: Stable. We will continue the home medication (5) Schizophrenia Current Visit: No Status: Chronic Qualifiers: Schizophrenia type: unspecified Qualified Code(s): F20.9 - Schizophrenia, unspecified Plan to address problem: Stable. We will continue the home medication. Outpatient follow-up with psychiatry (6) Gout flare Current Visit: Yes Status: Acute Plan to address problem: Colchicine 0.6 mg p.o. twice daily. We continue the home medication (7) DVT prophylaxis Current Visit: No Status: Acute Plan to address problem: Heparin 5000 units subcu every 12 hours for DVT prophylaxis. Pepcid 20 mg p.o. twice daily for GI prophylaxis. Patient is a full code
[2021-07-06] MEDS ORDERED: FUROSEMIDE 40 MG/4 ML INJ IV SCH (07:00)
[2021-07-06] MEDS: IPRATROPIUM/ALBUTEROL SULFATE 3 ML AMPUL.NEB IH SCH ×2 (08:55→14:08)
[2021-07-06] MEDS ORDERED: CITALOPRAM 20 MG TAB PO SCH (10:00)
[2021-07-06] MEDS ORDERED: FAMOTIDINE 20 MG TAB PO SCH (10:00)
[2021-07-06] MEDS ORDERED: DIVALPROEX DR 500 MG TAB PO SCH (10:00)
[2021-07-06] MEDS ORDERED: CITALOPRAM HYDROBROMIDE 40 MG PO SCH (10:00)
[2021-07-06] MEDS ORDERED: levoFLOXacin 500 MG TAB PO SCH (10:00)
[2021-07-06] MEDS ORDERED: LOSARTAN 25 MG TAB PO SCH (10:00)
[2021-07-06] MEDS ORDERED: ZIPRASIDONE 40 MG CAP PO SCH (10:00)
[2021-07-06] MEDS ORDERED: COLCHICINE 0.6 MG TAB PO SCH (10:00)
[2021-07-06] MEDS ORDERED: HEPARIN 5,000 UNIT/1 ML VIAL SUB-Q SCH (10:00)
[2021-07-06 12:56] VITALS: BP 170/71
--- NOTE | 2021-07-06 13:45 | Discharge Summary ---
Providers - Providers Date of Admission: 07/06/21 05:17 Date of discharge: 07/06/21 Attending physician: GLO GROVES MD Primary care physician: ANGELLA FERREIRA Hospitalization Reason for admission: Acute asthma exacerbation, acute hypoxic respiratory failure Condition: Stable Pertinent studies: Reviewed. Procedures: None. Hospital course: Patient is a 55-year-old female past medical history of asthma without previous intubations, obesity hypoventilation syndrome, recent DVT (currently on Eliquis 5 mg twice daily), whp-oyswrfg-wtmsumgwy type 2 diabetes mellitus, hypertension, schizophrenia, and neuropathy who presented to the ED for complaints of wheezing and shortness of breath over the previous day. The patient endorsed running out of her nebulizers and inhaler. The patient was found to be hemodynamically stable on presentation in the ED. She received a total of magnesium 2 g, Solu- Medrol 125 mg x 1, and albuterol 5 mg inhaled with reported improvement in symptoms. Patient endorsed residual moderate chest tightness with inspiration secondary to her asthma and mild abdominal pain secondary to a dry cough. With further questioning, the patient endorsed having a gout flare for the previous 2 weeks. The patient was admitted for further management with supplemental oxygen. The patient has since been weaned off of supplemental oxygen, and she endorses resolution of her symptoms. Patient was counseled about following up with her primary care provider, and she expressed understanding. Patient is medically clear for discharge. Disposition: 01 HOME / SELF CARE / HOMELESS Final Discharge Diagnosis (Prints w/discharge instructions): Acute asthma exacerbation, acute hypoxic respiratory failure, history of DVT on anticoagulation, obesity hypoventilation syndrome, cyq-gfhxkvy-ptbzyhgga type 2 diabetes mellitus with hyperglycemia, hypertension, schizophrenia, neuropathy, morbid obesity Time spent for discharge: 45 min Core Measure Documentation - Palliative Care Palliative Care/ Comfort Measures: Not Applicable - Core Measures Any of the following diagnoses?: none Exam - Constitutional Vitals: Temp Pulse Resp BP Pulse Ox 98.1 F 86 18 170/71 97 07/06/21 08:15 07/06/21 11:59 07/06/21 11:59 07/06/21 11:59 07/06/21 11:59 General appearance: Present: no acute distress, well-nourished, obese - EENT Eyes: Present: PERRL, EOM intact ENT: hearing intact, clear oral mucosa, dentition normal - Neck Neck: Present: supple, normal ROM - Respiratory Respiratory effort: normal Respiratory: bilateral: diminished - Cardiovascular Rhythm: regular Heart Sounds: Present: S1 & S2 - Extremities Extremities: no ischemia, pulses intact, pulses symmetrical, No edema, normal temperature, normal color, Full ROM Peripheral Pulses: within normal limits - Abdominal General gastrointestinal: Present: soft, non-tender, non-distended, normal bowel sounds Female genitourinary: Present: deferred - Rectal Rectal Exam: deferred - Integumentary Integumentary: Present: clear, warm, dry - Musculoskeletal Musculoskeletal: strength equal bilaterally - Psychiatric Psychiatric: appropriate mood/affect, intact judgment & insight, memory intact, cooperative - Neurologic Neurologic: CNII-XII intact, moves all extremities - Allied Health Allied health notes reviewed: nursing Plan Activity: no restrictions Diet: low salt, diabetic Additional Instructions: Patient is a 55-year-old female past medical history of asthma without previous intubations, obesity hypoventilation syndrome, recent DVT (currently on Eliquis 5 mg twice daily), qti-vjgxfbq-bzxnxeune type 2 diabetes mellitus, hypertension, schizophrenia, and neuropathy who presented to the ED for complaints of wheezing and shortness of breath over the previous day. The patient endorsed running out of her nebulizers and inhaler. The patient was found to be hemodynamically stable on presentation in the ED. She received a total of magnesium 2 g, Solu-Medrol 125 mg x 1, and albuterol 5 mg inhaled with reported improvement in symptoms. Patient endorsed residual moderate chest tightness with inspiration secondary to her asthma and mild abdominal pain secondary to a dry cough. With further questioning, the patient endorsed having a gout flare for the previous 2 weeks. The patient was admitted for further management with supplemental oxygen. The patient has since been weaned off of supplemental oxygen, and she endorses resolution of her symptoms. Patient was counseled about following up with her primary care provider, and she expressed understanding. Patient is medically clear for discharge. Care Plan Goals: Patient is medically clear for discharge. Assessment: Patient is a 55-year-old female past medical history of asthma without previous intubations, obesity hypoventilation syndrome, recent DVT (currently on Eliquis 5 mg twice daily), kcw-qlpmebs-slabyqlyn type 2 diabetes mellitus, hypertension, schizophrenia, and neuropathy who presented to the ED for complaints of wheezing and shortness of breath over the previous day. The patient endorsed running out of her nebulizers and inhaler. The patient was found to be hemodynamically stable on presentation in the ED. She received a total of magnesium 2 g, Solu- Medrol 125 mg x 1, and albuterol 5 mg inhaled with reported improvement in symptoms. Patient endorsed residual moderate chest tightness with inspiration secondary to her asthma and mild abdominal pain secondary to a dry cough. With further questioning, the patient endorsed having a gout flare for the previous 2 weeks. The patient was admitted for further management with supplemental oxygen. The patient has since been weaned off of supplemental oxygen, and she endorses resolution of her symptoms. Patient was counseled about following up with her primary care provider, and she expressed understanding. Patient is medically clear for discharge. Follow up with: ANGELLA FERREIRA MD [Primary Care Provider] - 7 Days Forms: Work/School Release Form Prescriptions: Citalopram Hydrobromide [celeXA] 40 mg PO DAILY #30 tab Colchicine [Colcrys] 0.6 mg PO BID #30 tablet Losartan [Cozaar] 25 mg PO QDAY #[address] [Depakote Dr] 500 mg PO BID #60 tab Ziprasidone [Geodon] 40 mg PO DAILY #30 cap
[2021-07-07] MEDS ORDERED: FUROSEMIDE 40 MG/4 ML INJ IV SCH (10:00)
--- NOTE | 2021-07-08 11:59 | Electrocardiograph Report ---
[facility] Test Date: 2021-07-06 Test Time: 04:01:03 Pat Name: RADHA MARKS Department: Room: A474 1 Gender: F [employer]: [id number] : [id number] Requested By: JAX WILLARD Order Number: [id number] Reading MD: Martell Wadsworth Measurements Intervals [place] Rate: 94 P: 70 ID: [id number] QRS: 35 QRSD: 82 T: 104 QT: 399 QTc: 499 Interpretive Statements Sinus rhythm Nonspecific T abnormalities, lateral leads Compared to ECG 09/27/2020 12:15:15 No significant changes Electronically Signed On 07-08-2021 11:59:03 EDT by Martell Wadsworth
== END 2021-07-06 16:10 | disposition home or self-care (01) ==
LOC: ED 22:19 → 4A 07-06 05:17 → INTOOBSV 07-06 05:17 → 4A 07-06 06:41
PROVIDERS: ADMIT Hospitalist; ATTEND Student in an Organized Health Care Education/Training Program
DX: J96.01 Acute respiratory failure with hypoxia (principal); J44.1 Chronic obstructive pulmonary disease with (acute) exacerbation; J81.1 Chronic pulmonary edema; F20.9 Schizophrenia, unspecified; M10.9 Gout, unspecified; I10 Essential (primary) hypertension; E11.9 Type 2 diabetes mellitus without complications; E78.5 Hyperlipidemia, unspecified; Z86.718 Personal history of other venous thrombosis and embolism; Z90.49 Acquired absence of other specified parts of digestive tract; Z98.891 History of uterine scar from previous surgery; Z98.51 Tubal ligation status; Z79.899 Other long term (current) drug therapy; Z98.890 Other specified postprocedural states; Z79.01 Long term (current) use of anticoagulants
CPT/HCPCS: 36415; 71045; 80048; 82803; 83880; 84484; 85025; 93005; 94640; 94644; 94760; 96365; 96372; 96375; 99291; C8929; G0378; J1644; J1940; J3475; 93306

== ENCOUNTER 2021-07-23 21:01 | Emergency (ER) | payer MEDICARE ==
--- NOTE | 2021-07-23 22:43 | Emergency Department Report ---
ED General Adult HPI - General Chief complaint: Extremity Problem,Nontraumatic Stated complaint: LEFT LEG PAIN Time Seen by Provider: 07/23/21 22:09 Source: patient, EMS ( EMS documentation not available at time of chart dictation ), RN notes reviewed, old records reviewed Mode of arrival: Stretcher Limitations: No Limitations - History of Present Illness Initial comments: The patient was evaluated in the emergency department for symptoms described in the history of present illness. He/she was evaluated in the context of the global COVID-19 pandemic, which necessitated consideration that the patient might be at risk for infection with the virus that causes COVID-19. Institutional protocols and algorithms that pertain to the evaluation of patie nts at risk for COVID-19 are in a state of rapid change based on information released by regulatory bodies including the CDC and federal and state organizations. These policies and algorithms were followed during the patient's care in the emergency department. Please note that these policies, procedures and recommendations changed on a rapid basis. This is a 55-year-old female. Her past medical history includes asthma, no intubations, obesity hypoventilation syndrome, history of DVT, currently on Eliquis, type 2 diabetes, hypertensions, schizophrenia, and neuropathy. The patient presents to the ER today with a primary complaint of left lower leg pain, which encompasses her entire leg. She has been compliant with her Eliquis this entire month. She reports missing a few doses last month, while in [facility]. She had a CT angiogram of her chest in 2020 which was negative for PE. In 2020, she had a lower extremity DVT study, which demonstrated a chronic DVT. The patient also complains of lower abdominal cramping without dysuria. She also complains of cough, wheezing, and chest wall pain. She is not homicidal or suicidal. -: week(s) Location: chest, abdomen, left, right, lower extremity Severity scale (0 -10): 0 Quality: aching Consistency: constant Improves with: rest Worsens with: movement - Related Data Home Medications Medication Instructions Recorded Confirmed Last Taken Citalopram [Celexa] 20 mg PO QDAY 06/03/20 09/27/20 Unknown Previous Rx's Medication Instructions Recorded Last Taken Type Ondansetron [Zofran ODT TAB] 4 mg PO Q4HR PRN #20 tab.rapdis 09/23/20 Unknown Rx Furosemide [Lasix TAB] 40 mg PO QDAY #30 tablet 10/03/20 Unknown Rx Citalopram Hydrobromide [celeXA] 40 mg PO DAILY #30 tab 07/06/21 Unknown Rx Colchicine [Colcrys] 0.6 mg PO BID #30 tablet 07/06/[address] [Depakote Dr] 500 mg PO BID #60 tab 07/06/21 Unknown Rx Losartan [Cozaar] 25 mg PO QDAY #30 tab 07/06/21 Unknown Rx Ziprasidone [Geodon] 40 mg PO DAILY #30 cap 07/06/21 Unknown Rx Acetaminophen [Non-Aspirin Extra 500 mg PO Q6HR PRN #30 tablet 07/24/21 Unknown Rx Strength] Albuterol Sulfate [Proair 90 mcg IH Q4HR PRN #2 aer.pow.ba 07/24/21 Unknown Rx Respiclick] Ipratropium (Nf) [Atrovent] 2 puff IH Q6HR PRN #1 inha 07/24/21 Unknown Rx predniSONE [Deltasone] 40 mg PO QDAY #8 tab 07/24/21 Unknown Rx Allergies Allergy/AdvReac Type Severity Reaction Status Date / Time hydrocortisone Allergy Unknown Verified 07/23/21 23:09 [From [facility]] ibuprofen Allergy Itching Verified 07/23/21 23:09 Ear drops Allergy Unknown Uncoded 07/23/21 23:09 ED Review of Systems ROS: Stated complaint: LEFT LEG PAIN Other details as noted in HPI Constitutional: denies: fever Eyes: denies: eye discharge ENT: denies: epistaxis Respiratory: cough, shortness of breath, SOB with exertion, SOB at rest, w heezing Cardiovascular: chest pain Gastrointestinal: abdominal pain. denies: hematemesis, melena, hematochezia Genitourinary: denies: dysuria Musculoskeletal: back pain, arthralgia, myalgia Neurological: denies: weakness Psychiatric: denies: homicidal thoughts, suicidal thoughts ED Past Medical Hx - Past Medical History Previous Medical History?: Yes Hx Hypertension: Yes Hx Congestive Heart Failure: No Hx Diabetes: Yes Hx Deep Vein Thrombosis: Yes Hx Seizures: Yes Hx Psychiatric Treatment: Yes (schizophrenia) Hx Asthma: No Hx COPD: No Additional medical history: Neuropathy, Hyperlipidemia - Surgical History Past Surgical History?: Yes Hx Cholecystectomy: Yes Additional Surgical History: , L rotary cuff, tubal ligation - Social History Smoking Status: Unknown if ever smoked - Medications Home Medications: Home Medications Medication Instructions Recorded Confirmed Last Taken Type Citalopram [Celexa] 20 mg PO QDAY 06/03/20 09/27/20 Unknown History Ondansetron [Zofran ODT TAB] 4 mg PO Q4HR PRN #20 tab.rapdis 09/23/20 Unknown Rx Furosemide [Lasix TAB] 40 mg PO QDAY #30 tablet 10/03/20 Unknown Rx Citalopram Hydrobromide [celeXA] 40 mg PO DAILY #30 tab 07/06/21 Unknown Rx Colchicine [Colcrys] 0.6 mg PO BID #30 tablet 07/06/[address] [Depakote Dr] 500 mg PO BID #60 tab 07/06/21 Unknown Rx Losartan [Cozaar] 25 mg PO QDAY #30 tab 07/06/21 Unknown Rx Ziprasidone [Geodon] 40 mg PO DAILY #30 cap 07/06/21 Unknown Rx Acetaminophen [Non-Aspirin Extra 500 mg PO Q6HR PRN #30 tablet 07/24/21 Unknown Rx Strength] Albuterol Sulfate [Proair 90 mcg IH Q4HR PRN #2 aer.pow.ba 07/24/21 Unknown Rx Respiclick] Ipratropium (Nf) [Atrovent] 2 puff IH Q6HR PRN #1 inha 07/24/21 Unknown Rx predniSONE [Deltasone] 40 mg PO QDAY #8 tab 07/24/21 Unknown Rx ED Physical Exam - General Limitations: No Limitations General appearance: alert, in no apparent distress, obese - Head Head exam: Present: atraumatic, normocephalic - Eye Eye exam: Present: normal appearance, EOMI. Absent: nystagmus - ENT ENT exam: Present: normal exam, normal orophraynx, mucous membranes moist, normal external ear exam - Neck Neck exam: Present: normal inspection, full ROM. Absent: tenderness, meningismus - Respiratory Respiratory exam: Present: wheezes, chest wall tenderness. Absent: respiratory distress, rales, rhonchi - Cardiovascular Cardiovascular Exam: Present: regular rate, normal rhythm, normal heart sounds. Absent: bradycardia, tachycardia, irregular rhythm, systolic murmur, diastolic murmur, rubs, gallop - GI/Abdominal GI/Abdominal exam: Present: soft, tenderness. Absent: distended, guarding, rebound, rigid, pulsatile mass - Extremities Exam Extremities exam: Present: normal inspection, full ROM, pedal edema, other (2+ pulses noted in the bilateral upper and lower extremities. There is no long bony tenderness. The muscular compartments are soft. Venous stasis noted in the bilateral lower extremities. There is no palpable cord. Allodynia noted in the lower extremities). Absent: calf tenderness - Back Exam Back exam: Present: normal inspection. Absent: tenderness, CVA tenderness (R), CVA tenderness (L), paraspinal tenderness, vertebral tenderness - Neurological Exam Neurological exam: Present: alert, oriented X3, other (No facial droop. Tongue midline. Extraocular movements intact bilaterally. Facial sensation intact to light touch in V1, V2, V3 distribution bilaterally. 5 and a 5 strength in 4 extremities. Sensation intact to light touch in 4 extremities.). Absent: motor sensory deficit - Psychiatric Psychiatric exam: Absent: homicidal ideation, suicidal ideation - Skin Skin exam: Present: warm, dry, intact, normal color. Absent: rash ED Course Vital Signs 07/23/21 07/23/21 07/23/21 21:32 22:13 23:09 Temperature 98.1 F Pulse Rate 77 72 Pulse Rate [ 72 Anterior Bilateral Throughout] Respiratory 16 16 Rate Respiratory 18 Rate [Anterior Bilateral Throughout] Blood Pressure 190/80 Blood Pressure 111/74 [Left] O2 Sat by Pulse 100 94 Oximetry 07/24/21 07/24/21 00:56 00:57 Temperature 98.0 F Pulse Rate 86 Pulse Rate [ Anterior Bilateral Throughout] Respiratory 16 Rate Respiratory Rate [Anterior Bilateral Throughout] Blood Pressure Blood Pressure 179/77 [Left] O2 Sat by Pulse 96 96 Oximetry - Reevaluation(s) Reevaluation #1: 07/24/21 00:33 Differential diagnosis, including not limited to: DVT, pulmonary embolism, costochondritis, acute coronary syndrome, bronchitis, neuropathy, colitis, d iverticulitis, renal colic, UTI Assessment and plan: 55-year-old female with multiple complaints. Her first complaint is lower extremity pain in her left leg. This is likely neuropathy. She is not currently tachycardic, tachypneic or hypoxic. Her D- dimer is negative, and she has been compliant with her Eliquis this entire month. I find her to be loW pre and posttest probability for lower extremity DVT. In terms of her chest pain, she does have a component of reproducible chest chest wall pain, in terms of cough and wheezing. Troponin negative x1, D-dimer negative, therefore, do not obtain CT scan of the chest, as I find this patient to be low pre and protest probability for PE I suspect costochondritis, with bronchitis. Obtain x-ray of the chest. She was given albuterol, Atrovent, and steroids. She reports that she is not allergic to steroids. Given her complaint of abdominal pain, we will obtain CT scan of the abdomen pelvis. Have requested urinalysis. Repeat EKG, and repeat troponin pending. Patient treated with albuterol, Atrovent, steroids, Tylenol, gabapentin, and Protonix. She is currently resting comfortably, on her stretcher, and in no acute distress. 07/24/21 01:33 Patient resting comfortably in stretcher. Repeat EKG is unchanged from prior. Urinalysis, repeat troponin pending. 07/24/21 04:14 Troponin negative on final reassessment. Resting comfortably in stretcher. May be discharged. ED Medical Decision Making - Lab Data Result diagrams: 07/23/21 22:51 07/23/21 22:51 Vital Signs 07/23/21 07/23/21 07/23/21 21:32 22:13 23:09 Temperature 98.1 F Pulse Rate 77 72 Pulse Rate [ 72 Anterior Bilateral Throughout] Respiratory 16 16 Rate Respiratory 18 Rate [Anterior Bilateral Throughout] Blood Pressure 190/80 Blood Pressure 111/74 [Left] O2 Sat by Pulse 100 94 Oximetry Lab Results 07/23/21 07/23/21 07/23/21 Range/Units 22:51 22:51 22:51 WBC 9.1 (4.5-11.0) K/mm3 RBC 4.24 (3.65-5.03) M/mm3 Hgb 12.2 (10.1-14.3) gm/dl Hct 37.5 (30.3-42.9) % MCV 89 (79-97) fl MCH 29 (28-32) pg MCHC 33 (30-34) % RDW 15.4 H (13.2-15.2) % Plt Count 255 (140-440) K/mm3 PT 12.9 (12.2-14.9) Sec. INR 0.88 (0.87-1.13) D-Dimer 181.53 (0-234) ng/mlDDU Sodium 137 (137-145) mmol/L Potassium 4.2 (3.6-5.0) mmol/L Chloride 100.5 (98-107) mmol/L Carbon Dioxide 26 (22-30) mmol/L Anion Gap 15 mmol/L BUN 21 H (7-17) mg/dL Creatinine 0.9 (0.6-1.2) mg/dL Estimated GFR > 60 ml/min BUN/Creatinine Ratio 23 % Glucose 220 H (65-100) mg/dL Calcium 9.2 (8.4-10.2) mg/dL Magnesium 1.70 (1.7-2.3) mg/dL Total Bilirubin 0.20 (0.1-1.2) mg/dL AST 12 (5-40) units/L ALT 11 (7-56) units/L Alkaline Phosphatase 79 (35-129) units/L Total Creatine Kinase 63 (30-135) units/L Troponin T < 0.010 (0.00-0.029) ng/mL Total Protein 7.2 (6.3-8.2) g/dL Albumin 3.8 L (3.9-5) g/dL Albumin/Globulin Ratio 1.1 % Salicylates (2.8-20.0) mg/dL Acetaminophen (10.0-30.0) ug/mL Valproic Acid (50-100) ug/mL Plasma/Serum Alcohol (0-0.07) % 07/23/21 07/23/21 07/23/21 Range/Units 22:51 22:51 22:51 WBC (4.5-11.0) K/mm3 RBC (3.65-5.03) M/mm3 Hgb (10.1-14.3) gm/dl Hct (30.3-42.9) % MCV (79-97) fl MCH (28-32) pg MCHC (30-34) % RDW (13.2-15.2) % Plt Count (140-440) K/mm3 PT (12.2-14.9) Sec. INR (0.87-1.13) D-Dimer (0-234) ng/mlDDU Sodium (137-145) mmol/L Potassium (3.6-5.0) mmol/L Chloride (98-107) mmol/L Carbon Dioxide (22-30) mmol/L Anion Gap mmol/L BUN (7-17) mg/dL Creatinine (0.6-1.2) mg/dL Estimated GFR ml/min BUN/Creatinine Ratio % Glucose (65-100) mg/dL Calcium (8.4-10.2) mg/dL Magnesium (1.7-2.3) mg/dL Total Bilirubin (0.1-1.2) mg/dL AST (5-40) units/L ALT (7-56) units/L Alkaline Phosphatase (35-129) units/L Total Creatine Kinase (30-135) units/L Troponin T (0.00-0.029) ng/mL Total Protein (6.3-8.2) g/dL Albumin (3.9-5) g/dL Albumin/Globulin Ratio % Salicylates < 0.3 L (2.8-20.0) mg/dL Acetaminophen 5.0 L (10.0-30.0) ug/mL Valproic Acid < 2.8 L (50-100) ug/mL Plasma/Serum Alcohol < 0.01 (0-0.07) % 07/23/21 Range/Units 22:51 WBC (4.5-11.0) K/mm3 RBC (3.65-5.03) M/mm3 Hgb (10.1-14.3) gm/dl Hct (30.3-42.9) % MCV (79-97) fl MCH (28-32) pg MCHC (30-34) % RDW (13.2-15.2) % Plt Count (140-440) K/mm3 PT (12.2-14.9) Sec. INR (0.87-1.13) D-Dimer (0-234) ng/mlDDU Sodium (137-145) mmol/L Potassium (3.6-5.0) mmol/L Chloride (98-107) mmol/L Carbon Dioxide (22-30) mmol/L Anion Gap mmol/L BUN (7-17) mg/dL Creatinine (0.6-1.2) mg/dL Estimated GFR ml/min BUN/Creatinine Ratio % Glucose (65-100) mg/dL Calcium (8.4-10.2) mg/dL Magnesium (1.7-2.3) mg/dL Total Bilirubin (0.1-1.2) mg/dL AST (5-40) units/L ALT (7-56) units/L Alkaline Phosphatase (35-129) units/L Total Creatine Kinase (30-135) units/L Troponin T < 0.010 (0.00-0.029) ng/mL Total Protein (6.3-8.2) g/dL Albumin (3.9-5) g/dL Albumin/Globulin Ratio % Salicylates (2.8-20.0) mg/dL Acetaminophen (10.0-30.0) ug/mL Valproic Acid (50-100) ug/mL Plasma/Serum Alcohol (0-0.07) % - EKG Data -: EKG Interpreted by Ak EKG shows normal: sinus rhythm Rate: normal - EKG Data When compared to previous EKG there are: previous EKG unavailable 07/24/21 00:22 The EKG is interpreted at 22: 06 Sinus rhythm, 74 bpm. Normal axis, normal P wave axis, QTC 4 7 7 ms, nonspecific T wave abnormalities. This is an abnormal EKG. This is not a STEMI. This appears to be grossly unchanged when compared to prior EKG from June 2021, with the exception of some nonspecific ST flattening in the anteroseptal leads. - Radiology Data Radiology results: pending, report reviewed, image reviewed CTA CHEST WITH IV CONTRAST INDICATION: Respiratory Distress. TECHNIQUE: Axial CT images were obtained through the chest after injection of 100 cc IV contrast. 3 plane MIP reconstructions were produced. All CT scans at this location are performed using CT dose reduction for ALARA by means of automated exposure control. COMPARISON: None available. FINDINGS: PULMONARY ARTERIES: No pulmonary emboli. THORACIC AORTA: No acute abnormality. HEART: Normal. CORONARY ARTERIES: No significant calcification. PLEURA: No pleural effusion. No pneumothorax. LYMPH NODES: No significant adenopathy. LUNGS: Moderate bilateral streaky groundglass parenchymal disease characteristic for Covid pneumonia ADDITIONAL FINDINGS: None. UPPER ABDOMEN: Gallbladder surgically absent. Hepati c Steatosis SKELETAL STRUCTURES: No significant osseous abnormality. IMPRESSION: 1. No CT evidence for pulmonary embolism. 2. Bilateral Covid pneumonia Signer Name: Kanu Gaitan MD Signed: 09/30/2020 12:07 AM Workstation Name: [id number] [facility] [address] [place] [address] Vascular Lab Report Signed Patient: RADHA MARKS MR#: [id number] : 1965 Acct:[id number] Age/Sex: 54 / F ADM Date: 09/23/20 Loc: ED At [facility] Dr: Ordering Physician: ISABEL DODSON NP Date of Service: 09/23/20 Procedure(s): VL venous duplex LE BIL Accession Number(s): [id number] cc: ISABEL DODSON NP DUPLEX DOPPLER LOWER EXTREMITY VEINS, BILATERAL INDICATION / CLINICAL INFORMATION: bilateral leg pain and swelling w/ hx of DVT. TECHNIQUE: Duplex doppler imaging was performed through the veins of both lower extremities using venous compression and other maneuvers. COMPARISON: None available. FINDINGS: RIGHT COMMON FEMORAL VEIN: Negative. RIGHT FEMORAL VEIN: Negative. RIGHT POPLITEAL VEIN: Negative. RIGHT CALF VEINS: Negative. LEFT COMMON FEMORAL VEIN: Chronic thrombus. No acute thrombus. LEFT FEMORAL VEIN: Negative. LEFT POPLITEAL VEIN: Negative. LEFT CALF VEINS: Negative. ADDITIONAL FINDINGS: None. IMPRESSION: 1. Negative for acute deep venous thrombosis. 2. Chronic DVT within the left common femoral vein with recanalization of the vein. Signer Name: Riki Benjamin MD Signed: 09/23/2020 11:49 AM Workstation Name: [id number] Transcribed By: SB Dictated By: RIKI BENJAMIN MD Electronically Authenticated By: RIKI BENJAMIN MD Signed Date/Time: 09/23/20 1149 DD/ 1147 CT ABDOMEN AND PELVIS WITH CONTRAST INDICATION: abd pain hx of dvt. TECHNIQUE: Axial CT images were obtained through the abdomen and pelvis after IV contrast. All CT scans at this location are performed using CT dose reduction for ALARA by means of automated exposure control. COMPARISON: None available. FINDINGS: LOWER CHEST: No significant abnormality. LIVER: No significant abnormality. GALLBLADDER: Surgically absent BILE DUCTS: No significant abnormality. PANCREAS: No significant abnormality. SPLEEN: No significant abnormality. ADRENALS: No significant abnormality. RIGHT KIDNEY and URETER: No significant abnormality. LEFT KIDNEY and URETER: No significant abnormality. STOMACH and SMALL BOWEL: No significant abnormality. COLON: No significant abnormality. APPENDIX: No significant abnormality. PERITONEUM: No free fluid. No free air. No fluid collection. LYMPH NODES: No significant adenopathy. AORTA and ARTERIES: No significant abnormality. IVC and VEINS: Calcification left external iliac vein likely from chronic DVT. No acute DVT. URINARY BLADDER: No significant abnormality. REPRODUCTIVE ORGANS: No significant abnormality. ADDITIONAL FINDINGS: None. SKELETAL SYSTEM: No significant abnormality. IMPRESSION: 1. No significant abnormality. 2. Intraluminal calcification left external iliac vein from chronic DVT sequela. Signer Name: Kanu Gaitan MD Signed: 07/23/2021 11:50 PM Workstation Name: [id number] Critical care attestation.: If time is entered above; I have spent that time in minutes in the direct care of this critically ill patient, excluding procedure time. ED Disposition Clinical Impression: Chronic anticoagulation, COPD exacerbation, History of DVT (deep vein thrombosis), Neuropathic pain of both legs, Nonspecific chest pain, Abdominal pain Disposition: 01 HOME / SELF CARE / HOMELESS Is pt being admited?: No Does the pt Need Aspirin: No Condition: Good Instructions: Chronic Obstructive Pulmonary Disease (ED) Additional Instructions: Do not take metformin medication for the next 2 days, if patient takes this medication. Take the breathing medicine and steroids as directed. May take the Tylenol as needed for physical pain. Patient's lower extremity pain likely coming from neuropathic pain. Please continue outpatient medications. Please follow-up with a primary care doctor or automation mechanic within the next 3 to 5 days. Please return to the emergency room right away with new pain, worsened pain, migration of pain, projectile vomiting, change in mental status, confusion, inability tolerate liquid feeds, new, worsened or different symptoms not present on the initial emergency room evaluation Referrals: ANGELLA FERREIRA MD [Primary Care Provider] - 3-5 Days [facility] [Provider Group] - 3-5 Days [facility] [Provider Group] - 3-5 Days Heart Score - HEART Score History: Slightly suspicious EKG: Non-specific Age: 45-65 Risk factors: 1-2 risk factors Troponin: < normal limit HEART Score: 3 - EKG Read Time Time EKG Completed: 22:06 EKG Read Time: 22:06 - Critical Actions Critical Actions: 0-3 pts:0.9-1.7%risk of adverse cardiac event.Candidate for discharge
[2021-07-23] MEDS ORDERED: ALBUTEROL 2.5 MG/3 ML NEBU IH ONE (22:51)
[2021-07-23] MEDS ORDERED: IPRATROPIUM 0.02% NEBU 2.5 ML IH ONE (22:51)
[2021-07-23] MEDS ORDERED: methylPREDNISolone Sod Succinate 125 MG/2 ML INJ IV ONE (22:53)
[2021-07-23 23:30] LABS: Alanine Aminotransferase 11 units/L (7-56); Albumin 3.8 g/dL (3.9-5); BUN/Creatinine Ratio 23; Blood Urea Nitrogen 21 mg/dL (7-17); Calcium 9.2 mg/dL (8.4-10.2); Hemolysis Index 1
[2021-07-23 23:32] LABS: Hematocrit 37.5 % (30.3-42.9); Hemoglobin 12.2 gm/dl (10.1-14.3); Mean Corpuscular HGB Conc 33 % (30-34); Mean Corpuscular Volume 89 fl (79-97); Platelet Count 255 K/mm3 (140-440); Red Blood Count 4.24 M/mm3 (3.65-5.03); Red Cell Distribution Width 15.4 % (13.2-15.2)
[2021-07-23 23:44] LABS: INR 0.88 (0.87-1.13)
[2021-07-23] MEDS ORDERED: PANTOPRAZOLE 40 MG TAB PO ONE (23:56)
[2021-07-23] MEDS ORDERED: ACETAMINOPHEN 325 MG TAB PO STA (23:56)
[2021-07-23] MEDS ORDERED: GABAPENTIN 100 MG CAP PO ONE (23:56)
--- NOTE | 2021-07-24 00:55 | Cat Scan Report ---
CT ABDOMEN AND PELVIS WITH CONTRAST INDICATION: abd pain hx of dvt. TECHNIQUE: Axial CT images were obtained through the abdomen and pelvis after IV contrast. All CT scans at this location are performed using CT dose reduction for ALARA by means of automated exposure control. COMPARISON: None available. FINDINGS: LOWER CHEST: No significant abnormality. LIVER: No significant abnormality. GALLBLADDER: Surgically absent BILE DUCTS: No significant abnormality. PANCREAS: No significant abnormality. SPLEEN: No significant abnormality. ADRENALS: No significant abnormality. RIGHT KIDNEY and URETER: No significant abnormality. LEFT KIDNEY and URETER: No significant abnormality. STOMACH and SMALL BOWEL: No significant abnormality. COLON: No significant abnormality. APPENDIX: No significant abnormality. PERITONEUM: No free fluid. No free air. No fluid collection. LYMPH NODES: No significant adenopathy. AORTA and ARTERIES: No significant abnormality. IVC and VEINS: Calcification left external iliac vein likely from chronic DVT. No acute DVT. URINARY BLADDER: No significant abnormality. REPRODUCTIVE ORGANS: No significant abnormality. ADDITIONAL FINDINGS: None. SKELETAL SYSTEM: No significant abnormality. IMPRESSION: 1. No significant abnormality. 2. Intraluminal calcification left external iliac vein from chronic DVT sequela. Signer Name: Kanu Gaitan MD Signed: 07/24/2021 12:50 AM Workstation Name: [id number]
--- NOTE | 2021-07-24 01:33 | XRay Report ---
CHEST 1 VIEW INDICATION / CLINICAL INFORMATION: cp wheezing. COMPARISON: 07/06/2021 FINDINGS: SUPPORT DEVICES: None. HEART / MEDIASTINUM: No significant abnormality. LUNGS / PLEURA: Mild bibasilar parenchymal disease, almost resolved. No pneumothorax. ADDITIONAL FINDINGS: No significant additional findings. IMPRESSION: 1. Interval improvement. Mild residual bilateral lower lobe disease Signer Name: Kanu Gaitan MD Signed: 07/24/2021 1:28 AM Workstation Name: [id number]
[2021-07-24 01:36] LABS: Mucus,Urine FEW /HPF; WBC,Urine < 1.0 /HPF (0.0-6.0)
[2021-07-24 01:54] LABS: Bilirubin,Urine NEG (Negative); Blood,Urine NEG (Negative); Color,Urine Yellow (Yellow)
[2021-07-24 01:55] LABS: Urobilinogen,Urine < 2.0 mg/dL (<2.0)
[2021-07-24 04:37] VITALS: BP 160/90
--- NOTE | 2021-07-24 13:31 | Electrocardiograph Report ---
[facility] Test Date: 2021-07-23 Test Time: 22:06:54 Pat Name: RADHA MARKS Department: Room: Gender: F Electricity Trading Analyst: BELLE : 1965 Requested By: LESLIE BERRIOS Order Number: [id number] Reading MD: Sita Lacy Measurements Intervals [place] Rate: 74 P: 62 MI: 138 QRS: 42 QRSD: 82 T: 95 QT: 430 QTc: 477 Interpretive Statements Sinus rhythm Probable left atrial enlargement Nonspecific T abnormalities, lateral leads Compared to ECG 07/06/2021 04:01:03 No significant change Electronically Signed On 07-24-2021 13:31:18 EDT by Sita Lacy
--- NOTE | 2021-07-24 13:32 | Electrocardiograph Report ---
[facility] Test Date: 2021-07-24 Test Time: 01:05:23 Pat Name: RADHA MARKS Department: Room: Gender: F [employer] Member: BELLE : 1965 Requested By: LESLIE BERRIOS Order Number: [id number] Reading MD: Sita Lacy Measurements Intervals [place] Rate: 83 P: 44 MN: 157 QRS: 55 QRSD: 82 T: 26 QT: 430 QTc: 507 Interpretive Statements Sinus rhythm Probable left atrial enlargement Nonspecific T wave abnormality Compared to ECG 07/23/2021 22:06:54 No significant change Electronically Signed On 07-24-2021 13:32:39 EDT by Sita Lacy
== END 2021-07-24 05:03 | disposition home or self-care (01) ==
LOC: ED 21:01
DX: J44.9 Chronic obstructive pulmonary disease, unspecified (principal); M79.2 Neuralgia and neuritis, unspecified; R07.9 Chest pain, unspecified; R10.9 Unspecified abdominal pain; Z79.01 Long term (current) use of anticoagulants; Z86.718 Personal history of other venous thrombosis and embolism
CPT/HCPCS: 36415; 71045; 74177; 80053; 80164; 81001; 82550; 83735; 84484; 85027; 85379; 85610; 93005; 94640; 96374; 99285; J2930; Q9967; 80320; 94644; G0480

== ENCOUNTER 2021-09-02 18:13 | Emergency (ER) | payer MEDICARE ==
[2021-09-02 21:25] LABS: Eosinophils # (Auto) 0.3 K/mm3 (0.0-0.4); Eosinophils % (Auto) 2.9 % (0.0-4.3); Hematocrit 39.9 % (30.3-42.9); Hemoglobin 12.8 gm/dl (10.1-14.3); Lymphocytes # (Auto) 3.9 K/mm3 (1.2-5.4); Lymphocytes % (Auto) 35.2 % (13.4-35.0); Mean Corpuscular HGB Conc 32 % (30-34); Mean Corpuscular Volume 89 fl (79-97); Monocytes # (Auto) 0.7 K/mm3 (0.0-0.8); Monocytes % (Auto) 6.3 % (0.0-7.3); Platelet Count 210 K/mm3 (140-440); Red Blood Count 4.49 M/mm3 (3.65-5.03); Red Cell Distribution Width 15.3 % (13.2-15.2)
[2021-09-02 21:31] LABS: Alanine Aminotransferase 9 units/L (7-56); BUN/Creatinine Ratio 19; Blood Urea Nitrogen 27 mg/dL (7-17); Calcium 9.9 mg/dL (8.4-10.2); Hemolysis Index 16
[2021-09-03 08:10] VITALS: BP 164/64
[2021-09-03] MEDS ORDERED: INSULIN REGULAR, HUMAN 100 UNITS/1 ML SUB-Q ONE (09:43)
--- NOTE | 2021-09-03 10:22 | Emergency Department Report ---
ED General Adult HPI - General Chief complaint: Hyperglycemia Stated complaint: DIABETIC/BLOOD SUGAR HIGH Time Seen by Provider: 09/03/21 09:25 Source: patient Mode of arrival: Ambulatory Limitations: No Limitations - History of Present Illness Initial comments: 55-year-old black female with a past medical history of diabetes presents to the emergency department for evaluation of elevated blood sugar. She states that for the last several weeks she has had some increased thirst at home and she and feels like it is related to an elevated blood sugar. She states that for the last 3 months she has been out of her Lantus and Humalog insulin. She states that she initially did not have any money to get it filled but now she has money but needs a new prescription. She denies chest pain, shortness of breath, nausea, vomiting, dizziness, and diaphoresis. -: Gradual (Elevated blood sugar), week(s) Severity scale (0 -10): 0 Associated Symptoms: denies: confusion, chest pain, cough, diaphoresis, fever/chills, headaches, loss of appetite, malaise, nausea/vomiting, rash, sei zure, shortness of breath, syncope, weakness Treatments Prior to Arrival: none - Related Data Home Medications Medication Instructions Recorded Confirmed Last Taken Citalopram [Celexa] 20 mg PO QDAY 06/03/20 09/27/20 Unknown Previous Rx's Medication Instructions Recorded Last Taken Type Ondansetron [Zofran ODT TAB] 4 mg PO Q4HR PRN #20 tab.rapdis 09/23/20 Unknown Rx Furosemide [Lasix TAB] 40 mg PO QDAY #30 tablet 10/03/20 Unknown Rx Citalopram Hydrobromide [celeXA] 40 mg PO DAILY #30 tab 07/06/21 Unknown Rx Colchicine [Colcrys] 0.6 mg PO BID #30 tablet 07/06/[address] [Ha Gill] 500 mg PO BID #60 tab 07/06/21 Unknown Rx Losartan [Cozaar] 25 mg PO QDAY #30 tab 07/06/21 Unknown Rx Ziprasidone [Geodon] 40 mg PO DAILY #30 cap 07/06/21 Unknown Rx Acetaminophen [Non-Aspirin Extra 500 mg PO Q6HR PRN #30 tablet 07/24/21 Unknown Rx Strength] Albuterol Sulfate [Proair 90 mcg IH Q4HR PRN #2 aer.pow.ba 07/24/21 Unknown Rx Respiclick] Ipratropium (Nf) [Atrovent] 2 puff IH Q6HR PRN #1 inha 07/24/21 Unknown Rx predniSONE [Deltasone] 40 mg PO QDAY #8 tab 07/24/21 Unknown Rx Insulin Glargine [Lantus VIAL] 50 units SUB-Q QHS #1 vial 09/03/21 Unknown Rx Insulin Lispro See Protocol SQ TIDAC #1 vial 09/03/21 Unknown Rx Allergies Allergy/AdvReac Type Severity Reaction Status Date / Time hydrocortisone Allergy Unknown Verified 07/23/21 23:09 [From EarSol-[facility]] ibuprofen Allergy Itching Verified 07/23/21 23:09 Ear drops Allergy Unknown Uncoded 07/23/21 23:09 ED Review of Systems ROS: Stated complaint: DIABETIC/BLOOD SUGAR HIGH Other details as noted in HPI Comment: All other systems reviewed and negative Constitutional: denies: chills, fever, malaise, weakness Eyes: denies: vision change ENT: denies: congestion Respiratory: denies: cough, orthopnea, shortness of breath, SOB with exertion, SOB at rest, stridor, wheezing Cardiovascular: denies: chest pain, palpitations, dyspnea on exertion, orthopnea , edema, syncope, paroxysmal nocturnal dyspnea Endocrine: increased thirst Gastrointestinal: denies: abdominal pain, nausea, vomiting Genitourinary: denies: urgency, dysuria Musculoskeletal: denies: back pain Neurological: denies: headache, weakness ED Past Medical Hx - Past Medical History Previous Medical History?: Yes Hx Hypertension: Yes Hx Congestive Heart Failure: No Hx Diabetes: Yes Hx Deep Vein Thrombosis: Yes Hx Seizures: Yes Hx Psychiatric Treatment: Yes (schizophrenia) Hx Asthma: No Hx COPD: No Additional medical history: Neuropathy, Hyperlipidemia - Surgical History Past Surgical History?: Yes Hx Cholecystectomy: Yes Additional Surgical History: , L rotary cuff, tubal ligation - Social History Smoking Status: Never Smoker Substance Use Type: None - Medications Home Medications: Home Medications Medication Instructions Recorded Confirmed Last Taken Type Citalopram [Celexa] 20 mg PO QDAY 06/03/20 09/27/20 Unknown History Ondansetron [Zofran ODT TAB] 4 mg PO Q4HR PRN #20 tab.rapdis 09/23/20 Unknown Rx Furosemide [Lasix TAB] 40 mg PO QDAY #30 tablet 10/03/20 Unknown Rx Citalopram Hydrobromide [celeXA] 40 mg PO DAILY #30 tab 07/06/21 Unknown Rx Colchicine [Colcrys] 0.6 mg PO BID #30 tablet 07/06/[address] [Depakote Dr] 500 mg PO BID #60 tab 07/06/21 Unknown Rx Losartan [Cozaar] 25 mg PO QDAY #30 tab 07/06/21 Unknown Rx Ziprasidone [Geodon] 40 mg PO DAILY #30 cap 07/06/21 Unknown Rx Acetaminophen [Non-Aspirin Extra 500 mg PO Q6HR PRN #30 tablet 07/24/21 Unknown Rx Strength] Albuterol Sulfate [Proair 90 mcg IH Q4HR PRN #2 aer.pow.ba 07/24/21 Unknown Rx Respiclick] Ipratropium (Nf) [Atrovent] 2 puff IH Q6HR PRN #1 inha 07/24/21 Unknown Rx predniSONE [Deltasone] 40 mg PO QDAY #8 tab 07/24/21 Unknown Rx Insulin Glargine [Lantus VIAL] 50 units SUB-Q QHS #1 vial 09/03/21 Unknown Rx Insulin Lispro See Protocol SQ TIDAC #1 vial 09/03/21 Unknown Rx ED Physical Exam - General Limitations: No Limitations General appearance: alert, in no apparent distress - Head Head exam: Present: atraumatic, normocephalic - Eye Eye exam: Present: normal appearance. Absent: conjunctival injection, periorbital swelling, periorbital tenderness - ENT ENT exam: Absent: normal exam, normal orophraynx, mucous membranes dry - Neck Neck exam: Present: normal inspection, full ROM. Absent: tenderness, lymphadenopathy, thyromegaly - Respiratory Respiratory exam: Present: normal lung sounds bilaterally. Absent: respiratory distress, wheezes, rales, rhonchi, stridor, chest wall tenderness - Cardiovascular Cardiovascular Exam: Present: regular rate, normal heart sounds - GI/Abdominal GI/Abdominal exam: Present: soft, normal bowel sounds. Absent: distended, tenderness, guarding, rebound, rigid - Extremities Exam Extremities exam: Present: normal inspection, normal capillary refill, pedal edema. Absent: joint swelling, calf tenderness - Back Exam Back exam: Present: normal inspection. Absent: CVA tenderness (R), CVA tenderness (L) - Neurological Exam Neurological exam: Present: alert, oriented X3, CN II-XII intact, normal gait - Psychiatric Psychiatric exam: Present: normal affect, normal mood - Skin Skin exam: Present: warm, dry, intact, normal color ED Course Vital Signs 09/02/21 09/03/21 09/03/21 19:50 08:03 10:06 Temperature 98.6 F Pulse Rate 75 77 Respiratory 20 18 Rate Blood Pressure 145/58 Blood Pressure 164/64 [Right] O2 Sat by Pulse 95 95 99 Oximetry ED Medical Decision Making - Lab Data Result diagrams: 09/02/21 20:57 09/02/21 20:57 - Medical Decision Making 55-year-old black female with a past medical history of diabetes presents to the emergency department for evaluation of elevated blood sugar. She states that for the last several weeks she has had some increased thirst at home and she and feels like it is related to an elevated blood sugar. She states that for the last 3 months she has been out of her Lantus and Humalog insulin. She states that she initially did not have any money to get it filled but now she has money but needs a new prescription. She denies chest pain, shortness of breath, naus ea, vomiting, dizziness, and diaphoresis. Physical exam unremarkable. Labs without any signs of DKA. She was noted to have a blood sugar at 8:00 this morning of 324, but patient states that she had just finished a bag of potato chips before her blood sugar was taken. Patient will be given a one-time dose of regular insulin subcu based on blood sugar of 324 from a sliding scale of blood glucose -1 100/30 which will be 8 units of insulin subcu. Patient will be given refill of Lantus and Humalog insulin and advised to follow-up with her primary care provider for further evaluation and management. She is advised to return to the emergency department for any concerning symptoms. She verbalizes understanding of and agreement with plan of care. Critical care attestation.: If time is entered above; I have spent that time in minutes in the direct care of this critically ill patient, excluding procedure time. ED Disposition Clinical Impression: Hyperglycemia, Medication refill Disposition: HOME / SELF CARE / HOMELESS Is pt being admited?: No Does the pt Need Aspirin: No Condition: Stable Instructions: Insulin Treatment for Diabetes Mellitus, Hyperglycemia, [id number], Insulin Glargine injection Additional Instructions: Take medications as prescribed. Follow-up with your primary care provider for further evaluation and management. Return to the emergency department as needed. Prescriptions: Insulin Glargine [Lantus VIAL] 50 units SUB-Q QHS #1 vial Insulin Lispro See Protocol SQ TIDAC #1 vial Referrals: PRIMARY CARE, [Primary Care Provider] - 3-5 Days
== END 2021-09-03 12:05 | disposition home or self-care (01) ==
LOC: ED 18:13
DX: E11.65 Type 2 diabetes mellitus with hyperglycemia (principal); Z76.0 Encounter for issue of repeat prescription; I10 Essential (primary) hypertension; I82.409 Acute embolism and thrombosis of unspecified deep veins of unspecified lower extremity; R56.9 Unspecified convulsions; F20.9 Schizophrenia, unspecified; G62.9 Polyneuropathy, unspecified; E78.5 Hyperlipidemia, unspecified; Z98.890 Other specified postprocedural states; Z88.6 Allergy status to analgesic agent; Z88.8 Allergy status to other drugs, medicaments and biological substances
CPT/HCPCS: 36415; 80053; 82962; 85025; 99283; Q9967; J1815

== ENCOUNTER 2021-09-27 23:10 | Emergency (ER) | payer MEDICARE ==
[2021-09-28 01:14] LABS: Basophils # (Auto) 0.1 K/mm3 (0.0-0.1); Basophils % (Auto) 1.4 % (0.0-1.8); Eosinophils # (Auto) 0.3 K/mm3 (0.0-0.4); Eosinophils % (Auto) 3.5 % (0.0-4.3); Hematocrit 38.1 % (30.3-42.9); Hemoglobin 12.3 gm/dl (10.1-14.3); Lymphocytes # (Auto) 3.9 K/mm3 (1.2-5.4); Lymphocytes % (Auto) 40.9 % (13.4-35.0); Mean Corpuscular HGB Conc 32 % (30-34); Mean Corpuscular Volume 89 fl (79-97); Monocytes # (Auto) 0.8 K/mm3 (0.0-0.8); Monocytes % (Auto) 8.3 % (0.0-7.3); Platelet Count 183 K/mm3 (140-440); Red Blood Count 4.31 M/mm3 (3.65-5.03); Red Cell Distribution Width 15.1 % (13.2-15.2)
[2021-09-28 01:32] LABS: Alanine Aminotransferase 9 units/L (7-56); Albumin 3.4 g/dL (3.9-5); Blood Urea Nitrogen 21 mg/dL (7-17); Calcium 8.9 mg/dL (8.4-10.2); Hemolysis Index 4
[2021-09-28 01:51] LABS: BUN/Creatinine Ratio 30
[2021-09-28] MEDS ORDERED: ALBUTEROL 2.5 MG/3 ML NEBU IH ONE ×2 (02:26→04:54)
[2021-09-28] MEDS ORDERED: KETOROLAC 30 MG/1 ML INJ IV ONE (02:27)
[2021-09-28] MEDS ORDERED: SODIUM CHLORIDE 0.9% 250ML 250 ML IV ONE (02:29)
--- NOTE | 2021-09-28 02:34 | Emergency Department Report ---
ED Abdominal Pain HPI - General Chief Complaint: Abdominal Pain Stated Complaint: LEFT LEG AND ABD PAIN Time Seen by Provider: 09/28/21 01:58 Source: patient, EMS Mode of arrival: Stretcher Limitations: No Limitations - History of Present Illness Initial Comments: This is a 55-year-old female with a history of diabetes, hypertension, DVT (not on anticoagulation), asthma, hyperlipidemia, and schizophrenia who presents to the emergency department with many complaints that have been worsening over the last 2 weeks. Patient complains of sharp, severe lower abdominal pain, without associated nausea, vomiting, diarrhea, or constipation. Patient denies previous similar pain. Patient does report left hip and left leg pain, which she says is consistent with arthritis and DVT pain patient denies chest pain, shortness of breath, palpitations, or any other symptoms. Patient denies being on oxygen at baseline. Patient reports compliance with her medication. Patient denies knowing which medications make her symptoms better. Patient states that her ambulating and palpation makes her abdominal pain and leg. - Related Data Home Medications Medication Instructions Recorded Confirmed Last Taken Citalopram [Celexa] 20 mg PO QDAY 06/03/20 09/27/20 Unknown Previous Rx's Medication Instructions Recorded Last Taken Type Ondansetron [Zofran ODT TAB] 4 mg PO Q4HR PRN #20 tab.rapdis 09/23/20 Unknown Rx Furosemide [Lasix TAB] 40 mg PO QDAY #30 tablet 10/03/20 Unknown Rx Citalopram Hydrobromide [celeXA] 40 mg PO DAILY #30 tab 07/06/21 Unknown Rx Colchicine [Colcrys] 0.6 mg PO BID #30 tablet 07/06/[address] [Depgera Dr] 500 mg PO BID #60 tab 07/06/21 Unknown Rx Losartan [Cozaar] 25 mg PO QDAY #30 tab 07/06/21 Unknown Rx Ziprasidone [Geodon] 40 mg PO DAILY #30 cap 07/06/21 Unknown Rx Acetaminophen [Non-Aspirin Extra 500 mg PO Q6HR PRN #30 tablet 07/24/21 Unknown Rx Strength] Albuterol Sulfate [Proair 90 mcg IH Q4HR PRN #2 aer.pow.ba 07/24/21 Unknown Rx Respiclick] Ipratropium (Nf) [Atrovent] 2 puff IH Q6HR PRN #1 inha 07/24/21 Unknown Rx predniSONE [Deltasone] 40 mg PO QDAY #8 tab 07/24/21 Unknown Rx Insulin Glargine [Lantus VIAL] 50 units SUB-Q QHS #1 vial 09/03/21 Unknown Rx Insulin Lispro See Protocol SQ TIDAC #1 vial 09/03/21 Unknown Rx HYDROcodone/APAP 5-325 [[place] 1 each PO Q6HR PRN #8 tablet 09/28/21 Unknown Rx 5/325] Polyethylene Glycol 3350 [Miralax] 119 gm PO DAILY 14 Days 09/28/21 Unknown Rx Allergies Allergy/AdvReac Type Severity Reaction Status Date / Time hydrocortisone Allergy Unknown Verified 07/23/21 23:09 [From EarSol-HC] ibuprofen Allergy Itching Verified 07/23/21 23:09 Ear drops Allergy Unknown Uncoded 07/23/21 23:09 ED Review of Systems ROS: Stated complaint: LEFT LEG AND ABD PAIN Other details as noted in HPI Comment: All other systems reviewed and negative Constitutional: denies: chills, diaphoresis, fever, weakness Eyes: denies: eye pain, eye discharge, vision change ENT: denies: ear pain, throat pain Respiratory: no symptoms reported. denies: cough, shortness of breath, SOB with exertion, wheezing Cardiovascular: denies: chest pain, palpitations Endocrine: no symptoms reported Gastrointestinal: abdominal pain. denies: nausea, diarrhea Genitourinary: denies: urgency, dysuria, discharge Musculoskeletal: arthralgia, myalgia. denies: back pain, joint swelling Skin: denies: rash, lesions Neurological: denies: headache, weakness, paresthesias Psychiatric: denies: anxiety, depression Hematological/Lymphatic: denies: easy bleeding, easy bruising ED Past Medical Hx - Past Medical History Previous Medical History?: Yes Hx Hypertension: Yes Hx Congestive Heart Failure: No Hx Diabetes: Yes Hx Deep Vein Thrombosis: Yes Hx Seizures: Yes Hx Psychiatric Treatment: Yes (schizophrenia) Hx Asthma: No Hx COPD: No Additional medical history: Neuropathy, Hyperlipidemia - Surgical History Past Surgical History?: Yes Hx Cholecystectomy: Yes Additional Surgical History: , L rotary cuff, tubal ligation - Social History Smoking Status: Never Smoker Substance Use Type: None - Medications Home Medications: Home Medications Medication Instructions Recorded Confirmed Last Taken Type Citalopram [Celexa] 20 mg PO QDAY 06/03/20 09/27/20 Unknown History Ondansetron [Zofran ODT TAB] 4 mg PO Q4HR PRN #20 tab.rapdis 09/23/20 Unknown Rx Furosemide [Lasix TAB] 40 mg PO QDAY #30 tablet 10/03/20 Unknown Rx Citalopram Hydrobromide [celeXA] 40 mg PO DAILY #30 tab 07/06/21 Unknown Rx Colchicine [Colcrys] 0.6 mg PO BID #30 tablet 07/06/[address] [Depakote Dr] 500 mg PO BID #60 tab 07/06/21 Unknown Rx Losartan [Cozaar] 25 mg PO QDAY #30 tab 07/06/21 Unknown Rx Ziprasidone [Geodon] 40 mg PO DAILY #30 cap 07/06/21 Unknown Rx Acetaminophen [Non-Aspirin Extra 500 mg PO Q6HR PRN #30 tablet 07/24/21 Unknown Rx Strength] Albuterol Sulfate [Proair 90 mcg IH Q4HR PRN #2 aer.pow.ba 07/24/21 Unknown Rx Respiclick] Ipratropium (Nf) [Atrovent] 2 puff IH Q6HR PRN #1 inha 07/24/21 Unknown Rx predniSONE [Deltasone] 40 mg PO QDAY #8 tab 07/24/21 Unknown Rx Insulin Glargine [Lantus VIAL] 50 units SUB-Q QHS #1 vial 09/03/21 Unknown Rx Insulin Lispro See Protocol SQ TIDAC #1 vial 09/03/21 Unknown Rx HYDROcodone/APAP 5-325 [[place] 1 each PO Q6HR PRN #8 tablet 09/28/21 Unknown Rx 5/325] Polyethylene Glycol 3350 [Miralax] 119 gm PO DAILY 14 Days 09/28/21 Unknown Rx ED Physical Exam - General Limitations: No Limitations General appearance: alert, in no apparent distress, obese - Head Head exam: Present: atraumatic, normocephalic - Eye Eye exam: Present: normal appearance, PERRL, EOMI - ENT ENT exam: Present: mucous membranes moist - Neck Neck exam: Present: normal inspection - Respiratory Respiratory exam: Present: normal lung sounds bilaterally, wheezes, prolonged expiratory. Absent: respiratory distress, chest wall tenderness, decreased breath sounds - Cardiovascular Cardiovascular Exam: Present: regular rate, normal rhythm. Absent: systolic murmur, diastolic murmur, rubs, gallop - GI/Abdominal GI/Abdominal exam: Present: soft, distended, tenderness (Bilateral lower abdominal tenderness left greater than right), normal bowel sounds - Extremities Exam Extremities exam: Present: normal inspection, tenderness (Left hip tenderness), pedal edema (Bilateral pedal edema left greater than right), calf tenderness (Left calf tenderness) - Back Exam Back exam: Present: normal inspection - Neurological Exam Neurological exam: Present: alert, oriented X3 - Psychiatric Psychiatric exam: Present: normal affect, normal mood - Skin Skin exam: Present: warm, dry, intact, normal color. Absent: rash ED Course Vital Signs 09/27/21 09/28/21 09/28/21 23:11 00:53 01:00 Temperature 98 F Pulse Rate 70 69 71 Pulse Rate [ Anterior Bilateral Throughout] Pulse Rate [ Anterior Bilateral] Respiratory 18 18 18 Rate Respiratory Rate [Anterior Bilateral] Blood Pressure 168/93 188/66 O2 Sat by Pulse 96 91 92 Oximetry 09/28/21 09/28/21 09/28/21 01:15 01:30 01:45 Temperature Pulse Rate 69 67 68 Pulse Rate [ Anterior Bilateral Throughout] Pulse Rate [ Anterior Bilateral] Respiratory 13 13 15 Rate Respiratory Rate [Anterior Bilateral] Blood Pressure 164/74 164/74 136/51 O2 Sat by Pulse 88 90 88 Oximetry 09/28/21 09/28/21 09/28/21 02:00 02:15 02:30 Temperature Pulse Rate 68 69 69 Pulse Rate [ Anterior Bilateral Throughout] Pulse Rate [ Anterior Bilateral] Respiratory 14 14 15 Rate Respiratory Rate [Anterior Bilateral] Blood Pressure 135/59 135/59 O2 Sat by Pulse 89 87 90 Oximetry 09/28/21 09/28/21 09/28/21 02:46 03:02 03:15 Temperature Pulse Rate 68 70 70 Pulse Rate [ Anterior Bilateral Throughout] Pulse Rate [ Anterior Bilateral] Respiratory 13 16 12 Rate Respiratory Rate [Anterior Bilateral] Blood Pressure 135/59 191/63 O2 Sat by Pulse 90 90 89 Oximetry 09/28/21 09/28/21 09/28/21 03:30 05:00 05:15 Temperature Pulse Rate 68 Pulse Rate [ 70 Anterior Bilateral Throughout] Pulse Rate [ 68 Anterior Bilateral] Respiratory 12 Rate Respiratory 18 Rate [Anterior Bilateral] Blood Pressure 193/75 191/63 191/63 O2 Sat by Pulse 92 97 93 Oximetry 09/28/21 06:14 Temperature Pulse Rate Pulse Rate [ Anterior Bilateral Throughout] Pulse Rate [ Anterior Bilateral] Respiratory Rate Respiratory Rate [Anterior Bilateral] Blood Pressure O2 Sat by Pulse 96 Oximetry - Reevaluation(s) Reevaluation #1: 09/28/21 06:40 Patient has improvement of symptoms, is no longer wheezing, and will be discharg ed home. Patient understands that she has chronic DVT, and does not want to be placed back on blood thinners, at this time. ED Medical Decision Making - Lab Data Result diagrams: 09/28/21 00:55 09/28/21 00:55 - Radiology Data Radiology results: report reviewed - Differential Diagnosis Malingering, diverticulitis, DVT Critical care attestation.: If time is entered above; I have spent that time in minutes in the direct care of this critically ill patient, excluding procedure time. ED Disposition Clinical Impression: Chronic deep vein thrombosis (DVT) Qualifiers: DVT location: lower extremity Affected thrombotic vein of extremity: femoral Laterality: left Qualified Code(s): I82.512 - Chronic embolism and thrombosis of left femoral vein Constipation Qualifiers: Constipation type: unspecified constipation type Qualified Code(s): K59.00 - Constipation, unspecified Disposition: 01 HOME / SELF CARE / HOMELESS Is pt being admited?: No Condition: Stable Instructions: Abdominal Pain (ED), Chronic Constipation, Constipation, Adult, Venous Thromboembolism Prevention, Deep Vein Thrombosis Prescriptions: Polyethylene Glycol 3350 [Miralax] 119 gm PO DAILY 14 Days HYDROcodone/APAP 5-325 [[place] 5/325] 1 each PO Q6HR PRN #8 tablet PRN Reason: Pain Time of Disposition: 06:39
[2021-09-28 03:34] LABS: INR 0.88 (0.87-1.13)
[2021-09-28 03:35] LABS: Partial Thromboplastin Time 25.9 Sec. (24.2-36.6)
--- NOTE | 2021-09-28 03:44 | Vascular Lab Report ---
Left lower extremity duplex Doppler ultrasound INDICATION: Evaluate for DVT FINDINGS: Chronic dialysis and DVT within the left common femoral vein, popliteal veins. The left per ely veins are not visualized. There is some compression and augmentation of the superficial femoral vein and posterior tibial veins. IMPRESSION: Chronic DVT within the left common femoral and popliteal veins. Signer Name: Jaden Kowalski MD Signed: 09/28/2021 3:40 AM Workstation Name: [id number]
[2021-09-28 04:27] VITALS: BP 191/63
--- NOTE | 2021-09-28 04:56 | Cat Scan Report ---
CT ABDOMEN AND PELVIS WITHOUT CONTRAST HISTORY: lower abdominal pain. COMPARISON: None. TECHNIQUE: CT images of the abdomen and pelvis were obtained without administration of intravenous co ntrast. All CT scans at this location are performed using CT dose reduction for ALARA by means of au tomated exposure control. FINDINGS: Lungs/bones: Mild interstitial prominence and densities in the lower lungs with mild edema Abdomen/pelvis: Within limits of a noncontrast examination the liver, spleen, pancreas appear normal . Thickening and mild enlargement bilateral adrenal glands. Prior cholecystectomy. The appendix appea rs normal. There is constipation throughout the colon. Urinary bladder is distended. Mildly prominent inguinal nodes are identified. Mild prominence of the left renal pelvis however this may represent e xtra renal pelvis and unchanged since prior exam. No definite renal stone. No dominant mesenteric radha nopathy. Degenerative changes SI joints bilaterally. IMPRESSION: 1. No definite renal or ureteral stone. Extrarenal pelvis on the left. Urinary bladder is distended. Correlation urinalysis 2. Constipation throughout the colon. No focal inflammatory change. No bowel obstruction. 3. Mild atelectasis in the right lower lung Signer Name: Jaden Kowalski MD Signed: 09/28/2021 4:51 AM Workstation Name: [id number]
== END 2021-09-28 06:55 | disposition home or self-care (01) ==
LOC: ED 23:10
DX: I82.502 Chronic embolism and thrombosis of unspecified deep veins of left lower extremity (principal); K59.00 Constipation, unspecified; I10 Essential (primary) hypertension; E11.9 Type 2 diabetes mellitus without complications; Z90.49 Acquired absence of other specified parts of digestive tract
CPT/HCPCS: 36415; 74176; 80053; 83690; 85025; 85610; 85730; 93971; 94640; 96374; 99284; J1885; 94644

== ENCOUNTER 2021-10-23 21:41 | Emergency (ER) | payer MEDICARE ==
[2021-10-24] MEDS ORDERED: ASPIRIN 325 MG TAB PO ONE (01:10)
[2021-10-24 01:52] LABS: Basophils # (Auto) 0.1 K/mm3 (0.0-0.1); Basophils % (Auto) 0.8 % (0.0-1.8); Eosinophils # (Auto) 0.3 K/mm3 (0.0-0.4); Eosinophils % (Auto) 2.9 % (0.0-4.3); Hematocrit 36.7 % (30.3-42.9); Hemoglobin 11.8 gm/dl (10.1-14.3); Lymphocytes # (Auto) 3.7 K/mm3 (1.2-5.4); Lymphocytes % (Auto) 37.3 % (13.4-35.0); Mean Corpuscular HGB Conc 32 % (30-34); Mean Corpuscular Volume 88 fl (79-97); Monocytes # (Auto) 0.8 K/mm3 (0.0-0.8); Monocytes % (Auto) 8.3 % (0.0-7.3); Platelet Count 220 K/mm3 (140-440); Red Blood Count 4.19 M/mm3 (3.65-5.03); Red Cell Distribution Width 15.1 % (13.2-15.2)
--- NOTE | 2021-10-24 01:52 | XRay Report ---
CHEST 2 VIEWS INDICATION / CLINICAL INFORMATION: chestpain. COMPARISON: Chest x-ray 07/24/2021 FINDINGS: SUPPORT DEVICES: None. HEART / MEDIASTINUM: Heart size and mediastinal contour appear within normal limits. LUNGS / PLEURA: No significant pulmonary or pleural abnormality. No pneumothorax. BONES: No significant osseous abnormality. ADDITIONAL FINDINGS: No significant additional findings. IMPRESSION: 1. No active cardiopulmonary disease. Signer Name: Naman Bauer II, MD Signed: 10/24/2021 1:48 AM Workstation Name: [id number]
[2021-10-24 01:55] LABS: Alanine Aminotransferase 8 units/L (7-56); Albumin 3.6 g/dL (3.9-5); BUN/Creatinine Ratio 30; Blood Urea Nitrogen 27 mg/dL (7-17); Calcium 8.8 mg/dL (8.4-10.2); Hemolysis Index 8
[2021-10-24] MEDS ORDERED: MORPHINE 4 MG/1 ML INJ IV ONE (05:48)
--- NOTE | 2021-10-24 06:20 | Cat Scan Report ---
CTA CHEST WITH CONTRAST INDICATION / CLINICAL INFORMATION: chest pain . DVT. TECHNIQUE: Axial CT images were obtained through the chest after injection of IV contrast. 3 plane NC P and/or 3D reconstructions were produced. All CT scans at this location are performed using CT dose reduction for ALARA by means of automated exposure control. COMPARISON: CT angiography of the chest performed 09/30/2020 FINDINGS: VASCULAR FINDINGS: PULMONARY ARTERY: Pulmonary artery is normal in size. No filling defects are present compatible with pulmonary artery embolus.. THORACIC AORTA: No significant abnormality. CORONARY ARTERY CALCIFICATION: Present -- Mild. NONVASCULAR FINDINGS: LOWER NECK: Soft tissues and musculature of the lower neck demonstrate no significant abnormality. Th e thyroid demonstrates no significant abnormality. HEART: No significant abnormality. MEDIASTINUM / SUSAN: No significant abnormality. ESOPHAGUS: No significant abnormality. LYMPH NODES: No adenopathy within the axilla, mediastinum, or susan. LUNGS: Left lung demonstrates minimal scarring and/or atelectasis. Scattered small foci of groundglas s attenuation within the left upper lobe additionally are demonstrated. No focal consolidation. No en dobronchial lesion. PLEURA: No pleural effusion. No pneumothorax. THORACIC SOFT TISSUES: No significant abnormality of the chest wall or upper thoracic musculature. BONES: No significant skeletal abnormalities. ADDITIONAL CHEST FINDINGS: None. UPPER ABDOMEN: Previous cholecystectomy. Bilateral adrenal enlargement that may reflect adrenal hyper trophy. IMPRESSION: 1. No CT evidence for pulmonary embolism. 2. No acute findings. Signer Name: Naman Bauer II, MD Signed: 10/24/2021 6:16 AM Workstation Name: [id number]
--- NOTE | 2021-10-24 06:33 | Emergency Department Report ---
ED Chest Pain HPI - General Chief Complaint: Chest Pain Stated Complaint: CHEST PAIN PUI?: No Time Seen by Provider: 10/24/21 01:14 Source: patient Mode of arrival: Stretcher Limitations: No Limitations - History of Present Illness Initial Comments: Chestpain since 2029 yesterday. Left lower extremity pain since yesterday. pt has DVT used to be on DOAcs but stopped cos she cannot afford it MD Complaint: chest pain -: Gradual, days(s) Onset: during rest Pain Location: left chest Severity scale (0 -10): 3 Quality: aching Worsens With: nothing - Related Data Home Medications Medication Instructions Recorded Confirmed Last Taken Citalopram [Celexa] 20 mg PO QDAY 06/03/20 09/27/20 Unknown Previous Rx's Medication Instructions Recorded Last Taken Type Ondansetron [Zofran ODT TAB] 4 mg PO Q4HR PRN #20 tab.rapdis 09/23/20 Unknown Rx Furosemide [Lasix TAB] 40 mg PO QDAY #30 tablet 10/03/20 Unknown Rx Citalopram Hydrobromide [celeXA] 40 mg PO DAILY #30 tab 07/06/21 Unknown Rx Colchicine [Colcrys] 0.6 mg PO BID #30 tablet 07/06/[address] [Depakote Dr] 500 mg PO BID #60 tab 07/06/21 Unknown Rx Losartan [Cozaar] 25 mg PO QDAY #30 tab 07/06/21 Unknown Rx Ziprasidone [Geodon] 40 mg PO DAILY #30 cap 07/06/21 Unknown Rx Acetaminophen [Non-Aspirin Extra 500 mg PO Q6HR PRN #30 tablet 07/24/21 Unknown Rx Strength] Albuterol Sulfate [Proair 90 mcg IH Q4HR PRN #2 aer.pow.ba 07/24/21 Unknown Rx Respiclick] Ipratropium (Nf) [Atrovent] 2 puff IH Q6HR PRN #1 inha 07/24/21 Unknown Rx predniSONE [Deltasone] 40 mg PO QDAY #8 tab 07/24/21 Unknown Rx Insulin Glargine [Lantus VIAL] 50 units SUB-Q QHS #1 vial 09/03/21 Unknown Rx Insulin Lispro See Protocol SQ TIDAC #1 vial 09/03/21 Unknown Rx HYDROcodone/APAP 5-325 [[place] 1 each PO Q6HR PRN #8 tablet 09/28/21 Unknown Rx 5/325] Polyethylene Glycol 3350 [Miralax] 119 gm PO DAILY 14 Days 09/28/21 Unknown Rx Allergies Allergy/AdvReac Type Severity Reaction Status Date / Time hydrocortisone Allergy Unknown Verified 07/23/21 23:09 [From EarSol-[facility]] ibuprofen Allergy Itching Verified 07/23/21 23:09 Ear drops Allergy Unknown Uncoded 07/23/21 23:09 Heart Score - HEART Score History: Slightly suspicious EKG: Normal Age: 45-65 Risk factors: 1-2 risk factors Troponin: < normal limit HEART Score: 2 - EKG Read Time Time EKG Completed: 01:03 EKG Read Time: 01:03 - Critical Actions Critical Actions: 0-3 pts:0.9-1.7%risk of adverse cardiac event.Candidate for discharge ED Review of Systems ROS: Stated complaint: CHEST PAIN Other details as noted in HPI ED Past Medical Hx - Past Medical History Previous Medical History?: Yes Hx Hypertension: Yes Hx Congestive Heart Failure: No Hx Diabetes: Yes Hx Deep Vein Thrombosis: Yes Hx Seizures: Yes Hx Psychiatric Treatment: Yes (schizophrenia) Hx Asthma: No Hx COPD: No Additional medical history: Neuropathy, Hyperlipidemia - Surgical History Past Surgical History?: Yes Hx Cholecystectomy: Yes Additional Surgical History: , L rotary cuff, tubal ligation - Social History Smoking Status: Current Every Day Smoker Substance Use Type: None - Medications Home Medications: Home Medications Medication Instructions Recorded Confirmed Last Taken Type Citalopram [Celexa] 20 mg PO QDAY 06/03/20 09/27/20 Unknown History Ondansetron [Zofran ODT TAB] 4 mg PO Q4HR PRN #20 tab.rapdis 09/23/20 Unknown Rx Furosemide [Lasix TAB] 40 mg PO QDAY #30 tablet 10/03/20 Unknown Rx Citalopram Hydrobromide [celeXA] 40 mg PO DAILY #30 tab 07/06/21 Unknown Rx Colchicine [Colcrys] 0.6 mg PO BID #30 tablet 07/06/[address] [Depakote Dr] 500 mg PO BID #60 tab 07/06/21 Unknown Rx Losartan [Cozaar] 25 mg PO QDAY #30 tab 07/06/21 Unknown Rx Ziprasidone [Geodon] 40 mg PO DAILY #30 cap 07/06/21 Unknown Rx Acetaminophen [Non-Aspirin Extra 500 mg PO Q6HR PRN #30 tablet 07/24/21 Unknown Rx Strength] Albuterol Sulfate [Proair 90 mcg IH Q4HR PRN #2 aer.pow.ba 07/24/21 Unknown Rx Respiclick] Ipratropium (Nf) [Atrovent] 2 puff IH Q6HR PRN #1 inha 07/24/21 Unknown Rx predniSONE [Deltasone] 40 mg PO QDAY #8 tab 07/24/21 Unknown Rx Insulin Glargine [Lantus VIAL] 50 units SUB-Q QHS #1 vial 09/03/21 Unknown Rx Insulin Lispro See Protocol SQ TIDAC #1 vial 09/03/21 Unknown Rx HYDROcodone/APAP 5-325 [[place] 1 each PO Q6HR PRN #8 tablet 09/28/21 Unknown Rx 5/325] Polyethylene Glycol 3350 [Miralax] 119 gm PO DAILY 14 Days 09/28/21 Unknown Rx ED Physical Exam - General Limitations: No Limitations ED Course Vital Signs 10/23/21 21:41 Temperature 98.1 F Pulse Rate 80 Respiratory 18 Rate Blood Pressure 160/80 O2 Sat by Pulse 97 Oximetry ED Medical Decision Making - Lab Data Result diagrams: 10/24/21 01:18 10/24/21 01:18 - EKG Data -: EKG Interpreted by Me EKG shows normal: sinus rhythm Rate: normal - EKG Data Interpretation: no acute changes Critical care attestation.: If time is entered above; I have spent that time in minutes in the direct care of this critically ill patient, excluding procedure time. ED Disposition Clinical Impression: Chest pain Disposition: 01 HOME / SELF CARE / HOMELESS Is pt being admited?: No Does the pt Need Aspirin: No Condition: Stable Instructions: Nonspecific Chest Pain, Adult Referrals: KAREN PLATT MD [Primary Care Provider] - 3-5 Days
[2021-10-24 06:54] VITALS: BP 155/88
--- NOTE | 2021-10-27 09:43 | Electrocardiograph Report ---
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
== END 2021-10-24 06:55 | disposition home or self-care (01) ==
LOC: ED 21:41
DX: R07.89 Other chest pain (principal); M79.662 Pain in left lower leg; I10 Essential (primary) hypertension; E11.9 Type 2 diabetes mellitus without complications; F20.9 Schizophrenia, unspecified; F17.200 Nicotine dependence, unspecified, uncomplicated; Z86.718 Personal history of other venous thrombosis and embolism; Z88.6 Allergy status to analgesic agent; Z88.8 Allergy status to other drugs, medicaments and biological substances; Z79.899 Other long term (current) drug therapy
CPT/HCPCS: 36415; 71046; 71275; 80053; 84484; 85025; 93005; 96374; 99285; J2270; Q9967

== ENCOUNTER 2021-11-01 14:25 | Emergency (ER) | payer MEDICARE ==
[2021-11-02 02:28] VITALS: BP 175/56
[2021-11-02 05:18] LABS: Alanine Aminotransferase 9 units/L (7-56); Albumin 3.8 g/dL (3.9-5); BUN/Creatinine Ratio 20; Blood Urea Nitrogen 16 mg/dL (7-17); Calcium 8.7 mg/dL (8.4-10.2); Hemolysis Index 2
[2021-11-02 05:25] LABS: Basophils # (Auto) 0.1 K/mm3 (0.0-0.1); Basophils % (Auto) 0.9 % (0.0-1.8); Eosinophils # (Auto) 0.3 K/mm3 (0.0-0.4); Hematocrit 38.8 % (30.3-42.9); Hemoglobin 12.5 gm/dl (10.1-14.3); Lymphocytes % (Auto) 32.4 % (13.4-35.0); Mean Corpuscular HGB Conc 32 % (30-34); Mean Corpuscular Volume 88 fl (79-97); Monocytes # (Auto) 0.6 K/mm3 (0.0-0.8); Monocytes % (Auto) 6.2 % (0.0-7.3); Platelet Count 226 K/mm3 (140-440); Red Blood Count 4.43 M/mm3 (3.65-5.03); Red Cell Distribution Width 15.8 % (13.2-15.2)
[2021-11-02] MEDS ORDERED: ACETAMINOPHEN 325 MG TAB PO ONE (05:49)
[2021-11-02] MEDS ORDERED: IBUPROFEN 800 MG TAB PO ONE (05:49)
--- NOTE | 2021-11-02 05:54 | Emergency Department Report ---
ED Extremity Problem HPI - General Chief complaint: Extremity Problem,Nontraumatic Stated complaint: SLURRED SPEECH/OLD BLOOD CLOT IN LEFT LEG Time Seen by Provider: 11/02/21 05:28 Source: patient, EMS Mode of arrival: Stretcher Limitations: No Limitations - History of Present Illness Initial comments: This is a pleasant 55-year-old female with medical history of deep venous thrombosis who is supposed to be on Eliquis however patient is noncompliant to the medication as patient is out of medication due to financial situation. Patient said that her last intake of Eliquis was back in July of this year. Patient also has a history of hypertension also diabetes. According patient the reason that she came to the ER today is because of left lower extremity swelling which has been ongoing for the past couple weeks. Patient said that she was here recently and the work-up shows that she has blood clot. Patient endorsed left lower extremity pain. Patient denies any trauma or injury. Patient denies any other symptoms. Patient denies fever chill night sweat dizziness blurred vision lightheadedness headache tinnitus ear pain runny nose sore throat loss of taste loss smell chest pain palpitation short breath cough abdominal pain nausea vomiting diarrhea constipation joint pain new rash and heat or cold intolerance. Severity scale (0 -10): 8 - Related Data Home Medications Medication Instructions Recorded Confirmed Last Taken Citalopram [Celexa] 20 mg PO QDAY 06/03/20 09/27/20 Unknown Previous Rx's Medication Instructions Recorded Last Taken Type Ondansetron [Zofran ODT TAB] 4 mg PO Q4HR PRN #20 tab.rapdis 09/23/20 Unknown Rx Furosemide [Lasix TAB] 40 mg PO QDAY #30 tablet 10/03/20 Unknown Rx Citalopram Hydrobromide [celeXA] 40 mg PO DAILY #30 tab 07/06/21 Unknown Rx Colchicine [Colcrys] 0.6 mg PO BID #30 tablet 07/06/21 Unknown Rx Divalproex [Ha Gill] 500 mg PO BID #60 tab 07/06/21 Unknown Rx Losartan [Cozaar] 25 mg PO QDAY #30 tab 07/06/21 Unknown Rx Ziprasidone [Geodon] 40 mg PO DAILY #30 cap 07/06/21 Unknown Rx Acetaminophen [Non-Aspirin Extra 500 mg PO Q6HR PRN #30 tablet 07/24/21 Unknown Rx Strength] Albuterol Sulfate [Proair 90 mcg IH Q4HR PRN #2 aer.pow.ba 07/24/21 Unknown Rx Respiclick] Ipratropium (Nf) [Atrovent] 2 puff IH Q6HR PRN #1 inha 07/24/21 Unknown Rx predniSONE [Deltasone] 40 mg PO QDAY #8 tab 07/24/21 Unknown Rx Insulin Glargine [Lantus VIAL] 50 units SUB-Q QHS #1 vial 09/03/21 Unknown Rx Insulin Lispro See Protocol SQ TIDAC #1 vial 09/03/21 Unknown Rx HYDROcodone/APAP 5-325 [[place] 1 each PO Q6HR PRN #8 tablet 09/28/21 Unknown Rx 5/325] Polyethylene Glycol 3350 [Miralax] 119 gm PO DAILY 14 Days 09/28/21 Unknown Rx traMADoL [Ultram] 50 mg PO Q4HR PRN #12 tablet 11/02/21 Unknown Rx Allergies Allergy/AdvReac Type Severity Reaction Status Date / Time hydrocortisone Allergy Unknown Verified 07/23/21 23:09 [From EarSol-[facility]] ibuprofen Allergy Itching Verified 07/23/21 23:09 Ear drops Allergy Unknown Uncoded 07/23/21 23:09 ED Review of Systems ROS: Stated complaint: SLURRED SPEECH/OLD BLOOD CLOT IN LEFT LEG Other details as noted in HPI Comment: All other systems reviewed and negative Constitutional: no symptoms reported, see HPI Eyes: as per HPI ENT: as per HPI Respiratory: no symptoms reported, see HPI Cardiovascular: as per HPI Gastrointestinal: as per HPI Genitourinary: as per HPI Musculoskeletal: as per HPI Skin: as per HPI Neurological: as per HPI Psychiatric: as per HPI Hematological/Lymphatic: as per HPI ED Past Medical Hx - Past Medical History Previous Medical History?: Yes Hx Hypertension: Yes Hx Congestive Heart Failure: No Hx Diabetes: Yes Hx Deep Vein Thrombosis: Yes Hx Seizures: Yes Hx Psychiatric Treatment: Yes (schizophrenia) Hx Asthma: No Hx COPD: No Additional medical history: Neuropathy, Hyperlipidemia - Surgical History Hx Cholecystectomy: Yes Additional Surgical History: , L rotary cuff, tubal ligation - Social History Smoking Status: Current Every Day Smoker Substance Use Type: None - Medications Home Medications: Home Medications Medication Instructions Recorded Confirmed Last Taken Type Citalopram [Celexa] 20 mg PO QDAY 06/03/20 09/27/20 Unknown History Ondansetron [Zofran ODT TAB] 4 mg PO Q4HR PRN #20 tab.rapdis 09/23/20 Unknown Rx Furosemide [Lasix TAB] 40 mg PO QDAY #30 tablet 10/03/20 Unknown Rx Citalopram Hydrobromide [celeXA] 40 mg PO DAILY #30 tab 07/06/21 Unknown Rx Colchicine [Colcrys] 0.6 mg PO BID #30 tablet 07/06/[address] [Depakote Dr] 500 mg PO BID #60 tab 07/06/21 Unknown Rx Losartan [Cozaar] 25 mg PO QDAY #30 tab 07/06/21 Unknown Rx Ziprasidone [Geodon] 40 mg PO DAILY #30 cap 07/06/21 Unknown Rx Acetaminophen [Non-Aspirin Extra 500 mg PO Q6HR PRN #30 tablet 07/24/21 Unknown Rx Strength] Albuterol Sulfate [Proair 90 mcg IH Q4HR PRN #2 aer.pow.ba 07/24/21 Unknown Rx Respiclick] Ipratropium (Nf) [Atrovent] 2 puff IH Q6HR PRN #1 inha 07/24/21 Unknown Rx predniSONE [Deltasone] 40 mg PO QDAY #8 tab 07/24/21 Unknown Rx Insulin Glargine [Lantus VIAL] 50 units SUB-Q QHS #1 vial 09/03/21 Unknown Rx Insulin Lispro See Protocol SQ TIDAC #1 vial 09/03/21 Unknown Rx HYDROcodone/APAP 5-325 [[place] 1 each PO Q6HR PRN #8 tablet 09/28/21 Unknown Rx 5/325] Polyethylene Glycol 3350 [Miralax] 119 gm PO DAILY 14 Days 09/28/21 Unknown Rx traMADoL [Ultram] 50 mg PO Q4HR PRN #12 tablet 11/02/21 Unknown Rx ED Physical Exam - General Limitations: No Limitations General appearance: alert, in no apparent distress - Head Head exam: Present: atraumatic, normocephalic, normal inspection - Eye Eye exam: Present: normal appearance, PERRL, EOMI Pupils: Present: normal accommodation - ENT ENT exam: Present: normal exam, mucous membranes moist - Neck Neck exam: Present: normal inspection, full ROM - Respiratory Respiratory exam: Present: normal lung sounds bilaterally. Absent: respiratory distress, wheezes, rales, rhonchi, stridor, chest wall tenderness, accessory muscle use, decreased breath sounds, prolonged expiratory - Cardiovascular Cardiovascular Exam: Present: regular rate, normal rhythm, normal heart sounds - GI/Abdominal GI/Abdominal exam: Present: soft - Extremities Exam Extremities exam: Present: normal inspection, calf tenderness (LEFT) - Back Exam Back exam: Present: full ROM - Neurological Exam Neurological exam: Present: alert, oriented X3, CN II-XII intact - Psychiatric Psychiatric exam: Present: normal affect, normal mood - Skin Skin exam: Present: warm, intact, normal color - Other Other exam information: LEFT LOWER EXTREMITY (CALF) MORE SWOLLEN THAN THE RIGHT; NO RASH/LESION. ED Course Vital Signs 11/01/21 11/02/21 14:52 02:19 Temperature 97 F L 98.0 F Pulse Rate 64 68 Respiratory 18 18 Rate Blood Pressure 175/56 Blood Pressure 118/56 [Left] O2 Sat by Pulse 96 96 Oximetry ED Medical Decision Making - Lab Data Result diagrams: 11/02/21 04:19 11/02/21 04:19 - Medical Decision Making Schuster pulmonary embolism as patient denies any short of breath or cough. Patient has been noncompliant to her medication. Patient was referred that she needs to be compliant with her Eliquis. I am having trouble prescribing Eliquis through the EMR. I will physically wr ite Eliquis on the paper prescription. Critical care attestation.: If time is entered above; I have spent that time in minutes in the direct care of this critically ill patient, excluding procedure time. ED Disposition Clinical Impression: Hx of medication noncompliance, DVT (deep venous thrombosis) Disposition: 01 HOME / SELF CARE / HOMELESS Is pt being admited?: No Does the pt Need Aspirin: No Condition: Stable Additional Instructions: Take Eliquis as prescribed for you and make a follow-up appointment with your primary care provider to be seen for further outpatient evaluation. Prescriptions: traMADoL [Ultram] 50 mg PO Q4HR PRN #12 tablet PRN Reason: Pain Time of Disposition: 05:56
== END 2021-11-02 06:54 | disposition home or self-care (01) ==
LOC: ED 14:25
DX: I82.409 Acute embolism and thrombosis of unspecified deep veins of unspecified lower extremity (principal); Z91.19 Patient's noncompliance with other medical treatment and regimen; F17.200 Nicotine dependence, unspecified, uncomplicated; I10 Essential (primary) hypertension; E11.9 Type 2 diabetes mellitus without complications; Z88.6 Allergy status to analgesic agent; Z88.8 Allergy status to other drugs, medicaments and biological substances
CPT/HCPCS: 36415; 80053; 85025; 85379; 99283